=== PATIENT | female | born 1985 | race Caucasian/White ===

== ENCOUNTER 2022-02-18 00:28 | Emergency (ER) | payer OTHER, SELFPAY ==
--- NOTE | 2022-02-18 00:39 | ED.GENADULT ---
HPI - General Adult General Time Seen by Provider: 00:39 Date Seen: 02/18/22 Chief complaint: Unspecified Complaint, Adult Stated complaint: Can't find tampon Time Seen by Provider: 02/18/22 00:33 Source: patient and family Mode of arrival: ambulatory Limitations: no limitations History of Present Illness HPI narrative: 36-year-old female who comes in with concern for vaginal foreign body. She put in a tampon about 7:00 p.m. and is unable to find it now. She is concerned cancer mother has a history of toxic shock syndrome. She denies any vaginal or pelvic pain. No other concerns today. Review of Systems Status of ROS: Reports: 10 or more systems reviewed and unremarkable except as noted in History and below Exam Narrative: Exam Narrative: General: well nourished , NAD Head: Atraumatic and normocephalic ENT: External ears and external nose are normal Eyes: Conjunctiva clear, pupils are equal reactive, external ocular motions are intact Neck: Full spontaneous range of motion of the neck Lungs: No respiratory distress Musculoskeletal: No tenderness or deformity Neurologic: No gross focal neurologic deficits Skin: Psoriatic patches on the upper extremities bilaterally : No foreign body seen Psych: Mood and affect are appropriate Course Course Hospital Course: Patient seen and examined, prior records are reviewed. Patient presents with concern for vaginal foreign body. Chaperoned pelvic exam will be performed. Reevaluation(s) Reevaluation #1: Pelvic exam performed. On speculum exam, the posterior fornix was well visualized as well the cervix, no foreign body was seen. Bimanual exam was performed as well with no foreign body palpated. Patient tolerated this well and is discharged. Time: 00:58 Medical Decision Making Medical Records Medical records reviewed: Yes I reviewed the patient's medical records Lab Data Lab results reviewed: Yes I reviewed the patient's lab results Discharge Plan Discharge Clinical Impression: Normal pelvic exam Patient Disposition: Home, Self-Care Condition: Stable Additional Instructions: No vaginal foreign bodies or tampons were seen on exam today. If you have further concerns, follow-up with primary care next week. Activity Level: No Restrictions Discharge Diet: Regular Stand Alone Forms: [employer] Info Instructions
[2022-02-18 00:44] VITALS: BP 134/91; PULSE 74; RESP 16; TEMP 36.7; O2SAT 99
--- NOTE | 2022-02-18 00:45 | PC.NURSE ---
nurse set up and at bedside with pt and pts for vaginal/speculum exam. pt tolerated procedure well.
--- NOTE | 2022-02-18 01:04 | PC.NURSE ---
pt presents with , states she thought her tampon was stuck/left in her vagina tonight. She states she put a tampon in this evening and when she went to change the tampon there was no string. pt states she was unable to find so came in to ED. Denies pain/discomfort.
[2022-02-18 01:07] VITALS: BP 134/91; PULSE 74; RESP 16; TEMP 36.7; O2SAT 99
== END 2022-02-18 01:21 | disposition home or self-care (01) ==
LOC: ED 01:22
PROVIDERS: Emergency Provider Family Medicine; PCP Physician Assistant Medical
DX: Z71.1 Person with feared health complaint in whom no diagnosis is made (principal)
CPT/HCPCS: 99282

== ENCOUNTER 2022-08-24 09:47 | Outpatient (CLI) | payer OTHER, SELFPAY ==
--- NOTE | 2022-08-24 10:15 | CRLHL7_ITS ---
For Patients: As a result of the Century Cures Act, medical imaging exams and procedure reports are released immediately into your electronic medical record. You may view this report before your referring provider. If you have questions, please contact your health care provider. Indication: Fertility testing Technique: Hysterosalpingogram performed in routine fashion. Fluoroscopic time 32 seconds. IMPRESSION: Normal patency of the fallopian tubes with spillage into the peritoneal cavity. No endometrial filling defect. Dictated by Stephen Woodall MD @ 08/24/2022 11:30:14 AM (Electronically Signed)
--- NOTE | 2022-08-24 10:45 | P.GYNPRC_ITS ---
Procedure Note Date Seen: 08/24/22 Procedure Details: PREPROCEDURE DIAGNOSIS: Primary infertility, unexplained. POSTPROCEDURE DIAGNOSIS: 1. Infertility. 2. Patent fallopian tubes bilaterally. Uniform appearance to endometrial cavity. NAME OF PROCEDURE: Hysterosalpingogram. ANESTHESIA: None. COMPLICATIONS: None. PROCEDURE: After obtaining verbal consent, the patient was placed in the dorsal lithotomy position on the x-ray table. An open-sided bivalve speculum was introduced into the vagina and the cervix easily visualized. The cervix and vagina were then prepped with Betadine. The anterior lip of the cervix was grasped with a single-tooth tenaculum for traction. A balloon tipped double- lumen catheter was then gently inserted through the cervical opening into the uterine cavity to the level of the fundus. The balloon was insufflated with 1.5 mL of air. The speculum was removed. The patient was repositioned in the supine position, covered, and the radiologist was called to the room. A hysterosalpingogram was then performed. A total of approximately 3 cc of Optiray 300 water soluble contrast dye was injected through the double-lumen catheter under moderate pressure. There was immediate fill of the uterine cavity to the cornua and immediate fill of both fallopian tubes and free spillage of dye on both sides. The balloon was deflated. The catheter was removed. Tenaculum was removed. Speculum exam revealed no bleeding from cervix. The patient tolerated the procedure well, though she did have moderate cramping discomfort during and just after the procedure. She was discharged to home in stable condition.
== END 2022-08-24 09:48 | disposition home or self-care (01) ==
LOC: RAD 09:48
PROVIDERS: PCP Physician Assistant Medical; Visit Provider Family Medicine
DX: Z31.41 Encounter for fertility testing (principal)
CPT/HCPCS: 58340; 74740; A4649; Q9967

== ENCOUNTER 2022-08-28 12:55 | Outpatient (CLI) | payer OTHER, SELFPAY ==
--- NOTE | 2022-08-28 13:00 | CRLHL7_ITS ---
For Patients: As a result of the Century Cures Act, medical imaging exams and procedure reports are released immediately into your electronic medical record. You may view this report before your referring provider. If you have questions, please contact your health care provider. INDICATION: INFERTILITY COMPARISON: none TECHNIQUE: 2D lewis scale and color Doppler images were acquired of the pelvis using a transabdominal and transvaginal approach. FINDINGS: Sonographic images demonstrate a normal size and smooth outer contour of the uterus. Uterus measures 7.6 cm in length by 2.6 cm in AP diameter by 3.1 cm in transverse dimension. The myometrium has a normal uniform echotexture. The endometrial lining appears normal and measures 6 mm in composite thickness. The right ovary measures 2.5 x 1.5 x 1.6 cm in size and the left ovary measures 2.9 x 1.8 x 2.4 cm. The ovaries demonstrate normal arterial and venous blood flow on color Doppler analysis. There are no suspicious fluid collections within the cul-de-sac. IMPRESSION: Normal pelvic ultrasound. Dictated by Stephen Woodall MD @ 08/29/2022 10:03:32 AM (Electronically Signed)
--- NOTE | 2022-08-28 15:01 | P.PCN_ITS ---
Procedure Note Time Seen by Provider: : Date Seen: 08/28/22 Provider Contact Time: Date of procedure: 08/28/22 Will [facility] bill your pro fee for this procedure?: Yes Procedure: Preop diagnosis: Infertility of unknown etiology Postop diagnosis: Same with small mass consistent with endometrial polyp Procedure: Saline sonohysterogram with ultrasound. Anesthesia: None Surgeon: Taryn Herman Procedure Description: The patient was placed in the dorsal lithotomy position. A sterile, bivalve, Graves, open-sided speculum was placed in the vaginal canal to visualize the cervix. The cervix was prepped with Betadine. The anterior lip of the cervix was grasped with a single-tooth tenaculum and a sonohysterogram Pipelle was advanced into the uterus. No cervical dilator was needed. The Pipelle balloon was filled with 3 mL air. The tenaculum and speculum were removed. The vaginal ultrasound probe was then advanced into the vaginal canal. The balloon was noted to take up most of the space in the endometrium so the air was decreased and the sonohysterogram catheter pulled to the lower uterine segment. 10 mL of saline was instilled and multiple vaginal some images were taken. The endometrium appeared thin with a single 0.6 x 0.6 cm fundal mass identified which will consistent with a polyp. The sonohysterogram catheter was then removed. The patient tolerated this procedure with significant cramping but felt well once the procedure was complete. She will make an appointment with either Dr. Herman or Dr. Vila to discuss hysteroscopy dilation and curettage. Surgeon: Taryn Herman MD
== END 2022-08-28 12:56 | disposition home or self-care (01) ==
LOC: US 12:55
PROVIDERS: PCP Physician Assistant Medical; Visit Provider Family Medicine
DX: Z31.41 Encounter for fertility testing (principal)
CPT/HCPCS: 58340; 76830; 76831; 76856; A4649

== ENCOUNTER 2022-09-26 07:28 | Day surgery (SDC) | payer OTHER, SELFPAY ==
[2022-09-26 07:51] LABS: Ur HCG Qualitative* Negative (Negative)
[2022-09-26 07:54] VITALS: BMI 32.8
[2022-09-26 08:00] VITALS: BP 133/85; PULSE 87; RESP 16; TEMP 36.7; O2SAT 98
[2022-09-26] MEDS: SODIUM CHLORIDE 0.9 % (FLUSH) 10 ML SYRINGE IVF (08:19)
[2022-09-26] MEDS: LACTATED RINGERS 1000 ML 1,000 ML 100 ML IV (08:19)
--- NOTE | 2022-09-26 08:20 | SUR.PREOP ---
Patient provided home covid negative results to RN.
--- NOTE | 2022-09-26 08:36 | PM.PROC ---
Procedure Note Time Seen by Provider: 08:36 Date Seen: 09/26/22 Date of procedure: 09/26/22 Will [facility] bill your pro fee for this procedure?: Yes Procedure: Preoperative diagnosis: 36 year-old G0 with possible endometrial polyp on sonohysterogram Postoperative diagnosis: Same Procedure: Hysteroscopy, Dilation and Curettage using the Truclear incisor Anesthesia: Conscious sedation, paracervical block. Surgeon: Taryn Herman MD Install And Repair Technician: None Estimated blood loss: 3 mL Specimen: Endometrial curettings to pathology. Findings: Exam under anesthesia: Uterus: Anteverted position, less than less than 8 week sized, mobile, with no masses or nodularity palpable. Uterus sounded to 9 cm. No adnexal masses or nodularity palpable. On hysteroscopy: Possible endometrial polyp in the right cornual area of the endometrium otherwise normal. Possibly normal slightly thickened endometrium in the right cornua. Procedure: Sharri was taken to the operating operating room more conscious sedation was found to be adequate. The patient was placed on in the dorsal lithotomy position and an exam under anesthesia was performed with findings stated above. She was then prepped and draped in a normal sterile manner. A bivalve speculum was placed in the vagina. The cervix appears nulliparous. Otherwise no abnormalities. The paracervical block was placed using 0.5% Marcaine, 5 mL was injected at the 4 and 8 o'clock positions on the cervix. The anterior lip of the cervix was grasped with a long Allis clamp. The cervix dilated to Hegar 6. The uterus sounded to 9 cm. The Truclear hysteroscope was advanced into the uterus. A diagnostic hysteroscopy was performed with normal saline as the insufflation medium. Findings are stated above. The Truclear incisor was then advanced through the camera. The curettage was performed with the incisor over an approximately 2 minutes. The incisor was then removed. The endometrial cavity appeared normal. Saline deficit at the end of the procedure 265 mL. Total saline used 700 mL. Nothing was need for hemostasis. The hysteroscope, Allis clamp and speculum were removed from the vaginal canal. The patient tolerated the procedure well. Sponge, lap and instrument counts were correct x2 at the end of the procedure. The patient was taken to the recovery area in stable condition. Surgeon: Taryn Herman MD
--- NOTE | 2022-09-26 08:45 | W.ANESCHARGE ---
Anesthesia Charges Start Date/Time Anesthesia Start Date: 09/26/22 Anesthesia Start Time: 08:53 Stop Date/Time Anesthesia Stop Date: 09/26/22 Anesthesia Stop Time: 09:33
--- NOTE | 2022-09-26 09:32 | W.ANESCHARGE ---
Anesthesia Charges Start Date/Time Anesthesia Start Date: 09/26/22 Anesthesia Start Time: 08:53 Stop Date/Time Anesthesia Stop Date: 09/26/22 Anesthesia Stop Time: 09:33
[2022-09-26 09:34] VITALS: BP 113/73; PULSE 79; RESP 16; TEMP 36.3; O2SAT 91
[2022-09-26 09:45] VITALS: BP 109/72; PULSE 66; RESP 16; O2SAT 96
[2022-09-26 10:00] VITALS: BP 109/75; PULSE 64; RESP 16; O2SAT 96
[2022-09-26 10:15] VITALS: BP 105/62; PULSE 72; RESP 16; O2SAT 96
== END 2022-09-26 10:43 | disposition home or self-care (01) ==
PROVIDERS: PCP Physician Assistant Medical; Visit Provider Obstetrics & Gynecology
PROC: 0UDB8ZZ Extraction of Endometrium, Via Natural or Artificial Opening Endoscopic (ICD-10-PCS; CPT 58558; principal; 2022-09-26 08:45)
DX: N84.0 Polyp of corpus uteri (principal)
CPT/HCPCS: 58558; 00952; 81025; 88305; J1100; J1885; J2250; J2405; J2704; J3010; J7120

== ENCOUNTER 2024-04-23 20:18 | Outpatient (CLI) | payer OTHER, SELFPAY ==
[2024-04-23] VITALS (7 sets, daily range): BP systolic 133–150; BP diastolic 73–83; PULSE 77–91; TEMP 36.4; O2SAT 96
--- OUTSIDE RECORDS SUMMARY | 2024-04-23 20:21 | XMS_ITS | Clinical Summary ---
Author Organization [facility] Address [place], [place] [address] Care Team Providers Care Junior Loan Processor Name Role Phone NeelSirsherice Guerrero DO Primary Care Provider [phone] Michael Coleman Unavailable Yefri Mejia MD Unavailable [phone] Allergies No known active allergies Medications Medication Sig Dispensed Refills Start Date End Date Status ketoconazole 2% shampoo (NIZORAL) 2 % shampooIndication s:Tinea versicolor Put on your rash daily and leave on for 5 minutes before washing off 120 mL 5 12/14/2021 Active clobetasol 0.05% (TEMOVATE 0.05% OINTMENT) 0.05 % ointmentIndicatio ns:Psoriasis Apply topically to affected area(s) 2 times daily. 60 g 2 12/14/2021 Active calcipotriene 0.005% (DOVONEX) 0.005 % ointment FOR MAINTENANCE, APPLY TO AFFECTED AREAS DAILY. 02/17/2022 Active sertraline (ZOLOFT) 25 mg tabletIndications :Generalized anxiety disorder Take 1 Tablet (25 mg) by mouth every morning. Take with 50mg for total of 75mg. 90 Tablet 3 06/08/2023 Active vit no.124/iron/folic ( VITAMIN ORAL) Take by mouth. Active levothyroxine (SYNTHROID) 150 mcg tabletIndications :Hypothyroidism (acquired) Take 1 Tablet (150 mcg) by mouth before breakfast. 90 Tablet 3 10/25/2023 Active aspirin 81 mg cap Take 81 mg by mouth once daily. Active durable medical equipment (DME)Indications: Elevated blood pressure reading without diagnosis of hypertension,Supe rvision of normal first , antepartum Automated blood pressure cuff for measuring blood pressure at home. Length of need 99 1 Each 12/24/2023 Active sertraline (ZOLOFT) 50 mg tabletIndications :Generalized anxiety disorder Take 1 Tablet (50 mg) by mouth once daily in the morning. Take with 25 mg tab for TDD 75 mg 90 Tablet 3 01/29/2024 Active Breast Pump PurchaseIndicatio ns:Care and examination of lactating mother Electric breast pump for home use. Gestational age at delivery: 40 weeks. Reason for need: return to work. Length of need: 99 months (lifetime use) 1 Each 02/27/2024 Active amoxicillin-clavu lanate (AUGMENTIN) 875-125 mg tabletIndications :Acute non-recurrent maxillary sinusitis Take 1 Tablet by mouth every 12 hours for 10 days. 20 Tablet 03/31/2024 4 Discontinue d(*Med complete/Re gimen complete/[place] of care change) Active Problems Problem Noted Date Diagnosed Date Anxiety in in second trimester, antepa rtum 03/10/2024 Overview (03/10/2024): MPP CONSULT (Dr. Spicer with initial Level II scan 01/28/24) Anxiety: She reports history of anxiety. We discussed that is not protective against mental illness. Untreated depression or anxiety can increased risk of and low weight. She is encouraged to maintain contact with her mental edu providers and seek help if she feels anxiety is worsening. Medications can be used in if clinically indicated. SSRI's are the most common medications used. She is presently on sertraline and reports doing well on this. The cardiac defects associated with Paxil not observed to be a class effect. SSRI's however are associated with pulmonary hypertension in newborns exposed in the 2nd and 3rd trimester. The overall risk of this is low, however. For acute episodes, hydroxyzine (Vistaril) of Buspirone (Buspar) are preferred over benzodiazepines. Medical therapy is a weighing of risks and benefits. Peripartum anxiety and depression risk is increased and may be seen prior to delivery in up to 50% of patients. Screening for anxious/depressive symptoms at every visit is recommended. Use of mindfulness meditation apps was advised. Elderly primigravida in second trimester 024 Hypothyroidism affecting in second tri mester 01/28/2024 Overview (03/10/2024): MPP CONSULT Dr. Spicer (With initial Level II scan) 01/28/24 Hypothyroidism: The patient reports a history of hypothyroidism. The goal of thyroid replacement remains maintenance of TSH levels <2.5mU/L in the first trimester and <3.0mU/L in the second and third trimesters. The free T4 should be kept at the upper one third of normal. More than half patients with preexisting hypothyroidism will require more synthetic thyroxine during the . Typically a dose increase of 30% is required. TSH and free T4 levels should be checked every 4 weeks until 26-28wks. Once TSH levels are stable, they may be checked at minimum once a trimester. Untreated or inadequately treated hypothyroidism is associated with an increased risk for growth restriction and preeclampsia. There is debate as to whether the this may also improve neurologic outcomes and fetus is exposed to inadequate thyroid hormone during . the dose of synthetic thyroxine may be reduced to the prepregnancy level with a TSH checked 4-6wks . There has been an association with maternal hypothyroidism and low weight. Advanced maternal age: Risks of aneuploidy, GDM, preeclampsia and IUGR (more if age >40) discussed with patient. She has had low risk cell free DNA testing performed. All questions regarding aneuploidy screening options and risks of advanced maternal age were answered to her satisfaction today. Current Outpatient Medications: aspirin 81 mg cap, Take 81 mg by mouth once daily., Disp: , Rfl: levothyroxine (SYNTHROID) 150 mcg tablet, Take 1 Tablet (150 mcg) by mouth before breakfast., Disp: 90 Tablet, Rfl: 3 sertraline (ZOLOFT) 25 mg tablet, Take 1 Tablet (25 mg) by mouth every morning. Take with 50mg for total of 75mg., Disp: 90 Tablet, Rfl: 3 sertraline (ZOLOFT) 50 mg tablet, Take 1 Tablet (50 mg) by mouth once daily in the morning. Take with 25 mg tab for TDD 75 mg, Disp: 90 Tablet, Rfl: 3 Medications have been reviewed by me and are current to the best of my knowledge and ability. Chronic hypertension affecting 024 Overview (03/12/2024): No current medications [facility] High-risk supervision 12/24/2023 Overview (03/05/2024): Sharri Bailon : 1985 REFERRING PROVIDER/CLINIC LOCATION/FAX #: Yefri Mejia MD - [place] Primary provider approves scheduling of recommended ultrasounds/testing: Yes [facility] ULTRASOUND/TESTING PATIENT Support person name: Tobias ULTRASOUND TYPE: 03/12 Growth REASON FOR VISIT: AMA, assess remaining anatomy and growth: anatomy was not seen well today: aortic/ductal arches, IVC/SVC, 4CH, diaphragm and S spine. NEXT VISIT ALERTS: Final CORRINA by Early Ultrasound LMP Date: Patient's last menstrual period was 09/12/2023 (approximate). CORRINA: 06/18/21 Early US: Date: 11/06/23 GA: 7w6d CORRINA: 06/18/24 PrePregnancy Weight: 193 # 3.2 oz Height 63.5 in : BMI: 33.69 PLANS & FUTURE APPOINTMENTS: ULTRASOUND/GROWTH PLAN: 6 weeks to assess remaining anatomy and growth. - Through: - Growth: Next TESTING PLAN: - Testing: Through DELIVERY PLAN: - Scheduled delivery: - Preferred delivery location: PRIMARY DIAGNOSIS: 38 y.o. Estimated Date of Delivery: 06/18/24 AMA Hypothyroid Elevated BP without dx of hypertension (checking home BP) PREVIOUS ULTRASOUNDS: 03/12/24 26w0d 01/28/24 19w5d EFW 310 grams, percentile: 47. ECHO: SPECIALISTS/CONSULTS: Include: Specialty MD Clinic Name Phone# [facility] [place] and ADDED TO PATIENT CARE TEAM GENETICS: NIPS: low risk Declined carrier screening CARE COORDINATION: PERTINENT LABS: Labs reviewed? Yes Normal? Yes Blood type: O Rh Positive Antibody screen: Negative 02/25/24 Pre E labs WNL X PCR 0.1 PERTINENT MEDS: Levothyroxine bASA Sertraline PROCEDURES: PLAN OF CARE: 01/28/24 per RL -Return to primary provider for continued care. -A follow up ultrasound is recommended in 6 weeks to assess remaining anatomy and growth. 10/24/2023 Overview (03/21/2024): Estimated Date of Delivery: 06/18/24 c/w dating US Patient's last menstrual period was 09/12/2023 (approximate). GBS: 28wk labs: GLUCOSE,GESTATIONAL Date Value Ref Range Status 03/20/2024 128 70 - 139 mg/dL Final HEMOGLOBIN Date Value Ref Range Status 02/25/2024 12.7 12.0 - 16.0 g/dL Final TREPONEMA PALLIDUM Date Value Ref Range Status 03/20/2024 Non-Reactive Non-Reactive Final Last Tdap: 03/20/24 Last Flu vaccine: 03/20/24 OB Labs: ABORH Date Value Ref Range Status 10/24/2023 O Rh Positive Final ANTIBODY SCREEN Date Value Ref Range Status 10/24/2023 Negative Negative Final TREPONEMA PALLIDUM Date Value Ref Range Status 10/24/2023 Non-Reactive Non-Reactive Final RUBELLA IGG ANTIBODY Date Value Ref Range Status 10/24/2023 1.70 >=1.00 Index Final INTERPRETATION Date Value Ref Range Status 10/24/2023 Positive Final Comment: Presence of detectable IgG antibodies. A positive result generally indicates exposure to the virus or previous vaccination, but is not an indication of active infection or stage of disease. HBSAG Date Value Ref Range Status 10/24/2023 Nonreactive Nonreactive Final HEPATITIS C ANTIBODY Date Value Ref Range Status 12/14/2021 Non-Reactive Non-Reactive Final Comment: Antibodies to HCV not detected; does not exclude the possibility of exposure to HCV. HIV-1/HIV-2 SCREEN Date Value Ref Range Status 10/24/2023 Non-Reactive Non-Reactive Final Comment: HIV-1 p24 and HIV-1/HIV-2 Ab Not Detected. HEMOGLOBIN Date Value Ref Range Status 10/24/2023 14.1 12.0 - 16.0 g/dL Final PLATELET COUNT Date Value Ref Range Status 10/24/2023 252 140 - 440 thou/cu mm Final CHLAMYDIA PROBE Date Value Ref Range Status 10/24/2023 Negative Final N GONORRHOEAE PROBE Date Value Ref Range Status 10/24/2023 Negative Final No Known Allergies OB History Para Term AB Living 1 0 0 0 0 0 SAB IAB Ectopic Multiple Live Births 0 0 0 0 0 # Outcome Date GA Lbr Natalio/2nd Weight Sex Delivery Anes PTL Lv 1 Current Past Medical History: . Date Disease of thyroid gland hypothyroid Infertility, female Kidney stone 2021 Pap smear for cervical cancer screening 12/14/2021 Plan: Pap and HPV 12/2026 Psoriasis Varicella 1999 Past Surgical History: . Laterality Date BIOPSY ENDOMETRIAL 2022 endometrial biopsy removal OTHER Egg harvesting Problems (from 10/24/23 to present) No problems associated with this episode. Eli Paige RN ....10/24/2023 5:04 PM Psoriasis 06/08/2023 Tinea versicolor 12/14/2021 Pap smear for cervical cancer screening 12/15/19 Overview (02/23/2022): Plan: Pap and HPV 12/2026 Hypothyroidism (acquired) 07/27/2021 Overview (03/10/2024): Current Outpatient Medications: aspirin 81 mg cap, Take 81 mg by mouth once daily., Disp: , Rfl: levothyroxine (SYNTHROID) 150 mcg tablet, Take 1 Tablet (150 mcg) by mouth before breakfast., Disp: 90 Tablet, Rfl: 3 sertraline (ZOLOFT) 25 mg tablet, Take 1 Tablet (25 mg) by mouth every morning. Take with 50mg for total of 75mg., Disp: 90 Tablet, Rfl: 3 sertraline (ZOLOFT) 50 mg tablet, Take 1 Tablet (50 mg) by mouth once daily in the morning. Take with 25 mg tab for TDD 75 mg, Disp: 90 Tablet, Rfl: 3 Medications have been reviewed by me and are current to the best of my knowledge and ability. Estimated Date of Delivery Comme nts Yes 06/18/2024 Based on last me nstrual period of 09/12/2023 (Approximate), Did have spotting 10/08/23 Resolved Problems Problem Noted Date Diagnosed Date Resolved Date Infertility, female 03/10/20 24 Encounters Date Type Department Care Team Description 04/21/2024 9:55 AM CDT OB Encounter [facility] [address] [place] [address] Yefri Mejia MD Care (31w 5d/) 04/21/2024 9:00 AM CDT Ancillary Procedure [facility] [address] [place] [address] Arrived 04/21/2024 Travel 04/10/2024 3:15 PM CDT OB Encounter [facility] [place] [address] [address] Yefri Mejia MD Care (30w 1d) 04/10/2024 Travel 03/24/2024 9:05 AM CDT E-Visit [facility] [place] [address] [address] Yefri Mejia MD eVisit for Cough 03/20/2024 3:15 PM CDT OB Encounter [facility] [place] [address] [address] Yefri Mejia MD Care (27w 1d/); Immunization/Injection 03/20/2024 2:45 PM CDT Orders Only [facility] [place] [address] [address] Lab, [place] [facility] 03/20/2024 Travel 03/12/2024 9:00 AM CDT - 03/12/2024 11:59 PM CDT Hospital Encounter [facility] [address] [address] Tobias Spicer MD Supervision of high risk in second trimester (Primary Dx); Hypothyroidism (acquired); Hypothyroidism affecting in second trimester; Anxiety in in second trimester, antepartum; AMA (advanced maternal age) multigravida 35+, first trimester; Chronic hypertension affecting 03/12/2024 Travel 02/25/2024 8:40 AM CDT OB Encounter [facility] [place] [address] [address] Yefri Mejia MD Care (23 wk 5 d/) 02/25/2024 Travel 01/28/2024 12:54 PM CDT - 01/28/2024 11:59 PM CDT Hospital Encounter [facility] [address] [address] Yefri Mejia MD Hypothyroidism affecting in second trimester (Primary Dx); Supervision of high risk in second trimester; Supervision of normal first , antepartum; AMA (advanced maternal age) multigravida 35+, first trimester; High-risk in second trimester; Chronic hypertension affecting 01/28/2024 Travel 01/24/2024 3:40 PM CDT OB Encounter [facility] [address] [facility] [address] [place] [address] Yefri Mejia MD Care (19w 1d/BP have been great at home.) 01/24/2024 Travel from Last 3 Months Immunizations Name Administration Dates Next Due COVID-19 vaccine (Moderna Wero virgilio 50mcg/0.25mL) PF, MDV 05/11/2023 COVID-19 vaccine (hiQ Labs-Bio NTech 30mcg/0.3mL) 12YO+ BIVALENT PF, MDV 04/03/2022 DTaP 10/18/1999, 3,06/21/1989,05/02,03/16/1988,02/02/1988 HIB PRP-OMP (PedvaxHIB) 06/26/1989 Hepatitis B, Unspecified 11/08/1994,04/04/1994,0 02/27/1994 Human Papilloma Virus Vaccine 10/08/2009, 009 INFLUENZA, IIV3 PF (AGE >= 6 MO) 03/20/2024 Inactivated Polio Vaccine 12/07/1992,,05/02/1988,02/01 Influenza A (H1N1), Inactivated 06/02/2009 Influenza, IIV3 (Age 6-35 mos) 04/16/2008 Influenza, IIV3 (Age >=3 years) 03/08/20 14,03/09/2013,03/09/2012,03/12,03/13/2010,04/20/2007 Influenza, IIV4 04/03/2022,,04/08/2019,05/25,04/27/2017,07/04/2016 Influenza,CCIIV4 PRESERV FREE 05/11/2023 MMR 10/18/1999,03/27/1989 Meningococcal Vaccine (Menactra) 01/16/2006 Tdap 03/20/2024,12/14/2021,01/06/2011 Varicella Vaccine 01/13/1997 Family History Medical History Relation Name Comments No Known Problems Brother Hyperlipidemia Father Hypertension Father Osteoporosis Father Parkinsonism Father Cancer-breast Maternal Aunt early detecti on Dementia Maternal Grandfather Skin cancer Maternal Grandfather Alzheimer's disease Maternal Grandmother Psoriasis Maternal Grandmother Fibroids Mother Hyperlipidemia Mother Hypertension Mother Cancer Paternal Grandfather Coronary artery disease Paternal Grandmother Diabetes Paternal Grandmother type 2 Heart attack Paternal Grandmother Diabetes Paternal Uncle type 2 Testicular cancer Paternal Uncle Relation Name Status Comments Brother Alive Father Alive Maternal Aunt Maternal Grandfather Maternal Grandmother Mother Alive Paternal Grandfather Paternal Grandmother Paternal Uncle Social History Tobacco Use Types Packs/Day Years Used Date Smoking Tobacco: Never Smokeless Tobacco: Never Tobacco Cessation:Counseling Given: Yes Alcohol Use Standard Drinks/Week Comments Not Currently 0 (1 standard drink = 0.6 oz pur e alcohol) occassional PHQ-2 Answer Date Recorded PHQ-2 TOTAL SCORE 1 06/08/2023 Social Connections Answer Date Recorded Frequency of Communication with Friends and Fami ly 0 06/08/2023 Financial Resource Strain Answer Date R ecorded Difficulty of Paying Living Expenses 3 06/08/2023 Difficulty of Paying Living Expenses Not on file 06/08/2023 Food Insecurity Answer Date Recorded Worried About Running Out of Food in the Last Ye ar 1 06/08/2023 Transportation Needs Answer Date Record ed Lack of Transportation (Medical) 1 06/08/2023 Housing Stability Answer Date Recorded Unable to Pay for Housing in the Last Year 1 06/08/2023 Estimated Date of Delivery Comme nts Yes 06/18/2024 Based on last me nstrual period of 09/12/2023 (Approximate), Did have spotting 10/08/23 Sex and Gender Information Value Date Recorded Sex Assigned at Female 01/21/2021 10:56 AM CDT Gender Identity Female 01/21/2021 10:56 AM CDT Sexual Orientation Straight 01/21/2021 10 :56 AM CDT Obstetrics History Para Term AB IAB SAB Ectopic Multiple Livin g Live Births 1 Date Outcome GA Total Labor Labor/2nd/3rd Weight Sex Type Anes PTL Yolanda A1 A5 Name Clin Current Summary Episode Dates Number of Fetuses Estimated Date of Delivery 10/24/2023 - Present (04/23/2024) 06/18/2024 (set by Eli Paige RN on 11/15/2023 based on Last Menstrual Period on 09/12/2023 (Approximate)) Dating Summary Based On CORRINA GA Diff Last Menstrual Period on 09/12/2023 (Approximate ) 06/18/2024 Working Comment:Did have spotting 10/08/23 Ultrasound on 11/06/2023 06/18/2024 Same GA:7w6d Vitals Date GA Fund Present FHR Mvmt BP Weight Edema Alb Glu Ket Dil/ Eff/Sta 4 19w5d Inpatient data not displayed here. See encounter summary. 4 26w0d Inpatient data not displayed here. See encounter summary. Notes Progress Notes - OB Encounte r - 04/21/2024 - GA:31w5d 04/21/2024 - 31w5d - Yefri Mejia MD SUBJECTIVE: Sharri Bailon is a 38 y.o. female at 31+5 weeks. No concerns. See visit comments. Home blood pressure readings consistently 110-120s/80s. OBJECTIVE: see OB vitals flow sheet ASSESSMENT : 31+5 weeks gestation AMA, growth ultrasound today shows 1667g (17%) Hypothyroid. Will recheck TSH and free T4 in 3rd trimester. Chronic HTN PLAN: labor signs and symptoms reviewed with patient including pain, cramping, bleeding or leaking fluid. RTC 1 weeks. Starting weekly BPPs next week. Discussed RSV vaccine in 2 weeks Yefri Mejia MD .................... 04/21/2024 9:59 AM Progress Notes - OB Encounte r - 04/10/2024 - GA:30w1d 04/10/2024 - - Yefri Mejia MD SUBJECTIVE: Sharri Bailon is a 38 y.o. female at 30+1 weeks. Home blood pressure readings 120s/70s. See visit comments. OBJECTIVE: see OB vitals flow sheet ASSESSMENT : 30+1 weeks gestation AMA Hypothyroid, in appropriate range for last visit PLAN: labor signs and symptoms reviewed with patient including pain, cramping, bleeding or leaking fluid. RTC 2 weeks. Growth US with next visit. Reviewed RSV vaccine recommendations. Yefri Mejia MD .................... 04/10/2024 3:21 PM Progress Notes - OB Encounte r - 03/20/2024 - GA:27w1d 03/20/2024 - - Yefri Mejia MD SUBJECTIVE: Sharri Bailon is a 38 y.o. female at 27+1 weeks. Home blood pressure readings 120s/70s. Reviewed follow up recommendations from [facility]. No concerns. See visit comments. OBJECTIVE: see OB vitals flow sheet ASSESSMENT : 23+5 weeks gestation AMA Hypothyroid PLAN: labor signs and symptoms reviewed with patient including pain, cramping, bleeding or leaking fluid. TSH/T4 level today Diabetes and syphilis screening as well as TDaP. Continue home blood pressure readings. RTC 3 weeks. Yefri Mejia MD .................... 03/20/2024 2:55 PM Progress Notes - Hospital En counter - 03/12/2024 - GA:26w0d 03/12/2024 - - Sav Crystal MD [facility]/SW OB FOLLOW UP PER [facility] (30528.0) 26w0d Estimated Date of Delivery: 06/18/24 38 y.o. [id number] Your patient had an ultrasound with [facility] on 03/12/24 . The report is ready and can be found in the Results review section of the [facility]. The Impression from the report is below. Problem list updated Patient Active Problem List Diagnosis Code Hypothyroidism (acquired) E03.9 Tinea versicolor B36.0 Pap smear for cervical cancer screening Z12.4 Psoriasis L40.9 Z34.90 [facility] High-risk supervision O09.90 Elderly primigravida in second trimester O09.512 Hypothyroidism affecting in second trimester O99.282, E03.9 Chronic hypertension affecting O10.919 Anxiety in in second trimester, antepartum O99.342, F41.9 US OB FOLLOW UP PER [facility] (83670.0) Referred By: YEFRI MEJIA MD Indications Code 26 weeks gestation of Z3A.26 Advanced maternal age, primigravida 28225 Elevated BP without dx of HTN Low Risk NIPT +levothyroxine, bASA, sertraline Consult Dr. Spicer 01/28/24 01/28/24 MPP Level II: EFW 47%/AC 28% Normal anatomy/limited heart views 03/12/24 MPP f/u: EFW 814 grams (24%/AC 20%) The remaining anatomy was visualized and the anatomy survey is now complete. IMPRESSIONS: Intrauterine at 26w 0d. presentation is Cephalic. EFW 814 grams, percentile: 24. Deepest Vertical Pocket of amniotic fluid: 5.96 cm. No major anomalies identified on limited survey: The remaining anatomy was visualized and the anatomy survey is now complete. Appropriate symmetric growth. Placental location: Anterior. There is no evidence of placenta previa. The transabdominal cervical length is seen 4.7 cm. RECOMMENDATIONS: -Return to primary OB provider for continued care. -No medication changes are indicated. -Patient with history of elevated blood pressure: If meets criteria for CHTN would begin weekly testing at 32 weeks or earlier if clinically warranted with primary OB providers -Present findings are reassuring. -A follow up ultrasound for growth is recommended at 32-34 weeks (Hypothyroid on replacement) with primary OB providers. -The patient was directed to schedule with OB provider as discussed at their visit today. COMMENT: The patient was seen by the Perinatologist today. The previous ultrasound and the records were reviewed. The results of today's ultrasound were communicated to the patient. New government regulations related to the Cures act require that this note be released to the patient immediately, sometimes before the referring provider has been contacted. A portion of the information was presented verbally to the patient. The remainder is submitted as background for the referring provider, to be discussed as needed. Medical Decision Making: Moderate Level 95178 Moderate number/complexity of problems including an undiagnosed new problem with uncertain prognosis or an acute illness with systemic symptoms for mother or fetus, etc. Moderate amount and/or complexity of Data reviewed and analyzed including review of prior ultrasound, ordering another ultrasound, and review of prior external notes, etc. Moderate risk of morbidity or mortality related to prescription drug treatment, elective major surgery, or social determinants of health, etc. Services Provided: Procedures Code FOLLOW UP GROWTH 95356.0 Thank you for allowing us to participate in her care Sav Crystal MD Maternal /Critical Care Medicine [facility] [phone] office [phone] Cell/text Progress Notes - OB Encounte r - 02/25/2024 - GA:23w5d 02/25/2024 - wd - Yefri Mejia MD SUBJECTIVE: Sharri Bailon is a 38 y.o. female at 23+5 weeks. No concerns. Reviewed ultrasound report and recommendations from [facility]. Home blood pressure 110-130s/70s. OBJECTIVE: see OB vitals flow sheet ASSESSMENT : 23+5 weeks gestation AMA Elevated blood pressure readings in clinic, with normal home blood pressure readings. Hypothyroid PLAN: labor signs and symptoms reviewed with patient including pain, cramping, bleeding or leaking fluid. Baseline pre-e labs done today. TSH/T4 level checked today and again in 4 weeks per [facility] RTC 4 weeks with diabetes and syphilis screening as well as TDaP. Continue home blood pressure readings. Follow up ultrasound with [facility] in 2 weeks as scheduled. Yefri Mejia MD .................... 02/25/2024 8:50 AM Progress Notes - OB Encounte r - 01/24/2024 - GA:19w1d 01/24/2024 - 19w1d - Yefri Mejia MD SUBJECTIVE: Sharri Bailon is a 38 y.o. female at 19+1 weeks. Home blood pressure 118-131/70-80s even at the dentist. No concerns. See visit comments. OBJECTIVE: see OB vitals flow sheet ASSESSMENT : 19+1 weeks gestation AMA Hypothyroid Elevated blood pressure readings PLAN: Warning signs and symptoms reviewed with patient including pain, cramping, bleeding or leaking fluid. Level 2 US next week. Continue 81 mg ASA TSH within range last month, will check again with diabetes screening. Home readings are within normal range. However she likely has a component ofChronic vs gestational HTN. RTC 4 weeks. Yefri Mejia MD .................... 01/24/2024 4:00 PM Progress Notes - OB Encounte r - 12/24/2023 - GA:14w5d 12/24/2023 - 14w5d - Yefri Mejia MD SUBJECTIVE: Sharri Bailon is a 38 y.o. female at 14+5 weeks. No concerns. See visit comments. OBJECTIVE: see OB vitals flow sheet ASSESSMENT : 14+5 weeks gestation AMA Hypothyroid PLAN: Warning signs and symptoms reviewed with patient including pain, cramping, bleeding or leaking fluid. On ASA 81 mg. prescription for home blood pressure cuff provided today. NIPT testing is negative, level 2 ultrasound ordered for AMA. TSH today. RTC 4 weeks. Yefri Mejia MD .................... 12/24/2023 8:22 AM Progress Notes - OB Encounte r - 11/26/2023 - GA:10w5d 11/26/2023 - 10w5d - Yefri Mejia MD FIRST OB VISIT HPI: Sharri Bailon is a 37 y.o. female at 10w5d with rodríguez intrauterine here today for a initial OB exam. Estimated due date is Estimated Date of Delivery: 06/18/24 based on LMP and confirmed with 7 week 3 day ultrasound. Nausea/Vomiting: no Breast tenderness: yes Fatigue: yes Bleeding: yes Taking vitamins: yes Options of sequential screen, cell-free DNA testing, amniocentesis were discussed. Patient is interested in pursuing testing. Declines CF adn SMA testing. AMA: yes Previous : no OB History Para Term AB Living 1 SAB IAB Ectopic Multiple Live Births # Outcome Date GA Lbr Natalio/2nd Weight Sex Delivery Anes PTL Lv 1 Current Past Medical History: . Date Disease of thyroid gland hypothyroid Infertility, female Kidney stone 2021 Pap smear for cervical cancer screening 12/14/2021 Plan: Pap and HPV 12/2026 Psoriasis Varicella 1999 Past Surgical History: . Laterality Date BIOPSY ENDOMETRIAL 2022 endometrial biopsy removal OTHER Egg harvesting Family History Problem Relation Age of Onset Hypertension Mother Hyperlipidemia Mother Fibroids Mother Hypertension Father Hyperlipidemia Father Parkinsonism Father Osteoporosis Father No Known Problems Brother Cancer-breast Maternal Aunt 55 - 59 early detection Diabetes Paternal Uncle type 2 Testicular cancer Paternal Uncle 40 Alzheimer's disease Maternal Grandmother Psoriasis Maternal Grandmother Skin cancer Maternal Grandfather Dementia Maternal Grandfather Heart attack Paternal Grandmother 77 Diabetes Paternal Grandmother type 2 Coronary artery disease Paternal Grandmother Cancer Paternal Grandfather Social History Tobacco Use Smoking status: Never Smokeless tobacco: Never Substance Use Topics Alcohol use: Not Currently Comment: occassional Current Outpatient Medications Medication Sig calcipotriene 0.005% (DOVONEX) 0.005 % ointment FOR MAINTENANCE, APPLY TO AFFECTED AREAS DAILY. clobetasol 0.05% (TEMOVATE 0.05% OINTMENT) 0.05 % ointment Apply topically to affected area(s) 2 times daily. ketoconazole 2% shampoo (NIZORAL) 2 % shampoo Put on your rash daily and leave on for 5 minutes before washing off levothyroxine (SYNTHROID) 150 mcg tablet Take 1 Tablet (150 mcg) by mouth before breakfast. vit no.124/iron/folic ( VITAMIN ORAL) Take by mouth. sertraline (ZOLOFT) 25 mg tablet Take 1 Tablet (25 mg) by mouth every morning. Take with 50mg for total of 75mg. sertraline (ZOLOFT) 50 mg tablet TAKE 1 TABLET (50 MG) BY MOUTH EVERY MORNING. TAKE WITH 25 MG TAB. FOR TDD 75 MG No current facility-administered medications for this visit. Medications have been reviewed by me and are current to the best of my knowledge and ability. ALLERGIES Patient has no known allergies. MENTAL HEALTH HISTORY History of psychiatric diagnosis: Anxiety Current mental health provider: Yes: PCP Currently taking any psychiatric medications? Yes INFECTION HISTORY Current Drug Use: none Relevant infection history from OB Questionnaire: none REVIEW OF SYSTEMS Comprehensive ROS complete and negative other than noted in HPI and on OB Questionnaire. PHYSICAL EXAM BP 131/85 (Cuff Site: Left Arm, Position: Sitting, Cuff Size: Adult Large) Pulse 88 Wt 87.6 kg (193 lb 3.2 oz) LMP 09/12/2023 (Approximate) Comment: Did have spotting 10/08/23 SpO2 99% BMI 33.69 kg/m?? General Appearance: Alert, appropriate appearance for age. No acute distress. HEENT Exam: Grossly normal. Neck/Thyroid Exam: Supple, no masses, nodes or enlargement. Lungs: Clear to auscultation bilaterally. Breast Exam: Not indicated. Cardiovascular Exam: Regular rate and rhythm. S1, S2, no murmur. Abd: Soft, non-tender, no masses or organomegaly. Skin: no rashes or lesions. Lymphatics: no nodes palpable. Psychiatric Exam: Alert and oriented x 3, appropriate affect. Pelvic Exam: deferred ASSESSMENT/PLAN 37 y.o. at 10w5d with rodríguez intrauterine . ICD-10-CM 1. Supervision of normal first , antepartum Z34.00 NV COLLECTION VENOUS BLOOD VENIPUNCTURE 2. AMA (advanced maternal age) multigravida 35+, first trimester O09.521 DNA SCREEN SEND OUT NV COLLECTION VENOUS BLOOD VENIPUNCTURE Satisfactory exam. Demonstrates appropriate and health-seeking behaviors toward her . Verbalizes good understanding of care schedule and the importance of coming to each visit as scheduled. Start/continue vitamins. Reviewed labs. She was encouraged to call the office with any questions or concerns. Body mass index is 33.69 kg/m??. Diet and expected weight gain discussed with patient. DEPRESSION SCREEN 12/14/2021 11:00 AM 06/08/2023 4:00 PM PHQ Depression Screening Date of PHQ exam (doc flow) 12/14/2021 06/08/2023 1. Lack of interest/pleasure 0 - Not at all 0 - Not at all 2. Feeling down/depressed 1 - Several days 1 - Several days PHQ-2 TOTAL SCORE 1 1 3. Trouble sleeping 0 - Not at all 1 - Several days 4. Decreased energy 1 - Several days 0 - Not at all 5. Appetite change 0 - Not at all 0 - Not at all 6. Feelings of failure 1 - Several days 1 - Several days 7. Trouble concentrating 0 - Not at all 0 - Not at all 8. Activity level 0 - Not at all 0 - Not at all 9. Hurting yourself 0 - Not at all 0 - Not at all PHQ-9 TOTAL SCORE 3 3 PHQ-9 Severity Level none none Functional Impairment not difficult at all not difficult at all Intervention: Currently receiving treatment Yefri Mejia MD Progress Notes - OB Encounte r - 10/24/2023 - GA:6w0d 10/24/2023 - 6w0d - Eli Paige RN SUBJECTIVE: Sharri Bailon is a 37 y.o. female, , who presents for confirmation and ob education. Patient presents to the clinic with spouse. Had positive test at home. This was Unplanned, Desired. Patient was not on contraception. 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 Date Disease of thyroid gland hypothyroid Infertility, female Kidney stone 2021 Pap smear for cervical cancer screening 12/14/2021 Plan: Pap and HPV 12/2026 Psoriasis Varicella 1999 OB History Para Term AB Living 1 SAB IAB Ectopic Multiple Live Births # Outcome Date GA Lbr Natalio/2nd Weight Sex Delivery Anes PTL Lv 1 Current 5P'S SUBSTANCE ABUSE SCREEN FOR ALCOHOL, DRUGS AND TOBACCO: Did any of your parents have a problem with using alcohol or drugs? No Do any of your friends (peers) have problems with drug or alcohol use? No Does your partner have a problem with drug or alcohol use? No Before you knew you were , how often did you drink beer, wine, wine coolers or liquor or use any kind of drug? Rarely In the past month, how often did you drink beer, wine, wine coolers or liquor or use any kind of drug? Sometimes How much did you smoke, vape or use tobacco or nicotine in any form before you knew you were ? Don't Smoke, Vape or use Tobacco Genetic Screening Genetic Screening/Teratology Counseling- Includes patient, baby's father, or anyone in either family with: Patient's age 35 years or older as of estimated date of delivery: No Thalassemia (German, Luxembourger, Mediterranean, or background): MCV less than 80: No Neural tube defect (Meningomyelocele, Spina bifida, or Anencephaly): No Congenital heart defect: No Down syndrome: No Mukul-Sachs (Ashkenazi Adventism, Cajun, Nauruan Addison): No Brenda disease (Ashkenazi Adventism): No Familial dysautonomia (Ashkenazi Adventism): No Sickle cell disease or trait (): No Hemophilia or other blood disorders: No Muscular dystrophy: No Cystic fibrosis: No Lia's chorea: No Intellectual disability and/or autism: No Other inherited genetic or chromosomal disorder: No Maternal metabolic disorder (eg. Type 1 diabetes, PKU): No Patient or baby's father had child with defects not listed above: No Recurrent loss, or a stillbirth: No Medications (including supplements, vitamins, herbs, or OTC drugs)/illicit/recreational drugs/alcohol since last menstrual period: Yes If yes, agent(s) and strength/dosage: alcohol, THC gummies CURRENT MEDICATIONS: Current Outpatient Medications Medication Sig calcipotriene 0.005% (DOVONEX) 0.005 % ointment FOR MAINTENANCE, APPLY TO AFFECTED AREAS DAILY. clobetasol 0.05% (TEMOVATE 0.05% OINTMENT) 0.05 % ointment Apply topically to affected area(s) 2 times daily. ketoconazole 2% shampoo (NIZORAL) 2 % shampoo Put on your rash daily and leave on for 5 minutes before washing off levothyroxine (SYNTHROID) 125 mcg tablet TAKE 1 TABLET (125 MCG) BY MOUTH BEFORE BREAKFAST vit no.124/iron/folic ( VITAMIN ORAL) Take by mouth. sertraline (ZOLOFT) 25 mg tablet Take 1 Tablet (25 mg) by mouth every morning. Take with 50mg for total of 75mg. sertraline (ZOLOFT) 50 mg tablet TAKE 1 TABLET (50 MG) BY MOUTH EVERY MORNING. TAKE WITH 25 MG TAB. FOR TDD 75 MG No current facility-administered medications for this visit. Medications have been reviewed by me and are current to the best of my knowledge and ability. ALLERGIES: Patient has no known allergies. OBJECTIVE: LMP 09/12/2023 (Approximate) Comment: Did have spotting 10/08/23 ,URINE (no units) Date Value 10/24/2023 Positive (Positive) ASSESSMENT/PLAN: No diagnosis found. EDUCATION/PATIENT INSTRUCTIONS - Advised patient to start/continue vitamin. - Discussed risk of using alcohol, tobacco, other drugs in . - Discussed healthy lifestyle in . - Provided copy of Beginnings book and book inserts, discussed [id number] medications, and follow up. - Encouraged patient to call clinic at [phone] with any vaginal bleeding, fluid leaking from vagina, severe abdominal pain, nausea with severe vomiting, fever higher than 100.4F, painful urination, headache not relieved by Tylenol, or other concerns - labs completed with today's visit. - Patient informed to schedule 1st trimester dating ultrasound between 7-10 weeks. - Initial OB appointment with FP/OB scheduled. PHQ-9, and COVID-19 vaccine discussion to be completed at this visit. Future Appointments Date Time Provider Department Center 11/06/2023 4:00 PM NFLD ULTRASOUND [facility] 11/13/2023 8:[address] [facility] 11/26/2023 9:30 AM Yefri Mejia MD [facility] Eli Paige RN .................... 10/24/2023 1:52 PM Last Filed Vital Signs Vital Sign Reading Time Taken Comments Blood Pressure 136/83 04/21/2024 9:44 AM CDT Pulse 76 04/21/2024 9:44 AM CDT Temperature 36.3 ??C (97.4 ??F) 07/24/2023 9:08 AM CS T Respiratory Rate 18 06/30/2019 12:5 4 PM [employer] Oxygen Saturation 100% 04/21/2024 9:44 AM CDT Inhaled Oxygen Concentration - - Weight 93.4 kg (205 lb 12.8 oz) 04/21/2024 9:44 AM CDT Height 161.3 cm (5' 3.5) 10/24/2023 9:19 AM CDT Body Mass Index 35.88 10/24/2023 9:19 AM CDT Plan of Treatment Upcoming Encounters Date Type Department Care Team (Late st Contact Info) Description 04/28/2024 1:00 PM CDT Ancillary Procedure [facility] [address] [place] [address] 04/28/2024 2:15 PM CDT OB Encounter [facility] [address] [place] [address] Yefri Mejia MD [address] [place] [address] 05/05/2024 9:05 AM CDT OB Encounter [facility] [address] [facility] [address] Yefri Mejia MD [address] [facility] [address] 05/05/2024 4:00 PM CDT Ancillary Procedure [facility] [address] [facility] [address] 05/12/2024 9:45 AM [employer] Ancillary Procedure [facility] [address] [place] [address] 05/12/2024 10:45 AM [employer]PER[employer] OB Encounter [facility] [address] [facility] [address] Yefri Mejia MD [address] [facility] [address] 05/19/2024 8:15 AM PA[employer] SUPER[employer]OR Ancillary Procedure [facility] [address] [facility] [address] 05/19/2024 9:05 AM [employer] SUPER[employer] OB Encounter [facility] [address] [facility] [address] Yefri Mejia MD [address] [facility] [address] 05/26/2024 8:15 AM [employer] SUPER[employer]OR Ancillary Procedure [facility] [address] [facility] [address] 05/26/2024 9:05 AM PA[employer] SUPER[employer]OR OB Encounter [facility] [address] [place] [address] Yefri Mejia MD [address] [place] [address] 06/02/2024 8:15 AM PA[employer] SUPER[employer] Ancillary Procedure [facility] [address] [place] [address] 06/02/2024 9:05 AM PA[employer] PL[employer] SUPER[employer]OR OB Encounter [facility] [address] [facility] [address] [place] [address] 06/09/2024 8:15 AM [employer] SU[employer] Ancillary Procedure [facility] [place] [address] 06/09/2024 9:05 AM [employer] SUPER[employer] OB Encounter [facility] [place] [address] [place] [address] [address] 06/16/2024 8:15 AM PASTE PL[employer] SUPER[employer]OR Ancillary Procedure [facility] [place] [address] [address] 06/16/2024 9:05 AM PASTE PLANT SUPER[employer]OR OB Encounter [facility] [place] [address] Yefri Mejia MD Jaida [facility] [address] Health Maintenance Due Date Last Done Comments COVID-19 vaccine series ( season) 2024 05/11/2023, 05/11/2023, 04/03/2022, Additional history exists RSV vaccine for adults or (1 - Risk 1-dose series) 04/23/2024 Depression screening for age 12+ 06/08/2024 06/08/2023, 12/14/2021, 01/21/2021, Additional history exists BMI (ht and wt on same day) for age 18+ 10/23/2024 10/24/2023, 06/08/2023, 12/14/2021, Additional history exists Pap test for age 21-65 12/14/2026 , 12/14/2021, 11/28/2018 Tetanus booster 03/20/2034 03/20/2024, 0 02/2022, 01/06/2011 Hepatitis C screening for age 18-79 Completed 12/14/2021 HIV for age 15-65 Completed 10/24/2023, 06/08/2023 Influenza for age 9-49 Completed , 05/11/2023, 04/03/2022, Additional history exists Tdap Completed 03/20/2024, 0 02/2022, 01/06/2011 Pneumococcal series for age 6-64 Aged Out No longer eligible based on patient's age to complete this topic Procedures Procedure Name Priority Date/Time Associated Diagnosis Comments US OB FOLLOW UP ANY TRI SINGLE TA Routine 04/21/2024 9:29 AM CDT Supervision of high-risk , second trimester AMA (advanced maternal age) multigravida 35+, first trimester TREPONEMA PALLIDUM Routine 03/20/2024 3: 48 PM CDT Supervision of high-risk , second trimester GLUCOSE,GESTATIONAL Routine 03/20/2024 3 :48 PM CDT Supervision of high-risk , second trimester T4,FREE Routine 03/20/2024 3:48 PM CDT Hypothyroidism affecting in second trimester TSH Routine 03/20/2024 3:48 PM CDT Hypothyroidism affecting in second trimester US OB FOLLOW UP ANY TRI SINGLE TA Routine 03/12/2024 9:23 AM CDT AMA (advanced maternal age) multigravida 35+, first trimester Hypothyroidism affecting in second trimester Chronic hypertension affecting PROTEIN/CREAT RATIO,URINE Routine 02/25/2024 9:25 AM CDT Elevated blood pressure reading without diagnosis of hypertension Supervision of high-risk , second trimester RED CELL MORPHOLOGY Routine 02/25/2024 9 :23 AM CDT Elevated blood pressure reading without diagnosis of hypertension Supervision of high-risk , second trimester PLATELET ESTIMATE Routine 02/25/2024 9:2 3 AM CDT Elevated blood pressure reading without diagnosis of hypertension Supervision of high-risk , second trimester MANUAL DIFFERENTIAL Routine 02/25/2024 9 :23 AM CDT Elevated blood pressure reading without diagnosis of hypertension Supervision of high-risk , second trimester CBC WITH AUTO DIFFERENTIAL Routine 02/25/2024 9:23 AM CDT Elevated blood pressure reading without diagnosis of hypertension Supervision of high-risk , second trimester CBC WITH AUTO DIFFERENTIAL Routine 02/25/2024 9:23 AM CDT Elevated blood pressure reading without diagnosis of hypertension Supervision of high-risk , second trimester AST (SGOT) Routine 02/25/2024 9:23 AM CDT Elevated blood pressure reading without diagnosis of hypertension Supervision of high-risk , second trimester ALT (SGPT) Routine 02/25/2024 9:23 AM CDT Elevated blood pressure reading without diagnosis of hypertension Supervision of high-risk , second trimester CREATININE Routine 02/25/2024 9:23 AM CDT Elevated blood pressure reading without diagnosis of hypertension Supervision of high-risk , second trimester T4,FREE Routine 02/25/2024 9:23 AM CDT Hypothyroidism affecting in second trimester TSH Routine 02/25/2024 9:23 AM CDT Hypothyroidism affecting in second trimester US OB DETAIL ANATOMY SINGLE Routine 01/28/2024 2:49 PM CDT High-risk in second trimester ANTI HIV 1/2 Routine 10/24/2023 10:18 AM CDT , unspecified gestational age ANTI HCV Routine 12/14/2021 11:55 AM CDT Need for hepatitis C screening test HPV HIGH RISK Routine 12/14/2021 11:30 AM CDT Pap smear for cervical cancer screening from Last 3 Months or Most Recently Relevant to Health Maintenance Results * US OB FOLLOW UP ANY TRI SINGLE TA (04/21/2024 9:29 AM CDT) Only the most recent of2 resultswithin the time period is included. Anatomical Region Laterality Modality , 2or 3 TRIMESTER Ultrasound 04/21/2024 4:38 PM CDT Impressions 04/21/2024 4:38 PM CDT Sonographic gestational age 31 weeks 1 day and sonographic due date of 06/22/2024. Good correlation with dates. Normal interval growth. Estimated weight at 17th percentile. Abdominal circumference 35th percentile. Dictated by Stephen Wodoall MD @ 04/21/2024 4:38:54 PM (Electronically Signed) Narrative 04/21/2024 4:38 PM CDT For Patients: ??As a result of the Cures Act, medical imaging exams and procedure reports are released immediately into your electronic medical record. ??You may view this report before your referring provider. ??If you have questions, please contact your health care provider. INDICATION: Third trimester scan, evaluate growth. COMPARISON: 03/12/2024 TECHNIQUE: Real time lewis scale imaging of the fetus was performed. FINDINGS: Sonographic imaging demonstrates a single living intrauterine gestation. ??Fetus demonstrates a regular cardiac rate of 140 beats per minute. ??Fetus has a breech position. The placenta lies anteriorly without evidence of placenta previa. ??Amniotic fluid volume appears normal and there is a single deepest vertical pocket: 6.4 cm. The estimated weight is 1667gm which lies at the 17th %. ??On the prior OB ultrasound exam dated 03/12/2024 the estimated weight was at the 20th%. The biometric indices all lie within normal range. ??The HC/AC ratio measures 1.05 range (0.96-1.17). Procedure Note Stephen Woodall MD - 04/21/2024 For Patients: As a result of the Cures Act, medical imagingexams and procedure reports are released immediately into your electronicmedical record. You may view this report before your referring provider.If you have questions, please contact your health care provider. INDICATION: Third trimester scan, evaluate growth. COMPARISON: 03/12/2024 TECHNIQUE: Real time lewis scale imaging of the fetus was performed. FINDINGS: Sonographic imaging demonstrates a single living intrauterine gestation.Fetus demonstrates a regular cardiac rate of 140 beats per minute. Fetushas a breech position. The placenta lies anteriorly without evidence ofplacenta previa. Amniotic fluid volume appears normal and there is asingle deepest vertical pocket: 6.4 cm. The estimated weight [id number] which lies at the 17th %. On the prior OB ultrasound exam dated03/12/2024 the estimated weight was at the 20th%. The fetalbiometric indices all lie within normal range. The HC/AC ratio measures1.05 range (0.96- 1.17). IMPRESSION: Sonographic gestational age 31 weeks 1 day and sonographic due date of06/22/2024. Good correlation with dates. Normal interval growth. Estimated weight at 17th percentile. Abdominal circumference 35thpercentile. Dictated by Stephen Woodall MD @ 04/21/2024 4:38:54 PM (Electronically Signed) Yefri Mejia MD US * TREPONEMA PALLIDUM (03/20/2024 3:48 PM CDT) TREPONEMA PALLIDUM Non-Reacti ve Non-Reacti ve 03/21/2024 1:51 PM CDT [facility] Blood BLOOD SPECIMEN / Unknown Venipuncture / Unknown 03/20/2024 3:48 PM CDT 03/20/2024 3:51 PM CDT Yefri Mejia MD [facility] [address] [place] [address], [place] * TSH (03/20/2024 3:48 PM CDT) Only the most recent of2 resultswithin the time period is included. Pathologist [facility] TSH 1.64 0.27 - 4.20 uIU/mL 03/21/2024 1:51 PM CDT [facility] Blood BLOOD SPECIMEN / Unknown Venipuncture / Unknown 03/20/2024 3:48 PM CDT 03/20/2024 3:51 PM CDT [facility] LABOR[facility] - 03/21/2024 1:51 PM CDT In Adults, TSH values between 5.00 and 10.00 uIU/ml do not necessarily indicate the presence of Hypothyroidism. Correlation with clinical findings such as presence of goiter and/or Thyroperoxidase (TPO) Antibody may be helpful. For more information please refer to JUNIOR 2004; 291: 228-238. Yefri Mejia MD CHEMISTRY [facility] [address] [place] [address], [place] * GLUCOSE,GESTATIONAL (03/20/2024 3:48 PM CDT) GLUCOSE,GESTAT IONAL 128 70 - 139 mg/dL 03/20/2024 3:[address] [facility] Blood BLOOD SPECIMEN / Unknown Venipuncture / Unknown 03/20/2024 3:48 PM CDT 03/20/2024 3:51 PM CDT Yefri Mejia MD CHEMISTRY [facility] [address] [place] [address], [place] [phone] * T4,FREE (03/20/2024 3:48 PM CDT) Only the most recent of2 resultswithin the time period is included. T4,FREE 1.20 0.93 - 1.70 ng/dL 03/21/2024 1:51 PM CDT [facility] Blood BLOOD SPECIMEN / Unknown Venipuncture / Unknown 03/20/2024 3:48 PM CDT 03/20/2024 3:51 PM CDT Yefri Mejia MD CHEMISTRY Performing Organization Address [facility]/ZIP Co de Phone Number [facility] [address] [address], * PROTEIN/CREAT RATIO,URINE (02/25/2024 9:25 AM CDT) Pathologist [facility] PROTEIN QUANT,RAND URINE 14 1 - 14 mg/dL 02/25/2024 7:01 PM CDT [facility] CREAT,RANDOM URINE 169.0 28.0 - 217.0 mg/dL 02/25/2024 7:01 PM CDT [facility] PROT/CREAT RATIO,UR 0.1 <0.2 02/25/2024 7:01 PM CDT [facility] Urine URINE SPECIMEN / Unknown Non-Blood / Unknown 02/25/2024 9:25 AM CDT 02/25/2024 9:25 AM CDT Yefri Mejia MD URINE Performing Organization Address [facility] Co de Phone Number [facility] [address] [place] [address], * (ABNORMAL) CBC WITH AUTO DIFFERENTIAL (02/25/2024 9:23 AM CDT) [facility] WHITE BLOOD COUNT 12.5(H) 4.5 - 11.0 thou/cu mm 02/25/2024 10:[address] [facility] RED BLOOD COUNT 4.20 4.00 - 5.20 mil/cu mm 02/25/2024 10:[address] [facility] HEMOGLOBIN 12.7 12.0 - 16.0 g/dL 02/25/2024 10:[address] [facility] HEMATOCRIT 37.0 33.0 - 51.0 % 02/25/2024 10:[address] [facility] MCV 88 80 - 100 fL 02/25/2024 10:[address] [facility] MCH 30.2 26.0 - 34.0 pg 02/25/2024 10:[address] [facility] MCHC 34.3 32.0 - 36.0 g/dL 02/25/2024 10:[address] [facility] RDW 13.7 11.5 - 15.5 % 02/25/2024 10:[address] [facility] PLATELET COUNT 242 140 - 440 thou/cu mm 02/25/2024 10:[address] [facility] MPV 9.6 6.5 - 11.0 fL 02/25/2024 10:[address] [facility] Blood BLOOD SPECIMEN / Unknown Venipuncture / Unknown 02/25/2024 9:23 AM CDT 02/25/2024 9:24 AM CDT Yefri Mejia MD HEMATOLOGY Performing Organization Address City/[facility]/ZIP Co de Phone Number [facility] [address] [place] [address], * RED CELL MORPHOLOGY (02/25/2024 9:23 AM CDT) RBC COMMENT RBC morphology appears normal RBC morphology appears normal, RBC morphology within normal limits for newborns. 02/25/2024 10:[address] [facility] Blood BLOOD SPECIMEN / Unknown Venipuncture / Unknown 02/25/2024 9:23 AM CDT 02/25/2024 9:24 AM CDT Yefri Mejia MD HEMATOLOGY [facility] [address] [place] [address], [place] [phone] * PLATELET ESTIMATE (02/25/2024 9:23 AM CDT) PLATELET ESTIMATE Adequate Adequate, No estimate 02/25/2024 10:[address] [facility] Blood BLOOD SPECIMEN / Unknown Venipuncture / Unknown 02/25/2024 9:23 AM CDT 02/25/2024 9:24 AM CDT Yefri Mejia MD HEMATOLOGY [facility] [address] [place] [address], * (ABNORMAL) MANUAL DIFFERENTIAL (02/25/2024 9:23 AM CDT) % NEUTROPHILS 83.0 % 02/25/2024 10:[address] [facility] % LYMPHOCYTES 9.0 % 02/25/2024 10:[address] [facility] % MONOCYTES 5.0 % 02/25/2024 10:[address] [facility] % EOSINOPHILS 3.0 % 02/25/2024 10:[address] [facility] % BASOPHILS 0.0 % 02/25/2024 10:[address] [facility] NEUTROPHILS ABSOLUTE 10.4(H) 1.7 - 7.0 thou/cu mm 02/25/2024 10:[address] [facility] LYMPHOCYTES ABSOLUTE 1.1 0.9 - 2.9 thou/cu mm 02/25/2024 10:[address] [facility] MONOCYTES ABSOLUTE 0.6 <0.9 thou/cu mm 02/25/2024 10:[address] [facility] EOSINOPHILS ABSOLUTE 0.4 <0.5 thou/cu mm 02/25/2024 10:[address] [facility] BASOPHILS ABSOLUTE 0.0 <0.3 thou/cu mm 02/25/2024 10:[address] Blood BLOOD SPECIMEN / Unknown Venipuncture / Unknown 02/25/2024 9:23 AM CDT 02/25/2024 9:24 AM CDT Yefri Mejia MD HEMATOLOGY [facility] [address] [place] [address], [place] [phone] * (ABNORMAL) CREATININE (02/25/2024 9:23 AM CDT) eGFR >90 >90 mL/min/1.7 3m2 02/25/2024 5:03 PM CDT [facility] Comment:As of 2021, eG FR is calculated by the CKD-EPI creatinine equation without race adjustment. ??eGFR can be influenced by muscle mass, exercise, and diet. ??The reported eGFR is an estimation only and is only applicable if the renal function is stable. CREATININE 0.44(L) 0.50 - 0.90 mg/dL 02/25/2024 5:03 PM CDT [facility] Blood BLOOD SPECIMEN / Unknown Venipuncture / Unknown 02/25/2024 9:23 AM CDT 02/25/2024 9:24 AM CDT Yefri Mejia MD CHEMISTRY [facility] [address] [place] [address], * ALT (SGPT) (02/25/2024 9:23 AM CDT) Pathologist [facility] ALT (SGPT) 12 10 - 35 IU/L 02/25/2024 5:03 PM CDT [facility] Blood BLOOD SPECIMEN / Unknown Venipuncture / Unknown 02/25/2024 9:23 AM CDT 02/25/2024 9:24 AM CDT Yefri Mejia MD CHEMISTRY [facility] [address] [place] [address], * AST (SGOT) (02/25/2024 9:23 AM CDT) Pathologist [facility] AST (SGOT) 17 10 - 35 IU/L 02/25/2024 5:03 PM CDT [facility] Blood BLOOD SPECIMEN / Unknown Venipuncture / Unknown 02/25/2024 9:23 AM CDT 02/25/2024 9:24 AM CDT Yefri Mejia MD CHEMISTRY [facility] [address] [place] [address], [place] * US OB DETAIL ANATOMY SINGLE (01/28/2024 2:49 PM CDT) Anatomical Region Laterality Modality , 2or 3 TRIMESTER Ultrasound 01/28/2024 1:36 PM CDT Narrative 01/28/2024 3:12 PM CDT Referred By: ? Indications Code 19 weeks gestation of Z3A.19 Advanced maternal age, primigravida 46[address] Elevatecd BP wothout dx of HTN Low Risk NIPT +levothyroxine, bASA, sertraline IMPRESSION: Intrauterine at 19w 5d. presentation is Cephalic. EFW 310 grams, percentile: 47. ?? Growth parameters and estimated weight are appropriate for gestational age. No gross structural defects detected but some limited views. No markers for aneuploidy identified. Deepest Vertical Pocket of amniotic fluid: 5.33 ??cm. Placental location: Anterior. ?? There is no evidence of placenta previa. The transabdominal cervical length is not seen 4.7 cm. The following anatomy was not seen well today: aortic/ductal arches, IVC/SVC, 4CH, diaphragm and S spine. RECOMMENDATIONS: -Return to primary provider for continued care. -A follow up ultrasound is recommended in 6 weeks to assess remaining anatomy and growth. ?? -Serial growth scans. -The patient was directed to schedule with [facility] ??as discussed at their visit today. -Patient directed to schedule at the front office director on the way out, or to call [facility] within 2 business days to schedule follow up. COMMENT: The patient was seen by the Perinatologist today. ??The previous ultrasound and the records were reviewed. ??The results of today's ultrasound were communicated to the patient. ?? Alternatives are available for detecting anomalies, aneuploidy and predicting developmental outcome for this . ??At the conclusion of our consultation the patient decided to have a followup ultrasound in 4 weeks to complete the anatomy and growth. ??No additional screening scheduled. History of Chronic Hypertension based on review of blood pressures elevated in office prior to 20 weeks. ??BP today was 127/66, which is normal. ??Currently not taking anti-hypertension medications. ??We discussed with her the risk associated with chronic hypertension in , including increased risk of IUGR and stillbirth, abruption and superimposed preeclampsia. ?? These problems are associated with an increased risk of adverse and infant outcomes including sequelae associated with premature delivery. ??With superimposed preeclampsia there is an increased risk of liver, renal and hematologic abnormalities, stroke, and seizures. ??If not performed already, a baseline workup for preeclampsia should be initiated. ??Medical therapy should be continued in order to maintain blood pressure less than 140/90 with a target blood pressure of 120-130's/70-80's. ACEI and ARB are absolutely contraindicated in , and care should be exercised regarding the use of diuretics such as furosemide and hydrochlorothiazide. Aspirin may help reduce the risk of pre-eclampsia in women at high-risk to develop the disease. ??As such we recommend 81 mg aspirin (one baby aspirin) be taken nightly. This should be continued until one week prior to delivery. We recommend serial ultrasounds for growth. In addition, she should begin weekly testing at or around 32 weeks gestation unless clinically indicated more frequently or sooner. ??Delivery should be planned for at about 39 weeks gestation to minimize the likelihood of abruption and stillbirth, assuming that her blood pressures are stable, surveillance testing is reassuring, and the fetus is normally grown. ??Otherwise, delivery may be earlier as indicated, particularly in the presence of super-imposed pre-eclampsia. Hypothyroidism: ??The patient reports a history of hypothyroidism. ??The goal of thyroid replacement remains maintenance of TSH levels <2.5mU/L in the first trimester and <3.0mU/L in the second and third trimesters. ??The free T4 should be kept at the upper one third of normal. More than half patients with preexisting hypothyroidism will require more synthetic thyroxine during the . ??Typically a dose increase of 30% is required. ??TSH and free T4 levels should be checked every 4 weeks until 26-28wks. ??Once TSH levels are stable, they may be checked at minimum once a trimester. ??Untreated or inadequately treated hypothyroidism is associated with an increased risk for growth restriction and preeclampsia. ??There is debate as to whether the this may also improve neurologic outcomes and fetus is exposed to inadequate thyroid hormone during . the dose of synthetic thyroxine may be reduced to the prepregnancy level with a TSH checked 4-6wks . There has been an association with maternal hypothyroidism and low weight. ?? Advanced maternal age: ??Risks of aneuploidy, GDM, preeclampsia and IUGR (more if age >40) discussed with patient. ??She has had low risk cell free DNA testing performed. ?? All questions regarding aneuploidy screening options and risks of advanced maternal age were answered to her satisfaction today. Anxiety: She reports history of anxiety. We discussed that is not protective against mental illness. ??Untreated depression or anxiety can increased risk of and low weight. ??She is encouraged to maintain contact with her mental edu providers and seek help if she feels anxiety ??is worsening. ??Medications can be used in if clinically indicated. SSRI's are the most common medications used. ??She is presently on sertraline and reports doing well on this. ??The cardiac defects associated with Paxil not observed to be a class effect. ??SSRI's however are associated with pulmonary hypertension in newborns exposed in the 2nd and 3rd trimester. ??The overall risk of this is low, however. ??For acute episodes, hydroxyzine (Vistaril) of Buspirone (Buspar) are preferred over benzodiazepines. ??Medical therapy is a weighing of risks and benefits. ??Peripartum anxiety and depression risk is increased and may be seen prior to delivery in up to 50% of patients. ??Screening for anxious/depressive symptoms at every visit is recommended. ??Use of mindfulness meditation apps was advised. New government regulations related to the 21st Century Cures act require that this note be released to the patient immediately, sometimes before the referring provider has been contacted. ??A portion of the information was presented verbally to the patient. ??The remainder is submitted as background for the referring provider, to be discussed as needed. MdmMedical Decision Making: Consult Moderate Level 41183 ?Moderate number/complexity of problems including an undiagnosed new problem with uncertain prognosis or an acute illness with systemic symptoms for mother or fetus, etc. ?Moderate amount and/or complexity of Data reviewed and analyzed including review of prior ultrasound, ordering another ultrasound, and review of prior external notes, etc. ?Moderate risk of morbidity or mortality related to prescription drug treatment, elective major surgery, or social determinants of health, etc. Services Provided: Procedures Code DETAIL ANATOMY 53011.0 ?? Procedure Note Tobias Spicer MD - 01/28/2024 Referred By: IndicationsCode 19 weeks gestation of [id number] Advanced maternal age, [id number] Elevatecd BP wothout dx of HTN Low Risk NIPT +levothyroxine, bASA, sertraline IMPRESSION: Intrauterine at 19w 5d. presentation is Cephalic. EFW 310 grams, percentile: 47. Growth parameters and estimated weight are appropriate forgestational age. No gross structural defects detected but some limited views. No markers for aneuploidy identified. Deepest Vertical Pocket of amniotic fluid: 5.33 cm. Placental location: Anterior. There is no evidence of placenta previa. The transabdominal cervical length is not seen 4.7 cm. The following anatomy was not seen well today: aortic/ductal arches, IVC/SVC, 4CH, diaphragm and S spine. RECOMMENDATIONS: -Return to primary provider for continued care. -A follow up ultrasound is recommended in 6 weeks to assess remainingfetal anatomy and growth. -Serial growth scans. -The patient was directed to schedule with [facility] as discussed at theirvisit today. -Patient directed to schedule at the front office director on the way out, or [facility] business days to schedule follow up. COMMENT: The patient was seen by the Perinatologist today. The previous ultrasoundand the records were reviewed. The results of today's ultrasound werecommunicated to the patient. Alternatives are available for detecting anomalies, aneuploidy andpredicting developmental outcome for this . At the conclusion of ourconsultation the patient decided to have a followup ultrasound in 4 weeks to complete the anatomyand growth. No additional screening scheduled. History of Chronic Hypertension based on review of blood pressureselevated in office prior to 20 weeks. BP today was 127/66, which is normal. Currently not takinganti- hypertension medications. We discussed with her the risk associated with chronichypertension in , including increased risk of IUGR and stillbirth, abruption andsuperimposed preeclampsia. These problems are associated with an increased risk of adverse pregnancyand outcomes including sequelae associated with premature delivery. With superimposedpreeclampsia there is an increased risk of liver, renal and hematologic abnormalities, stroke,and seizures. If not performed already, a baseline workup for preeclampsia should beinitiated. Medical therapy should be continued in order to maintain blood pressure less than 140/90with a target blood pressure of 120-130's/70-80's. ACEI and ARB are absolutely contraindicatedin , and care should be exercised regarding the use of diuretics such as furosemideand hydrochlorothiazide. Aspirin may help reduce the risk of pre-eclampsia inwomen at high-risk to develop the disease. As such we recommend 81 mg aspirin (one babyaspirin) be taken nightly. This should be continued until one week prior to delivery. We recommendserial ultrasounds for growth. In addition, she should begin weekly testing ator around 32 weeks gestation unless clinically indicated more frequently or sooner. Deliveryshould be planned for at about 39 weeks gestation to minimize the likelihood of abruptionand stillbirth, assuming that her blood pressures are stable, surveillance testingis reassuring, and the fetus is normally grown. Otherwise, delivery may be earlier asindicated, particularly in the presence of super-imposed pre-eclampsia. Hypothyroidism: The patient reports a history of hypothyroidism. Thegoal of thyroid replacement remains maintenance of TSH levels <2.5mU/L in the firsttrimester and <3.0mU/L in the second and third trimesters. The free T4 should be kept at the upperone third of normal. More than half patients with preexisting hypothyroidism will require moresynthetic thyroxine during the . Typically a dose increase of 30% is required. TSHand free T4 levels should be checked every 4 weeks until 26-28wks. Once TSH levels arestable, they may be checked at minimum once a trimester. Untreated or inadequately treatedhypothyroidism is associated with an increased risk for growth restriction andpreeclampsia. There is debate as to whether the this may also improve neurologic outcomes andfetus is exposed to inadequate thyroid hormone during . the dose of synthetic thyroxine may be reduced to theprepregnancy level with a TSH checked 4-6wks . There has been an association with maternal hypothyroidism and low birthweight. Advanced maternal age: Risks of aneuploidy, GDM, preeclampsia and IUGR(more if age >40) discussed with patient. She has had low risk cell free DNA testingperformed. All questions regarding aneuploidy screening options and risks of advanced maternal agewere answered to her satisfaction today. Anxiety: She reports history of anxiety. We discussed that isnot protective against mental illness. Untreated depression or anxiety can increased risk ofpreterm and low weight. She is encouraged to maintain contact with her mental heathproviders and seek help if she feels anxiety is worsening. Medications can be used inpregnancy if clinically indicated. SSRI's are the most common medications used. She is presentlyon sertraline and reports doing well on this. The cardiac defects associated with Paxil notobserved to be a class effect. SSRI's however are associated with pulmonary hypertensionin newborns exposed in the 2nd and 3rd trimester. The overall risk of this is low, however.For acute episodes, hydroxyzine (Vistaril) of Buspirone (Buspar) are preferred overbenzodiazepines. Medical therapy is a weighing of risks and benefits. Peripartum anxiety anddepression risk is increased and may be seen prior to delivery in up to 50% of patients.Screening for anxious/depressive symptoms at every visit is recommended. Use ofmindfulness meditation apps was advised. New government regulations related to the Cures act requirethat this note be released to the patient immediately, sometimes before the referringprovider has been contacted. A portion of the information was presented verbally to thepatient. The remainder is submitted as background for the referring provider, to be discussed asneeded. MdmMedical Decision Making: Consult Moderate Level 70970 Moderate number/complexity of problems including an undiagnosed newproblem with uncertain prognosis or an acute illness with systemic symptoms for mother or fetus,etc. Moderate amount and/or complexity of Data reviewed and analyzedincluding review of prior ultrasound, ordering another ultrasound, and review of prior externalnotes, etc. Moderate risk of morbidity or mortality related to prescription drugtreatment, elective major surgery, or social determinants of health, etc. Services Provided: ProceduresCode DETAIL [id number] Yefri Mejia MD [place] * ANTI HIV 1/2 (10/24/2023 10:18 AM CDT) HIV-1/HIV-2 SCREEN Non-Reacti ve Non-Reacti ve 10/24/2023 5:15 PM CDT [facility] Comment:HIV-1 p24 and HIV-1/ HIV-2 Ab Not Detected. Blood BLOOD SPECIMEN / Unknown Butterfly / Unknown 10/24/2023 10:18 AM CDT 10/24/2023 10:19 AM CDT Yefri Mejia MD SEND OUTS [facility] [address] [place] [address], [place] * ANTI HCV (12/14/2021 11:55 AM CDT) HEPATITIS C ANTIBODY Non-React binu Non-React binu 12/15/2021 12:24 AM CDT [facility] Comment:Antibodies to HCV no t detected; does not exclude the possibility of exposure to HCV. Blood BLOOD SPECIMEN / Unknown Venipuncture / Unknown 12/14/2021 11:55 AM CDT 12/14/2021 11:55 AM CDT Rhea BALL SEND OUTS [facility] [address] [place] [address], [place] * HPV HIGH RISK (12/14/2021 11:30 AM CDT) TYPE 16 Negative Negative 12/16/2021 2:51 PM CDT [facility] TYPE 18 Negative Negative 12/16/2021 2:51 PM CDT [facility] OTHER HIGH RISK TYPES Negative Negative 12/16/2021 2:51 PM CDT [facility] Other (Cervical) Non-Blood / Unknown 12/14/2021 11:30 AM CDT 12/15/2021 8:23 AM CDT Narrative [facility] - 12/16/2021 2:51 PM CDT HPV types 16, 18, 31, 33, 35, 39, 45, 51, 52, 56, 58, 59, 66 and 68 DNA were undetectable or below the pre-set threshold. Methodology: Deanna Curtis 4800 HPV Test Rhea BALL MICROBIOLOGY [facility] 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
[2024-04-23 21:11] LABS: Hematocrit 38.6 % (33.0-51.0); Hemoglobin* 12.8 gm/dL (12.0-16.0); Mean Corpuscular HGB Conc 33 gm/dL (32-36); Mean Corpuscular Hemoglobin 30 pg (26-34); Mean Corpuscular Volume 90 fL (80-100); Platelet Count* 207 K/uL (140-440); Red Blood Count 4.31 m/uL (4.00-5.20); White Blood Count* 12.39 K/uL (4.50-11.00)
[2024-04-23 21:27] LABS: Slide Review Reflex No
[2024-04-23 21:42] LABS: Alanine Aminotransferase* 13 U/L (4-35); Aspartate Amino Transferase* 17 U/L (12-35); Blood Urea Nitrogen* 7 mg/dL (5-24); Creatinine* 0.5 mg/dL (0.5-1.5); Estimated Glomerular Filt Rate 125 ml/min
[2024-04-23 21:42] LABS: Total Protein Urine 13 mg/dL
[2024-04-23 21:44] LABS: Protein Creatinine Ratio Urine 0.27 (0-0.19)
--- NOTE | 2024-04-23 22:27 | PC.OBNST ---
NST Note NST Note Start: 04/23/24 20:29 Freq: ONCE Status: Complete Protocol: Document 04/23/24 22:25 ASIF (Rec: 04/23/24 22:27 ASIF [id number]) NST Note 1 Para (# of births) 0 EDC 06/18/24 Gestational Age In Weeks & Days 32 Weeks & 0 Days High Risk Factors High Blood Pressure - Preexisting Patient Presented with Complaint(s) of Other Other Complaints High blood pressure at home. Reactive Yes Appropriate for Gestational Age Yes PEDRO Pina RNC Date 04/23/24 Reactive Yes Appropriate for Gestational Age Yes PEDRO Quiles RN Date 04/23/24 OB NST charge Yes Complete NST Note via Write Note Yes The provider's electronic signature indicates the NST is reactive/appropriate for gestational age. *Note to provider: If an addendum is required, open the patient's chart and click on the note under the Nurse/Allied Health tab.
[2024-04-23] MEDS: NIFEdipine 30 MG TAB.ER.24 PO (22:44)
--- NOTE | 2024-04-23 23:34 | PM.OBLDTN ---
OB - Triage/Final Diagnosis Visit Information Date Seen: 04/23/24 Date of evaluation: 04/23/24 Narrative: The patient is a 38 year old 1 para 0 at 32.0 weeks gestation, who presents with high blood pressures at home. She was asymptomatic. Blood pressures 150/81 on arrival. Repeat 140/76, 149/73, 142/78. Pre-E labs negative (protein-creatinine ration 0.27). She received nifedipine 30mg ER and discharge home to have close follow-up with Dr Mejia. Evaluation Laboratory results: Laboratory Tests 04/23/24 04/23/24 Range/Units 21:00 20:58 WBC 12.39 H (4.50-11.00) K/uL RBC 4.31 (4.00-5.20) m/uL Hgb 12.8 (12.0-16.0) gm/dL Hct 38.6 (33.0-51.0) % MCV 90 (80-100) fL MCH 30 (26-34) pg MCHC 33 (32-36) gm/dL Plt Count 207 (140-440) K/uL BUN 7 (5-24) mg/dL Creatinine 0.5 (0.5-1.5) mg/dL Estimated GFR 125 ml/min AST 17 (12-35) U/L ALT 13 (4-35) U/L Urine Creatinine 49.0 mg/dL Protein/Creatinin Ratio 0.27 H (0-0.19) Urine Total Protein 13 mg/dL Vital signs: Vital Signs - 24 hr 04/23/24 20:45 04/23/24 20:46 04/23/24 21:03 Temperature 97.5 F L Pulse Rate 77 77 Blood Pressure 150/81 H 140/76 H Pulse Oximetry 96 04/23/24 21:18 04/23/24 21:48 04/23/24 22:03 Temperature Pulse Rate 83 85 88 Blood Pressure 149/73 H 137/83 142/78 H Pulse Oximetry 04/23/24 22:18 Temperature Pulse Rate 88 Blood Pressure 133/75 Pulse Oximetry Comments: FHT: moderate variability, baseline 125 bpm, accels, no decels. Final Diagnosis (1) Gestational hypertension: Status: Acute Problem details: Gestational hypertension, eval negative for pre-E, started nifedipine 30ER, follow-up in clinic
== END 2024-04-23 22:55 | disposition home or self-care (01) ==
LOC: OB OUT 20:19 → OB 20:20
PROVIDERS: PCP Family Medicine; Visit Provider Student in an Organized Health Care Education/Training Program
DX: O10.913 Unspecified pre-existing hypertension complicating pregnancy, third trimester (principal); Z3A.32 32 weeks gestation of pregnancy
CPT/HCPCS: 36415; 59025; 82565; 82570; 84156; 84450; 84460; 84520; 85027; G0463; A9270

== ENCOUNTER 2024-04-26 19:21 | Outpatient (CLI) | payer OTHER, SELFPAY ==
--- OUTSIDE RECORDS SUMMARY | 2024-04-26 19:24 | XMS_ITS | Clinical Summary ---
Author Organization [facility] Address [place], [place] [address] Care Team Providers Care Secretary Administrative Assistant Name Role Phone NeelSirsherice Guerrero DO Primary Care Provider [phone] Michael Coleman Unavailable Yefri Mejia MD Unavailable [phone] Allergies No known active allergies Medications Medication [...] months (lifetime use) 1 Each 02/27/2024 Active NIFEdipine (PROCARDIA XL) 60 mg extended-release tabletIndications :Gestational hypertension, third trimester Take 1 Tablet (60 mg) by mouth once daily before a meal. 60 Tablet 04/25/2024 Active amoxicillin-clavu lanate (AUGMENTIN) 875-125 mg tabletIndications [...] in second tri mester 01/28/2024 Overview (03/10/2024): [facility] CONSULT Dr. Spicer (With initial Level II [...] affecting 024 Overview (03/12/2024): No current medications MPP High-risk supervision 12/24/2023 Overview (03/05/2024): Sharri Bailon : 1985 REFERRING PROVIDER/CLINIC LOCATION/FAX #: [facility] Primary provider approves scheduling of recommended ultrasounds/testing: Yes [facility] ULTRASOUND/TESTING PATIENT Support person name: Tobias [...] Encounters Date Type Department Care Team Description 04/23/2024 Orders Only [facility] Scanner 1 scan: (1-Ord) [facility], MULTIPLE LAB RESULTS, 04/23/2024 04/21/2024 9:55 AM CDT [facility] [address] Yefri Mejia MD Care (31w 5d/) 04/21/2024 9:00 AM CDT Ancillary Procedure [facility] [address] Arrived 04/21/2024 Travel 04/10/2024 3:15 PM CDT OB [facility] [address] Yefri Mejia MD Care (30w 1d) 04/10/2024 Travel 03/24/2024 9:05 AM CDT [facility] [address] Yefri Mejia MD eVisit for Cough 03/20/2024 3:15 PM CDT OB [facility] [address] Yefri Mejia MD Care (27w 1d/); Immunization/Injection 03/20/2024 2:45 PM CDT Orders Only [facility] [place] [address] Lab, [facility] 03/20/2024 Travel 03/12/2024 9:00 AM CDT - 03/12/2024 11:59 PM CDT Hospital Encounter [facility] [address] [facility] [address] Tobias Spicer MD Supervision of high risk in second trimester (Primary Dx); Hypothyroidism (acquired); Hypothyroidism affecting in second trimester; Anxiety in in second trimester, antepartum; AMA (advanced maternal age) multigravida 35+, first trimester; Chronic hypertension affecting 03/12/2024 Travel 02/25/2024 8:40 AM CDT OB Encounter [facility] [address] [place] [address] Yefri Mejia MD Care (23 wk 5 d/) 02/25/2024 Travel 01/28/2024 12:54 PM CDT - 01/28/2024 11:59 PM CDT Hospital Encounter [facility] [address] [place] [address] Yefri Mejia MD Hypothyroidism affecting in second trimester (Primary Dx); Supervision of high risk in second trimester; Supervision of normal first , antepartum; AMA (advanced maternal age) multigravida 35+, first trimester; High-risk in second trimester; Chronic hypertension affecting 01/28/2024 Travel from Last 3 Months Immunizations Name Administration Dates Next Due COVID-19 vaccine (Moderna Wero virgilio 50mcg/0.25mL) PF, MDV 05/11/2023 COVID-19 vaccine (Pfizer-Bio NTech 30mcg/0.3mL) 12YO+ BIVALENT PF, MDV 04/03/2022 [...] Estimated Date of Delivery 10/24/2023 - Present (04/26/2024) 06/18/2024 (set by Eli Paige RN on [...] r - 04/10/2024 - GA:30w1d 04/10/2024 - 30w1d - Yefri Mejia MD SUBJECTIVE: Sharri Bailon [...] r - 03/20/2024 - GA:27w1d 03/20/2024 - 27 - Yefri Mejia MD SUBJECTIVE: Sharri Bailon is a 38 y.o. female at 27+1 weeks. Home blood pressure readings 120s/70s. Reviewed follow up recommendations from [facility]. No concerns. See visit comments. OBJECTIVE: see [...] counter - 03/12/2024 - GA:26w0d 03/12/2024 - w - Sav Crystal MD MPP/SW US OB FOLLOW UP PER [facility] (36792.0) 26w0d Estimated Date of Delivery: 06/18/24 38 y.o. [id number] Your patient had an ultrasound with [facility] on 03/12/24 . The report is ready and can be found in the Results review section of the [facility]. The Impression from the report is below. Problem list updated Patient Active Problem List Diagnosis Code Hypothyroidism (acquired) E03.9 Tinea versicolor B36.0 Pap smear for cervical cancer screening Z12.4 Psoriasis L40.9 Z34.90 [facility] High-risk supervision O09.90 Elderly primigravida in second trimester O09.512 Hypothyroidism affecting in second trimester O99.282, E03.9 Chronic hypertension affecting O10.919 Anxiety in in second trimester, antepartum O99.342, F41.9 US OB FOLLOW UP PER [facility] (71099.0) Referred By: YEFRI MEJIA MD Indications Code 26 weeks gestation of Z3A.26 Advanced maternal age, primigravida 77[address] Elevated BP without dx of HTN Low Risk NIPT +levothyroxine, bASA, sertraline Consult Dr. Spicer 01/28/24 01/28/24 [facility] Level II: EFW 47%/AC 28% Normal anatomy/limited [...] as needed. Medical Decision Making: Moderate Level 57793 Moderate number/complexity of problems including an undiagnosed [...] Services Provided: Procedures Code FOLLOW UP GROWTH 89733.0 Thank you for allowing us to participate in her care Sav Crystal MD Maternal /Critical Care Medicine [facility] [phone] office [phone] Cell/text Progress Notes - OB Encounte r - 02/25/2024 - GA:23w5d 02/25/2024 - 23w5d - Yefri Mejia MD SUBJECTIVE: Sharri Bailon is a 38 y.o. female at 23+5 weeks. No concerns. Reviewed ultrasound report and recommendations from [facility]. Home blood pressure 110-130s/70s. OBJECTIVE: see OB vitals flow sheet ASSESSMENT : 23+5 weeks gestation AMA Elevated blood pressure readings in clinic, with normal home blood pressure readings. Hypothyroid PLAN: labor signs and symptoms reviewed with patient including pain, cramping, bleeding or leaking fluid. Baseline pre-e labs done today. TSH/T4 level checked today and again in 4 weeks per [facility] RTC 4 weeks with diabetes and syphilis screening as well as TDaP. Continue home blood pressure readings. Follow up ultrasound with [facility] in 2 weeks as scheduled. Yefri Mejia [...] Plan: Pap and HPV 12/2026 Psoriasis Varicella 2000 Past Surgical History: . Laterality Date BIOPSY [...] Supervision of normal first , antepartum Z34.00 GA COLLECTION VENOUS BLOOD VENIPUNCTURE 2. AMA (advanced maternal age) multigravida 35+, first trimester O09.521 DNA SCREEN SEND OUT GA COLLECTION VENOUS BLOOD VENIPUNCTURE Satisfactory exam. 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 - Encouraged patient to call clinic at [phone] with any vaginal bleeding, fluid leaking from [...] Center 11/06/2023 4:00 PM NFLD ULTRASOUND NFLDMI [facility] 11/13/2023 8:[address] NFLDNU [facility] 11/26/2023 9:30 AM Yefri Mejia MD NFLDFP [facility] Eil Paige RN .................... 10/24/2023 1:52 PM Last Filed Vital Signs Vital Sign Reading Time Taken Comments Blood Pressure 136/83 04/21/2024 9:44 AM CDT Pulse 76 04/21/2024 9:44 AM CDT Temperature 36.3 ??C (97.4 ??F) 07/24/2023 9:08 AM CS T Respiratory Rate 18 06/30/2019 12:5 4 PM AUTOMOTIVE SERVICE MANAGER Oxygen Saturation 100% 04/21/2024 9:44 AM CDT Inhaled Oxygen Concentration - - Weight 93.4 kg (205 lb 12.8 oz) 04/21/2024 9:44 AM CDT Height 161.3 cm (5' 3.5) 10/24/2023 9:19 AM CDT Body Mass Index 35.88 10/24/2023 9:19 AM CDT Plan of Treatment Upcoming Encounters Date Type Department Care Team (Late st Contact Info) Description 04/28/2024 1:00 PM CDT Ancillary Procedure [facility] [address] [facility] [place] [address] 04/28/2024 2:15 PM CDT OB Encounter [facility] [address] [facility] [place] [address] Yefri Mejia MD [address] [facility] [place] [address] 05/05/2024 9:05 AM CDT OB Encounter [facility] [address] [facility] [address] Yefri Mejia MD [address] [facility] [address] 05/05/2024 4:00 PM CDT Ancillary Procedure [facility] [address] [facility] [address] 05/12/2024 9:45 AM AUTOMOTIVE SERVICE MANAGER [facility]illary [facility] [address] 05/12/2024 10:45 AM AUTOMOTIVE SERVICE MANAGER OB Encounter [facility] [address] [facility] [address] Yefri Mejia MD [address] [facility] [address] 05/19/2024 8:15 AM AUTOMOTIVE SERVICE MANAGER Ancillary Procedure [facility] [address] [facility] [address] 05/19/2024 9:05 AM AUTOMOTIVE SERVICE MANAGER OB Encounter [facility] [address] [facility] [place] [address] Yefri Mejia MD [address] [facility] [address] 05/26/2024 8:15 AM AUTOMOTIVE SERVICE MANAGER Ancillary Procedure [facility] [address] [facility] [place] [address] 05/26/2024 9:05 AM AUTOMOTIVE SERVICE MANAGER OB Encounter [facility] [address] [facility] [place] [address] Yefri Mejia MD [address] [facility] [place] [address] 06/02/2024 8:15 AM AUTOMOTIVE SERVICE MANAGER Ancillary Procedure [facility] [address] [place] [address] 06/02/2024 9:05 AM AUTOMOTIVE SERVICE MANAGER OB Encounter [facility] [place] [address] [place] [address] [address] 06/09/2024 8:15 AM AUTOMOTIVE SERVICE MANAGER Ancillary Procedure [facility] [place] [address] 06/09/2024 9:05 AM AUTOMOTIVE SERVICE MANAGER OB Encounter [facility] [address] [place] [address] 06/16/2024 8:15 AM AUTOMOTIVE SERVICE MANAGER Ancillary Procedure [facility] [address] 06/16/2024 9:05 AM AUTOMOTIVE SERVICE MANAGER OB Encounter [facility] [address] Yefri Mejia MD [facility] [address] Health Maintenance Due Date Last Done Comments [...] Procedure Name Priority Date/Time Associated Diagnosis Comments SCAN-LABORATORY REPORT 04/23/2024 12:00 AM CDT US OB FOLLOW UP ANY TRI SINGLE [...] Recently Relevant to Health Maintenance Results * SCAN-LABORATORY REPORT (04/23/2024 12:00 AM CDT) Scanner OTHER * US OB FOLLOW UP ANY TRI [...] Abdominal circumference 35th percentile. Dictated by Stephen Woodall MD @ 04/21/2024 [...] vertical pocket: 6.4 cm. The estimated weight [id number] which lies at the 17th %. On [...] 4:38:54 PM (Electronically Signed) Yefri Mejia MD * TREPONEMA PALLIDUM (03/20/2024 3:48 PM CDT) TREPONEMA PALLIDUM Non-Reacti ve Non-Reacti ve 03/21/2024 1:51 PM CDT [facility] Blood BLOOD SPECIMEN / Unknown Venipuncture / Unknown 03/20/2024 3:48 PM CDT 03/20/2024 3:51 PM CDT Yefri Mejia MD SEND OUTS [facility] [address] [place] [address], [place] * TSH (03/20/2024 3:48 PM CDT) Only the most recent of2 resultswithin the time period is included. TSH 1.64 0.27 - 4.20 uIU/mL 03/21/2024 1:51 PM CDT [facility] Blood BLOOD SPECIMEN / Unknown Venipuncture / Unknown 03/20/2024 3:48 PM CDT 03/20/2024 3:51 PM CDT Narrative [facility] - 03/21/2024 1:51 PM CDT In Adults, TSH values between 5.00 and 10.00 uIU/ml do not necessarily indicate the presence of Hypothyroidism. Correlation with clinical findings such as presence of goiter and/or Thyroperoxidase (TPO) Antibody may be helpful. For more information please refer to JUNIOR 2004; 291: 228-238. Yefri Mejia MD CHEMISTRY Performing Organization Address [facility] Co de Phone Number [facility] [address] [place] [address], [place] * GLUCOSE,GESTATIONAL (03/20/2024 3:48 PM CDT) Pathologist [facility] [place] GLUCOSE,GESTAT IONAL 128 70 - 139 mg/dL 03/20/2024 3:57 PM CDT [facility] Blood BLOOD SPECIMEN / Unknown Venipuncture / Unknown 03/20/2024 3:48 PM CDT 03/20/2024 3:51 PM CDT Yefri Mejia MD CHEMISTRY Performing Organization Address City/[facility]/ZIP Co de Phone Number [facility] [address] [place] [address], * T4,FREE (03/20/2024 3:48 PM CDT) Only the most recent of2 resultswithin the time period is included. T4,FREE 1.20 0.93 - 1.70 ng/dL 03/21/2024 1:51 PM CDT [facility] Blood BLOOD SPECIMEN / Unknown Venipuncture / Unknown 03/20/2024 3:48 PM CDT 03/20/2024 3:51 PM CDT Yefri Mejia MD CHEMISTRY Performing Organization Address [facility] Co de Phone Number [facility] [address] [place] [address], [place] * PROTEIN/CREAT RATIO,URINE (02/25/2024 9:25 AM CDT) [facility] PROTEIN QUANT,RAND URINE 14 1 - 14 mg/dL 02/25/2024 7:01 PM CDT [facility] CREAT,RANDOM URINE 169.0 28.0 - 217.0 mg/dL 02/25/2024 7:01 PM CDT [facility] PROT/CREAT RATIO,UR 0.1 <0.2 02/25/2024 7:01 PM CDT [facility] Urine URINE SPECIMEN / Unknown Non-Blood / Unknown 02/25/2024 9:25 AM CDT 02/25/2024 9:25 AM CDT Yefri Mejia MD URINE Performing Organization Address [facility] Co de Phone Number [facility] [address] [place] [address], * (ABNORMAL) CBC WITH AUTO DIFFERENTIAL (02/25/2024 9:23 AM CDT) [facility] WHITE BLOOD COUNT 12.5(H) 4.5 - 11.0 thou/cu mm 02/25/2024 10:26 AM CDT [facility] RED BLOOD COUNT 4.20 4.00 - 5.20 mil/cu mm 02/25/2024 10:26 AM CDT [facility] HEMOGLOBIN 12.7 12.0 - 16.0 g/dL 02/25/2024 10:26 AM CDT [facility] HEMATOCRIT 37.0 33.0 - 51.0 % 02/25/2024 10:26 AM CDT [facility] MCV 88 80 - 100 fL 02/25/2024 10:26 AM CDT [facility] MCH 30.2 26.0 - 34.0 pg 02/25/2024 10:26 AM CDT [facility] MCHC 34.3 32.0 - 36.0 g/dL 02/25/2024 10:26 AM CDT [facility] RDW 13.7 11.5 - 15.5 % 02/25/2024 10:26 AM CDT [facility] PLATELET COUNT 242 140 - 440 thou/cu mm 02/25/2024 10:26 AM CDT [facility] MPV 9.6 6.5 - 11.0 fL 02/25/2024 10:26 AM CDT [facility] Blood BLOOD SPECIMEN / Unknown Venipuncture / Unknown 02/25/2024 9:23 AM CDT 02/25/2024 9:24 AM CDT Yefri Mejia MD HEMATOLOGY [facility] [address] [place] [address], [place] [phone] * RED CELL MORPHOLOGY (02/25/2024 9:23 AM CDT) RBC COMMENT RBC morphology appears normal RBC morphology appears normal, RBC morphology within normal limits for newborns. 02/25/2024 10:26 AM CDT [facility] Blood BLOOD SPECIMEN / Unknown Venipuncture / Unknown 02/25/2024 9:23 AM CDT 02/25/2024 9:24 AM CDT Yefri Mejai MD HEMATOLOGY [facility] [address] [place] [address], [place] [phone] * PLATELET ESTIMATE (02/25/2024 9:23 AM CDT) PLATELET ESTIMATE Adequate Adequate, No estimate 02/25/2024 10:26 AM CDT [facility] Blood BLOOD SPECIMEN / Unknown Venipuncture / Unknown 02/25/2024 9:23 AM CDT 02/25/2024 9:24 AM CDT Yefri Mejia MD HEMATOLOGY [facility] [address] [place] [address], * (ABNORMAL) MANUAL DIFFERENTIAL (02/25/2024 9:23 AM CDT) % NEUTROPHILS 83.0 % 02/25/2024 10:26 AM CDT [facility] % LYMPHOCYTES 9.0 % 02/25/2024 10:26 AM CDT [facility] % MONOCYTES 5.0 % 02/25/2024 10:26 AM CDT [facility] % EOSINOPHILS 3.0 % 02/25/2024 10:26 AM CDT [facility] % BASOPHILS 0.0 % 02/25/2024 10:26 AM CDT [facility] NEUTROPHILS ABSOLUTE 10.4(H) 1.7 - 7.0 thou/cu mm 02/25/2024 10:26 AM CDT [facility] LYMPHOCYTES ABSOLUTE 1.1 0.9 - 2.9 thou/cu mm 02/25/2024 10:26 AM CDT [facility] MONOCYTES ABSOLUTE 0.6 <0.9 thou/cu mm 02/25/2024 10:26 AM CDT [facility] EOSINOPHILS ABSOLUTE 0.4 <0.5 thou/cu mm 02/25/2024 10:26 AM CDT [facility] BASOPHILS ABSOLUTE 0.0 <0.3 thou/cu mm 02/25/2024 10:26 AM CDT [facility] Blood BLOOD SPECIMEN / Unknown Venipuncture / Unknown 02/25/2024 9:23 AM CDT 02/25/2024 9:24 AM CDT Yefri Mejia MD HEMATOLOGY [facility] [address] [place] [address], * (ABNORMAL) CREATININE (02/25/2024 9:23 AM CDT) eGFR >90 >90 mL/min/1.7 3m2 02/25/2024 5:03 PM CDT [facility] Comment:As of 2021, eG FR is calculated by the CKD-EPI creatinine equation without race adjustment. ??eGFR can be influenced by muscle mass, exercise, and diet. ??The reported eGFR is an estimation only and is only applicable if the renal function is stable. CREATININE 0.44(L) 0.50 - 0.90 mg/dL 02/25/2024 5:03 PM CDT [facility] Blood BLOOD SPECIMEN / Unknown Venipuncture / Unknown 02/25/2024 9:23 AM CDT 02/25/2024 9:24 AM CDT Yefri Mejia MD CHEMISTRY [facility] [address] [place], [place] [id number], [place] * ALT (SGPT) (02/25/2024 9:23 AM CDT) ALT (SGPT) 12 10 - 35 IU/L 02/25/2024 5:03 PM CDT [facility] Blood BLOOD SPECIMEN / Unknown Venipuncture / Unknown 02/25/2024 9:23 AM CDT 02/25/2024 9:24 AM CDT Yefri Mejia MD CHEMISTRY [facility] [address] [place] [address], [place] * AST (SGOT) (02/25/2024 9:23 AM CDT) AST (SGOT) 17 10 - 35 IU/L 02/25/2024 5:03 PM CDT [facility] Blood BLOOD SPECIMEN / Unknown Venipuncture / Unknown 02/25/2024 9:23 AM CDT 02/25/2024 9:24 AM CDT Yefri Mejia MD CHEMISTRY [facility] [address] [place] [address], [place] * US OB DETAIL ANATOMY SINGLE (01/28/2024 2:49 PM CDT) Anatomical Region Laterality Modality , 2or 3 TRIMESTER Ultrasound 01/28/2024 1:36 PM CDT Narrative 01/28/2024 3:12 PM CDT Referred By: ? Indications Code 19 weeks gestation of Z3A.19 Advanced maternal age, primigravida 84455 Elevatecd BP wothout dx of HTN Low [...] -The patient was directed to schedule with MPP ??as discussed at their visit today. -Patient directed to schedule at the front window cashier on the way out, or to call MPP within 2 business days to schedule follow [...] with an increased risk of adverse and outcomes including sequelae associated with premature delivery. [...] advised. New government regulations related to the [employer] act require that this note be released to the patient immediately, sometimes before the referring provider has been contacted. ??A portion of the information was presented verbally to the patient. ??The remainder is submitted as background for the referring provider, to be discussed as needed. MdmMedical Decision Making: Consult Moderate Level 75679 ?Moderate number/complexity of problems including an undiagnosed [...] etc. Services Provided: Procedures Code DETAIL ANATOMY 63210.0 ?? Procedure Note Tobias Spicer MD - 01/28/2024 Referred By: IndicationsCode 19 weeks gestation of [id number].19 Advanced maternal age, [id number] Elevatecd BP wothout dx of HTN Low [...] -The patient was directed to schedule with MPP as discussed at theirvisit today. -Patient directed to schedule at the front window cashier on the way out, or to callP within 2 business days to schedule follow [...] with an increased risk of adverse pregnancyand infant outcomes including sequelae associated with premature [...] symptoms at every visit is recommended. Use of[employer] meditation apps was advised. New government regulations related to the Century Cures act requirethat this note be released to the patient immediately, sometimes before the referringprovider has been contacted. A portion of the information was presented verbally to thepatient. The remainder is submitted as background for the referring provider, to be discussed asneeded. MdmMedical Decision Making: Consult Moderate Level 28587 Moderate number/complexity of problems including an undiagnosed [...] of health, etc. Services Provided: ProceduresCode DETAIL [id number] Yefri Mejia MD [place] * ANTI HIV 1/2 (10/24/2023 10:18 AM CDT) HIV-1/HIV-2 SCREEN Non-Reacti ve Non-Reacti ve 10/24/2023 5:15 PM CDT [facility] Comment:HIV-1 p24 and HIV-1/ HIV-2 Ab Not Detected. Blood BLOOD SPECIMEN / Unknown Butterfly / Unknown 10/24/2023 10:18 AM CDT 10/24/2023 10:19 AM CDT Yefri Mejia MD SEND OUTS [facility] [address] [place] [address], [place] * ANTI HCV (12/14/2021 11:55 AM CDT) HEPATITIS C ANTIBODY Non-React binu Non-React binu 12/15/2021 12:24 AM CDT [facility] Comment:Antibodies to HCV no t detected; does not exclude the possibility of exposure to HCV. Blood BLOOD SPECIMEN / Unknown Venipuncture / Unknown 12/14/2021 11:55 AM CDT 12/14/2021 11:55 AM CDT Rhea BALL SEND OUTS [facility] [address] [place] [address], * HPV HIGH RISK (12/14/2021 11:30 AM CDT) TYPE 16 Negative Negative 12/16/2021 2:51 PM CDT [facility] TRAL [facility] TYPE 18 Negative Negative 12/16/2021 2:51 PM CDT [facility] OTHER HIGH RISK TYPES Negative Negative 12/16/2021 2:51 PM CDT [facility] Other (Cervical) Non-Blood / Unknown 12/14/2021 11:30 AM CDT 12/15/2021 8:23 AM CDT Narrative [facility] - 12/16/2021 2:51 PM CDT HPV types 16, 18, 31, 33, 35, 39, 45, 51, 52, 56, 58, 59, 66 and 68 DNA were undetectable or below the pre-set threshold. Methodology: Deanna Curtis 4800 HPV Test Rhea BALL MICROBIOLOGY [facility] [address] [address] [place] [address], from Last 3 Months or Most Recently Relevant to Health Maintenance Care Teams Secretary Administrative Assistant Relationship Specialty Start Date End Date Pooja Shaikh DO [address] [place] [address] PCP - General Family Practice 07/26/[address] [place], [place] [phone] Business Case Analyst 08/14/23 Yefri Mejia MD [address] [place], [place] [phone] Referring Provider Family Practice 12/24/23
[2024-04-26 19:41] LABS: Hematocrit 39.9 % (33.0-51.0); Hemoglobin* 13.2 gm/dL (12.0-16.0); Mean Corpuscular HGB Conc 33 gm/dL (32-36); Mean Corpuscular Hemoglobin 29 pg (26-34); Mean Corpuscular Volume 89 fL (80-100); Platelet Count* 239 K/uL (140-440); Red Blood Count 4.49 m/uL (4.00-5.20)
[2024-04-26 19:45] LABS: Slide Review Reflex No
[2024-04-26 19:51] VITALS: BP 141/82; PULSE 81
[2024-04-26 20:00] LABS: Total Protein Urine 16 mg/dL
[2024-04-26 20:00] LABS: Alanine Aminotransferase* 13 U/L (4-35); Aspartate Amino Transferase* 17 U/L (12-35); Blood Urea Nitrogen* 8 mg/dL (5-24); Creatinine* 0.6 mg/dL (0.5-1.5); Estimated Glomerular Filt Rate 119 ml/min
[2024-04-26 20:01] LABS: Creatinine Urine 23.4 mg/dL; Protein Creatinine Ratio Urine 0.68 (0-0.19)
[2024-04-26 20:22] VITALS: BP 140/82; PULSE 70
[2024-04-26 20:27] VITALS: BP 144/85; PULSE 78
[2024-04-26 20:42] VITALS: BP 135/80; PULSE 71
--- NOTE | 2024-05-04 05:58 | PC.OBNST ---
NST Note NST Note Start: 04/26/24 19:24 Freq: ONCE Status: Discharge Protocol: Document 04/26/24 21:55 RICARDO (Rec: 04/26/24 21:57 RICARDO Desktop) NST Note 1 Para (# of births) 0 EDC 06[birth year]18/24 Gestational Age In Weeks & Days 32 Weeks & 3 Days High Risk Factors High Blood Pressure - Preexisting,High Blood Pressure - Gestational, Advanced Maternal Age Patient Presented with Complaint(s) of Headache,Other Other Complaints Elevated Blood Pressures at Home Reactive Yes PEDRO Hernandez RN Date 04/26/24 Reactive Yes PEDRO Abbasi RN Date 04/26/24 OB NST charge Yes Complete NST Note via Write Note Yes The provider's electronic signature indicates the NST is reactive/appropriate for gestational age. *Note to provider: If an addendum is required, open the patient's chart and click on the note under the Nurse/Allied Health tab.
== END 2024-04-26 21:50 | disposition home or self-care (01) ==
LOC: OB OUT 19:22 → OB 19:23
PROVIDERS: PCP Family Medicine; Visit Provider Family Medicine
DX: O10.913 Unspecified pre-existing hypertension complicating pregnancy, third trimester (principal); O09.523 Supervision of elderly multigravida, third trimester; Z3A.32 32 weeks gestation of pregnancy
CPT/HCPCS: 36415; 59025; 82565; 82570; 84156; 84450; 84460; 84520; 85027; G0463

== ENCOUNTER 2024-05-22 18:09 | Outpatient (CLI) | payer OTHER, SELFPAY ==
[2024-05-22] VITALS (9 sets, daily range): BP systolic 139–150; BP diastolic 78–83; PULSE 82–105; RESP 20; TEMP 36.7; O2SAT 96–97
--- OUTSIDE RECORDS SUMMARY | 2024-05-22 18:12 | XMS_ITS | Clinical Summary ---
Author Organization [facility] Address [place], [place] [address] Care Team Providers Care Gun Perforator Loader Name Role Phone Michael Coleman Unavailable Yefri Mejia MD Unavailable Yefri Mejia MD Primary Care Provider Allergies No known active allergies Medications Medication [...] Take 1 Tablet (60 mg) by mouth two times daily. 180 Tablet 05/19/2024 Active NIFEdipine (PROCARDIA XL) 60 mg extended-release tabletIndications :Gestational hypertension, third trimester Take 1 Tablet (60 mg) by mouth once daily before a meal. 60 Tablet 04/25/2024 4 Discontinue d(Reorder (E-cancel not sent)) NIFEdipine (PROCARDIA XL) 30 mg extended-release tabletIndications :Pre-eclampsia in third trimester Take 1 Tablet (30 mg) by mouth once daily before a meal. 04/28/2024 4 Discontinue d(*Medicati on adjustment) Hospital, Clinic, or Other Facility Administered Medication Ordered Dose Route Frequency Start Date End Date Status betamethasone acet,sod phos 12 mg injection (CELESTONE SOLUSPAN)Indications:Pre-ec lampsia in third trimester 12 mg IM Q 24H 04/28/2024 4 Ended Active Problems Problem Noted Date Diagnosed Date [...] PROVIDER/CLINIC LOCATION/FAX #: Yefri Mejia MD - [facility] Primary provider approves scheduling of recommended ultrasounds/testing: Yes [facility] ULTRASOUND/TESTING PATIENT Support person name: Tobias [...] Pap smear for cervical cancer screening 12/15/19 22 Overview (02/23/2022): Plan: Pap and HPV 12/2026 [...] Encounters Date Type Department Care Team Description 05/19/2024 9:05 AM CLINICAL NURSING ASSISTANT OB Encounter [facility] [address] [facility] [place] [address] Yefri Mejia MD Care (35 weeks 5 days ) 05/19/2024 8:15 AM CLINICAL NURSING ASSISTANT Ancillary Procedure [facility] [address] [facility] [address] Arrived 05/19/2024 Travel 05/16/[address] [place] [address] Ashleigh Gutierrez MD Refill Request (Nifedipine) 05/12/2024 10:45 AM CLINICAL NURSING ASSISTANT OB Encounter [facility] [place] [facility] [place] [address] Yefri Mejia MD Care (34w 5d/) 05/12/2024 9:45 AM CLINICAL NURSING ASSISTANT Ancillary Procedure [place] [address] [address] [facility] [place] [address] 05/12/2024 Travel 05/05/2024 4:00 PM CDT Ancillary Procedure [place] [address] [place] [address] 05/05/2024 9:05 AM CDT OB Encounter [place] [address] [address] [facility] [address] Yefri Mejia MD Care (33w 5d/) 05/05/2024 Travel 04/29/2024 2:20 PM CDT Nurse/Clinic Staff Only [place] [address] [place] [address] Immunization/Injecti on (Betamethasone/) 04/28/2024 2:15 PM CDT OB Encounter [facility] [place] [address] Yefri Mejia MD Care (32w 5d/) 04/28/2024 1:00 PM CDT Ancillary Procedure [facility] [place] [address] [address] 04/28/2024 Travel 04/26/2024 Orders Only [facility] Scanner 1 scan: (1-Ord) [place], RESULTS, 04/26/2024 04/26/2024 Orders Only [facility] Scanner 1 scan: (1-Ord) [place], MULTIPLE LABS , 04/26/2024 04/26/2024 Telephone [facility] [place] [facility] [address] Sherice Isaacs DO Blood Pressure 04/23/2024 Orders Only [facility] Scanner 1 scan: (1-Ord) [facility], MULTIPLE LAB RESULTS, 04/23/2024 04/21/2024 9:55 AM CDT OB Encounter [facility] [facility] [address] Yefri Mejia MD Care (31w 5d/) 04/21/2024 9:00 AM CDT Ancillary Procedure [facility] [address] [facility] [address] 04/21/2024 Travel 04/10/2024 3:15 PM CDT OB Encounter [facility] [facility] [address] Yefri Mejia MD Care (30w 1d) 04/10/2024 Travel 03/24/2024 9:05 AM CDT E-Visit [facility] [place] [address] [address] Yefri Mejia MD eVisit for Cough 03/20/2024 3:15 PM CDT OB Encounter [facility] [address] [facility] [address] Yefri Mejia MD Care (27w 1d/); Immunization/Injecti on 03/20/2024 2:45 PM CDT Orders Only [facility] [address] [place] [address] Lab, [place] [facility] 03/20/2024 Travel 03/12/2024 9:00 AM CDT - 03/12/2024 11:59 PM CDT Hospital Encounter [facility] [address] [place] [address] [place] [address] Tobias Spicer MD Supervision of high risk in second trimester (Primary Dx); Hypothyroidism (acquired); Hypothyroidism affecting in second trimester; Anxiety in in second trimester, antepartum; AMA (advanced maternal age) multigravida 35+, first trimester; Chronic hypertension affecting 03/12/2024 Travel 02/25/2024 8:40 AM CDT OB Encounter [facility] [address] [facility] [address] Yefri Mejia MD Care (23 wk 5 d/) 02/25/2024 Travel from Last 3 Months Immunizations Name [...] 05/11/2023 MMR 10/18/1999,03/27/1989 Meningococcal Vaccine (Menactra) 01/16/2006 RSV, Bivalent Vaccine Recons tituted (Abrysvo 120MCG/0.5mL) 04/28/2024 Tdap 03/20/2024,12/14/2021,01/06/2011 Varicella Vaccine 01/13/1997 Family History [...] Never Smokeless Tobacco: Never Tobacco Cessation:Counseling Given: No Alcohol Use Standard Drinks/Week Comments Not Currently 0 (1 standard drink = 0.6 oz pur e alcohol) occassional PHQ-2 Answer Date Recorded PHQ-2 TOTAL SCORE 1 06/08/2023 Social Connections Answer Date Recorded Do you often feel lonely or isolated from those around you? 0 06/08/2023 Financial Resource Strain Answer Date R ecorded Difficulty of Paying Living Expenses 3 06/08/2023 Difficulty of Paying Living Expenses Not on file 06/08/2023 Food Insecurity Answer Date Recorded Do you worry your food will run out before you are able to buy more? 1 06/08/2023 Transportation Needs Answer Date Record ed Does lack of transportation keep you from medica l appointments? 1 06/08/2023 Does lack of transportation keep you from work, meetings or getting things that you need? 1 06/08/2023 Housing Stability Answer Date Recorded What is your housing situation today? 1 06/08/2023 Estimated Date of Delivery Comme [...] Estimated Date of Delivery 10/24/2023 - Present (05/22/2024) 06/18/2024 (set by Eli Paige, RN on 11/15/2023 based on Last Menstrual [...] Progress Notes - OB Encounte r - 05/19/2024 - GA:35w5d 05/19/2024 - 35w5d - Yefri Mejia MD SUBJECTIVE: Sharri Bailon is a 38 y.o. female at 35+5 weeks. Home blood pressure readings 130s/80s, although this is typically on a second try. No concerns. See visit comments. OBJECTIVE: see OB vitals flow sheet BPP 8/8, vertex position Cervix high, thick ASSESSMENT : 35_5 weeks gestation Chronic HTN with superimposed preeclampsia PLAN: labor signs and symptoms reviewed with patient including pain, cramping, bleeding or leaking fluid. Reviewed signs/symptoms severe preeclampsia and BP >160/110 for which she should be seen right away. Weekly AST, ALT, CBC and creat today GBS completed RTC 1 weeks. Yefri Mejia MD .................... 05/19/2024 8:59 AM ICAL NURSING ASSISTANT Progress Notes - OB Encounte r - 05/12/2024 - GA:34w5d 05/12/2024 - 34w5d - Yefri Mejia MD SUBJECTIVE: Sharri Bailon is a 38 y.o. female at 34+5 weeks. Home blood pressure readings typically 140s/80s for first reading, then 130s/80s. No headache, no vision changes, no abdominal pain and swelling is improved. No other concerns. See visit comments. OBJECTIVE: see OB vitals flow sheet BPP 8/8, vertex presentation ASSESSMENT : 34+5 weeks gestation Chronic HTN with superimposed preeclampsia. hypothyroid PLAN: labor signs and symptoms reviewed with patient including pain, cramping, bleeding or leaking fluid. Continue weekly BPPs, labs and induction is scheduled for 05/28 at 37 weeks. Continue nifedipine at current dose, discussed signs/symptoms severe preeclampsia and discussed BP parameters. RTC 1 weeks. Yefri Mejia MD .................... 05/12/2024 10:48 AM ICAL NURSING ASSISTANT Progress Notes - OB Encounte r - 05/05/2024 - GA:33w5d 05/05/2024 - 33w5d - Yefri Mejia MD SUBJECTIVE: Sharri Bailon is a 38 y.o. female at 33+5 weeks. Patient diagnosed with gestational HTN, then preeclampsia since 04/21/24. She is on nifedipine 30 mg in AM, 60 mg in PM. Her home BP is 136/84 today; today's BP in clinic is 133/85. Home BP readings range from 125-140 systolic and 70-84 diastolic from the date range of 04/25-05/05. She denies THAO, swelling, or abdominal pain. OBJECTIVE: see OB vitals flow sheet BPP scheduled for this afternoon ASSESSMENT : 33+5 weeks gestation AMA Preeclampsia Hypothyroidism PLAN: labor signs and symptoms reviewed with patient including pain, cramping, bleeding or leaking fluid. Weekly BPP and preeclampsia labs. Discussed blood pressure goals and symptoms of severe features. COVID-19 booster recommended in June d/t having COVID-19 in middle of March. RTC 1 weeks. LIZZY Mitchell Student .................... 05/05/2024 9:02 AM The patient was seen in conjunction with Valencia Cortés PA-C. I agree with her documentation. I also saw and examined the patient. Yefri Mejia MD .................... 05/05/2024 8:58 AM Progress Notes - OB Encounte r - 04/28/2024 - GA:32w5d 04/28/2024 - 32w5d - Yefri Mejia MD SUBJECTIVE: Sharri Bailon is a 38 y.o. female at 32+5 weeks. Patient diagnosed with gestational HTN, then preeclampsia since our last visit. She is on nifedipine 30 mg in Am, 60 mg in evening. Her home blood pressure since yesterday is 130s/70-80s. She has not had any headaches, no swelling, no abdominal pain See visit comments. OBJECTIVE: see OB vitals flow sheet BPP 02/13 baby is vertex ASSESSMENT : 32+5 weeks gestation AMA Preeclampsia hypothyroidism PLAN: labor signs and symptoms reviewed with patient including pain, cramping, bleeding or leaking fluid. Weekly BPP and preeclampsia labs. Discussed blood pressure goals and symptoms of severe features. RSV vaccine today. Betamethasone today adn repeat in 24 hours. RTC 1 weeks. Yefri Mejia MD .................... 04/28/2024 1:43 PM Progress Notes - OB Encounte r [...] r - 03/20/2024 - GA:27w1d 03/20/2024 - 27w - Yefri Mejia MD SUBJECTIVE: Sharri Bailon is a 38 y.o. female at 27+1 weeks. Home blood pressure readings 120s/70s. Reviewed follow up recommendations from [facility]. No concerns. See visit comments. OBJECTIVE: [...] counter - 03/12/2024 - GA:26w0d 03/12/2024 - 26w0d - Sav Crystal MD [facility] OB FOLLOW UP PER [facility] (52375.0) 26w0d Estimated Date of Delivery: 06/18/24 38 y.o. [id number] Your patient had an ultrasound with [facility] on 03/12/24 . The report is ready and can be found in the Results review section of the [facility]. The Impression from the report is below. Problem list updated Patient Active Problem List Diagnosis Code Hypothyroidism (acquired) E03.9 Tinea versicolor B36.0 Pap smear for cervical cancer screening Z12.4 Psoriasis L40.9 Z34.90 [facility] High-risk supervision O09.90 Elderly primigravida in second trimester O09.512 Hypothyroidism affecting in second trimester O99.282, E03.9 Chronic hypertension affecting O10.919 Anxiety in in second trimester, antepartum O99.342, F41.9 US OB FOLLOW UP PER [facility] (71983.0) Referred By: YEFRI MEJIA MD Indications Code 26 weeks gestation of Z3A.26 Advanced maternal age, primigravida [address] Elevated BP without dx of HTN Low Risk NIPT +levothyroxine, bASA, sertraline Consult Dr. Spicer 01/28/24 01/28/24 [facility] Level II: EFW 47%/AC 28% Normal [...] patient. New government regulations related to the Century C[employer] act require that this note be released to the patient immediately, sometimes before the referring provider has been contacted. A portion of the information was presented verbally to the patient. The remainder is submitted as background for the referring provider, to be discussed as needed. Medical Decision Making: Moderate Level 36148 Moderate number/complexity of problems including an undiagnosed [...] Services Provided: Procedures Code FOLLOW UP GROWTH 42268.0 Thank you for allowing us to participate in her care Sav Crystal MD Maternal /Critical Care Medicine [facility] [phone] office [phone] Cell/text Progress Notes - OB Encounte r - 02/25/2024 - GA:23w5d 02/25/2024 - d - Yefri Mejia MD SUBJECTIVE: Sharri Balion is a 38 y.o. female at 23+5 weeks. No concerns. Reviewed ultrasound report and recommendations from [facility]. Home blood pressure 110-130s/70s. OBJECTIVE: see OB vitals flow sheet ASSESSMENT : 23+5 weeks gestation AMA Elevated blood pressure readings in clinic, with normal home blood pressure readings. Hypothyroid PLAN: labor signs and symptoms reviewed with patient including pain, cramping, bleeding or leaking fluid. Baseline pre-e labs done today. TSH/T4 level checked today and again in 4 weeks per [facility] RTC 4 weeks with diabetes and syphilis screening as well as TDaP. Continue home blood pressure readings. Follow up ultrasound with [facility] in 2 weeks as scheduled. Yefri Mejia MD .................... 02/25/2024 8:50 AM Progress Notes - OB Encounte r - 01/24/2024 - GA:19w1d 01/24/2024 - - Yefri Mejia MD SUBJECTIVE: Sharri [...] Supervision of normal first , antepartum Z34.00 MA COLLECTION VENOUS BLOOD VENIPUNCTURE 2. AMA (advanced maternal age) multigravida 35+, first trimester O09.521 DNA SCREEN SEND OUT MA COLLECTION VENOUS BLOOD VENIPUNCTURE Satisfactory exam. 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 [employer] Name of Partner or Father of [...] of estimated date of delivery: No Thalassemia (Azerbaijani, Austrian, Mediterranean, or background): MCV less than 80: No Neural tube defect (Meningomyelocele, Spina bifida, or Anencephaly): No Congenital heart defect: No Down syndrome: No Mukul-Sachs (Ashkenazi Pentecostal, Cajun, Khmer Lonoke): No Brenda disease (Ashkenazi Pentecostal): No Familial dysautonomia (Ashkenazi Pentecostal): No Sickle cell disease or trait (): No Hemophilia or other blood disorders: No Muscular dystrophy: No Cystic fibrosis: No Phillips's chorea: No Intellectual disability and/or autism: No [...] of Beginnings book and book inserts, discussed [id number] medications, and follow up. - Encouraged patient to call clinic at [phone] with any vaginal bleeding, fluid leaking from [...] Center 11/06/2023 4:00 PM NFLD ULTRASOUND NFLDMI NFLD 11/13/2023 8:[address] NFLDNU NF 11/26/2023 9:30 AM Yefri Mejia MD NFLDFP NFLD Eli Paige RN .................... 10/24/2023 1:52 PM Last Filed Vital Signs Vital Sign Reading Time Taken Comments Blood Pressure 143/91 05/19/2024 8:55 AM CLINICAL NURSING ASSISTANT Pulse 100 05/19/2024 8:45 AM CLINICAL NURSING ASSISTANT Temperature 36.3 ??C (97.4 ??F) 07/24/2023 9:08 AM CS T Respiratory Rate 18 06/30/2019 12:54 PM CLINICAL NURSING ASSISTANT Oxygen Saturation 98% 05/19/2024 8:45 AM CLINICAL NURSING ASSISTANT Inhaled Oxygen Concentration - - Weight 95.8 kg (211 lb 3.2 oz) 05/19/2024 8:45 A M CLINICAL NURSING ASSISTANT Height 161.3 cm (5' 3.5) 10/24/2023 9:19 AM CDT Body Mass Index 36.83 10/24/2023 9:19 AM CDT Plan of Treatment Upcoming Encounters Date Type Department Care Team (Late st Contact Info) Description 05/23/2024 8:25 AM CLINICAL NURSING ASSISTANT Office Visit [facility] [address] [facility] [place] [address] Yefri Mejia MD [address] [place] [address] [place] [address] 05/26/2024 8:15 AM CLINICAL NURSING ASSISTANT Ancillary Procedure [facility] [place] [address] 05/26/2024 9:05 AM CLINICAL NURSING ASSISTANT OB Encounter [facility] [address] [facility] [place] [address] Yefri Mejia [place] [address] 06/02/2024 8:15 AM CLINICAL NURSING ASSISTANT Ancillary Procedure [address] [place] [address] 06/02/2024 9:05 AM CLINICAL NURSING ASSISTANT OB Encounter [facility] [address] [facility] [address] Yefri Mejia MD [address] [place] [address] 06/09/2024 8:15 AM CLINICAL NURSING ASSISTANT Ancillary Procedure [facility] [address] [facility] [address] 06/09/2024 9:05 AM CLINICAL NURSING ASSISTANT OB Encounter [facility] [address] [place] [address] Yefri Mejia MD [address] [facility] [address] 06/16/2024 8:15 AM CLINICAL NURSING ASSISTANT Ancillary Procedure [facility] [address] [facility] [address] 06/16/2024 9:05 AM CLINICAL NURSING ASSISTANT OB Encounter [facility] [place] [address] Yefri Mejia MD [address] [facility] [address] Health Maintenance Due Date Last Done Comments COVID-19 vaccine series ( season) 2024 05/11/2023, 05/11/2023, 04/03/2022, Additional history exists Depression screening for age 12+ 06/08/2024 06/08/2023, 12/14/2021, 01/21/2021, Additional history exists BMI (ht and wt on same day) for age 18+ 10/23/2024 10/24/2023, 06/08/2023, 12/14/2021, Additional history exists Pap test for age 21-65 12/14/2026 , 12/14/2021, 11/28/2018 Tetanus booster 03/20/2034 03/20/2024, 06/02/2022, 01/06/2011 Hepatitis C screening for age 18-79 Completed 12/14/2021 HIV for age 15-65 Completed 10/24/2023, 06/08/2023 Influenza for age 9-49 Completed , 05/11/2023, 04/03/2022, Additional history exists Tdap Completed 03/20/2024, 0602/2022, 01/06/2011 RSV vaccine for adults or Completed 04/28/2024 Pneumococcal series for age 6-64 Aged Out No longer eligible based on patient's age to complete this topic Procedures Procedure Name Priority Date/Time Associated Diagnosis Comments VAGINAL/RECTAL OB STREP PCR Routine 05/19/2024 9:51 AM CLINICAL NURSING ASSISTANT Supervision of high risk in third trimester CBC WITH AUTO DIFFERENTIAL Routine 05/19/2024 9:42 AM CLINICAL NURSING ASSISTANT Pre-eclampsia in third trimester CREATININE Routine 05/19/2024 9:42 AM CLINICAL NURSING ASSISTANT Pre-eclampsia in third trimester ALT (SGPT) Routine 05/19/2024 9:42 AM CLINICAL NURSING ASSISTANT Pre-eclampsia in third trimester AST (SGOT) Routine 05/19/2024 9:42 AM CLINICAL NURSING ASSISTANT Pre-eclampsia in third trimester US OB BIOPHYSICAL PROFILE SINGLE WO NST Routine 05/19/2024 8:34 AM CLINICAL NURSING ASSISTANT Supervision of high risk in third trimester CBC WITH AUTO DIFFERENTIAL Routine 05/12/2024 11:09 AM CLINICAL NURSING ASSISTANT Chronic hypertension affecting Pre-eclampsia in third trimester CREATININE Routine 05/12/2024 11:09 AM CLINICAL NURSING ASSISTANT Chronic hypertension affecting Pre-eclampsia in third trimester ALT (SGPT) Routine 05/12/2024 11:09 AM CLINICAL NURSING ASSISTANT Chronic hypertension affecting Pre-eclampsia in third trimester AST (SGOT) Routine 05/12/2024 11:09 AM CLINICAL NURSING ASSISTANT Chronic hypertension affecting Pre-eclampsia in third trimester US OB BIOPHYSICAL PROFILE SINGLE WO NST Routine 05/12/2024 10:06 AM CLINICAL NURSING ASSISTANT Supervision of high risk in third trimester US OB BIOPHYSICAL PROFILE SINGLE WO NST Routine 05/05/2024 4:28 PM CDT Supervision of high risk in third trimester CBC WITH AUTO DIFFERENTIAL Routine 05/05/2024 9:51 AM CDT Pre-eclampsia in third trimester ALT (SGPT) Routine 05/05/2024 9:51 AM CDT Pre-eclampsia in third trimester AST (SGOT) Routine 05/05/2024 9:51 AM CDT Pre-eclampsia in third trimester CREATININE Routine 05/05/2024 9:51 AM CDT Pre-eclampsia in third trimester AST (SGOT) Routine 04/28/2024 2:49 PM CDT Pre-eclampsia in third trimester ALT (SGPT) Routine 04/28/2024 2:49 PM CDT Pre-eclampsia in third trimester CREATININE Routine 04/28/2024 2:49 PM CDT Pre-eclampsia in third trimester CBC WITH AUTO DIFFERENTIAL Routine 04/28/2024 2:49 PM CDT Pre-eclampsia in third trimester US OB BIOPHYSICAL PROFILE SINGLE WO NST Routine 04/28/2024 1:32 PM CDT Supervision of high risk in third trimester SCAN-LABORATORY REPORT 04/26/2024 12:00 AM CDT SCAN-LABORATORY REPORT 04/26/2024 12:00 AM CDT SCAN-LABORATORY REPORT 04/23/2024 12:00 AM CDT US OB FOLLOW UP ANY TRI SINGLE TA Routine 04/21/2024 9:29 AM CDT Supervision of high-risk , second trimester AMA (advanced maternal age) multigravida 35+, first trimester TREPONEMA PALLIDUM Routine 03/20/2024 3: 48 PM CDT Supervision of high-risk , second trimester GLUCOSE TOLERANCE, GESTATIONAL SCREEN 1H Routine 03/20/2024 3:48 PM CDT Supervision of high-risk , second [...] AM CDT Hypothyroidism affecting in second trimester ANTI HIV 1/2 Routine 10/24/2023 10:18 AM CDT , unspecified gestational age ANTI HCV Routine 12/14/2021 11:55 AM CDT Need for hepatitis C screening test HPV HIGH RISK Routine 12/14/2021 11:30 AM CDT Pap smear for cervical cancer screening from Last 3 Months or Most Recently Relevant to Health Maintenance Results * VAGINAL/RECTAL OB STREP PCR (05/19/2024 9:51 AM CLINICAL NURSING ASSISTANT) Vaginal/Rectal OB Strep B PCR Negative 05/21/2024 11:08 AM CLINICAL NURSING ASSISTANT [facility] TRAL [facility]OR[facility] Other (Vaginal/Rectal) Non-Blood / Unknown 05/19/2024 9:51 AM CLINICAL NURSING ASSISTANT 05/19/2024 9:51 AM CLINICAL NURSING ASSISTANT Yefri Mejia MD MICROBIOLOGY [facility] [address] [place] [address], * (ABNORMAL) CREATININE (05/19/2024 9:42 AM CLINICAL NURSING ASSISTANT) Only the most recent of5 resultswithin the time period is included. Pathologist [facility] CREATININE 0.49(L) 0.50 - 0.97 mg/dL [employer] [facility] EGFR 125 > OR = 60 mL/min/1.73 m2 [employer] [facility] Blood BLOOD SPECIMEN / Unknown 05/19/2024 9:42 AM CLINICAL NURSING ASSISTANT 05/19/2024 9:43 AM CLINICAL NURSING ASSISTANT Yefri Mejia MD CHEMISTRY [employer] [facility] [address] [place] [address], [employer] [facility] [address] [place] [address] * (ABNORMAL) CBC AND DIFFERENTIAL (05/19/2024 9:42 AM CLINICAL NURSING ASSISTANT) Only the most recent of4 resultswithin the time period is included. Pathologist [facility] WHITE BLOOD CELL COUNT 11.4(H) 3.8 - 10.8 Thousand/u L [facility] RED BLOOD CELL COUNT 4.66 3.80 - 5.10 Million/uL [facility] HEMOGLOBIN 14.2 11.7 - 15.5 g/dL [facility] HEMATOCRIT 42.9 35.0 - 45.0 % [facility] MCV 92.1 80.0 - 100.0 fL [facility] MCH 30.5 27.0 - 33.0 pg [facility] MCHC 33.1 32.0 - 36.0 g/dL [facility] Comment: For adults, a slight decrease in the calculated MCHC value (in the range of 30 to 32 g/dL) is most likely not clinically significant; however, it should be interpreted with caution in correlation with other red cell parameters and the patient's clinical condition. RDW 13.8 11.0 - 15.0 % [facility] PLATELET COUNT 229 140 - 400 Thousand/u L [facility] MPV 11.6 7.5 - 12.5 fL [facility] ABSOLUTE NEUTROPHILS 9,439(H) 1,500 - 7,800 cells/uL [facility] ABSOLUTE LYMPHOCYTES 1,265 850 - 3,900 cells/uL [facility] ABSOLUTE MONOCYTES 604 200 - 950 cells/uL [facility] ABSOLUTE EOSINOPHILS 46 15 - 500 cells/uL [facility] ABSOLUTE BASOPHILS 46 0 - 200 cells/uL [facility] NEUTROPHILS 82.8 % [facility] LYMPHOCYTES 11.1 % [facility] MONOCYTES 5.3 % [facility] Compa EOSINOPHILS 0.4 % [facility] BASOPHILS 0.4 % [facility] Blood BLOOD SPECIMEN / Unknown 05/19/2024 9:42 AM CLINICAL NURSING ASSISTANT 05/19/2024 9:43 AM CLINICAL NURSING ASSISTANT Yefri Mejia MD HEMATOLOGY [facility] [address] [place] [address], [place] [phone] [facility] [address] [place] [address] * ALT (SGPT) (05/19/2024 9:42 AM CLINICAL NURSING ASSISTANT) Only the most recent of5 resultswithin the time period is included. ALT 10 6 - 29 U/L [facility] Blood BLOOD SPECIMEN / Unknown 05/19/2024 9:42 AM CLINICAL NURSING ASSISTANT 05/19/2024 9:43 AM CLINICAL NURSING ASSISTANT Yefri Mejia MD CHEMISTRY [facility] [address] [place] [address], [place] [phone] [facility] [address] [place] [address] * AST (SGOT) (05/19/2024 9:42 AM CLINICAL NURSING ASSISTANT) Only the most recent of5 resultswithin the time period is included. AST 14 10 - 30 U/L [facility] Blood BLOOD SPECIMEN / Unknown 05/19/2024 9:42 AM CLINICAL NURSING ASSISTANT 05/19/2024 9:43 AM CLINICAL NURSING ASSISTANT Yefri Mejia MD CHEMISTRY [employer] [facility] [address] [place] [address], [employer] [address] [place] [address] * [place] OB BIOPHYSICAL PROFILE SINGLE WO NST (05/19/2024 8:34 AM CLINICAL NURSING ASSISTANT) Only the most recent of4 resultswithin the time period is included. Anatomical Region Laterality Modality Ultrasound 05/19/2024 12:3 9 PM CLINICAL NURSING ASSISTANT Impressions 05/19/2024 12:39 PM CLINICAL NURSING ASSISTANT 1. Living fetus in cephalic lie with gestational age of 35 weeks 5 days and EDC of 06/18/2024. 2. Biophysical profile score is 8/8. Dictated by Sina Griffith MD @ 05/19/2024 12:39:40 PM (Electronically Signed) Narrative 05/19/2024 12:39 PM CLINICAL NURSING ASSISTANT For Patients: ??As a result of the Century Cures Act, medical imaging exams and procedure reports are released immediately into your electronic medical record. ??You may view this report before your referring provider. ??If you have questions, please contact your health care provider. INDICATION: Hypertension TECHNIQUE: Limited transabdominal two-dimensional lewis-scale ultrasound examination. COMPARISON: None FINDINGS: There is a living fetus in cephalic lie with gestational age of 35 weeks 5 days and EDC of 06/18/2024. The biophysical profile score is 8/8 with component scores of 2 for breathing movements, 2 for gross body movements, 2 for tone and 2 for amniotic fluid/SDP. The heart rate is measured at 156 beats per minute and the rhythm appears regular. The amniotic fluid volume is within normal limits with single deepest pocket of 6.4 cm. The placenta is anterior and superior to the cervical os. There is no evidence of previa. Procedure Note Sina Griffith MD - 05/19/2024 For Patients: As a result of the Cures Act, medical imagingexams and procedure reports are released immediately into your electronicmedical record. You may view this report before your referring provider.If you have questions, please contact your health care provider. INDICATION: Hypertension TECHNIQUE: Limited transabdominal two-dimensional lewis-scale ultrasoundexamination. COMPARISON: None FINDINGS: There is a living fetus in cephalic lie with gestational age of 35 weeks 5days and EDC of 06/18/2024. The biophysical profile score is 8/8 with component scores of 2 for fetalbreathing movements, 2 for gross body movements, 2 for tone and 2for amniotic fluid/SDP. The heart rate is measured at 156 beats per minute and the rhythmappears regular. The amniotic fluid volume is within normal limits with single deepestpocket of 6.4 cm. The placenta is anterior and superior to the cervical os. There is noevidence of previa. IMPRESSION: 1. Living fetus in cephalic lie with gestational age of 35 weeks 5 daysand EDC of 06/18/2024. 2. Biophysical profile score is 8/8. Dictated by Sina Griffith MD @ 05/19/2024 12:39:40 PM (Electronically Signed) Yefri Mejia MD US * SCAN-LABORATORY REPORT (04/26/2024 12:00 AM CDT) Only the most recent of3 resultswithin the time period is included. Scanner OTHER * US OB FOLLOW UP [...] vertical pocket: 6.4 cm. The estimated weight [id number] which lies at the 17th %. On [...] ve Non-Reacti ve 03/21/2024 1:51 PM CDT [facility] Blood BLOOD SPECIMEN / Unknown Venipuncture / Unknown 03/20/2024 3:48 PM CDT 03/20/2024 3:51 PM CDT Yefri Mejia MD SEND OUTS [facility] [address] [place] [address], [place] * TSH (03/20/2024 3:48 PM CDT) Only the most recent of2 resultswithin the time period is included. TSH 1.64 0.27 - 4.20 uIU/mL 03/21/2024 1:51 PM CDT [facility] Blood BLOOD SPECIMEN / Unknown Venipuncture / Unknown 03/20/2024 3:48 PM CDT 03/20/2024 3:51 PM CDT Narrative [facility] - 03/21/2024 1:51 PM CDT In Adults, TSH values between 5.00 and 10.00 uIU/ml do not necessarily indicate the presence of Hypothyroidism. Correlation with clinical findings such as presence of goiter and/or Thyroperoxidase (TPO) Antibody may be helpful. For more information please refer to JUNIOR 2004; 291: 228-238. Yefri Mejia MD CHEMISTRY Performing Organization Address [facility]/ZIP Co de Phone Number [facility] [address] [address], [place] * GLUCOSE,GESTATIONAL (03/20/2024 3:48 PM CDT) GLUCOSE,GESTAT IONAL 128 70 - 139 mg/dL 03/20/2024 3:57 PM CDT [facility] Blood BLOOD SPECIMEN / Unknown Venipuncture / Unknown 03/20/2024 3:48 PM CDT 03/20/2024 3:51 PM CDT Yefri Mejia MD CHEMISTRY Performing Organization Address [facility] Co de Phone Number [facility] [address] [place] [address], * T4,FREE (03/20/2024 3:48 PM CDT) Only the most recent of2 resultswithin the time period is included. Pathologist [facility] T4,FREE 1.20 0.93 - 1.70 ng/dL 03/21/2024 1:51 PM CDT [facility] Blood BLOOD SPECIMEN / Unknown Venipuncture / Unknown 03/20/2024 3:48 PM CDT 03/20/2024 3:51 PM CDT Yefri Mejia MD CHEMISTRY Performing Organization Address [facility]/ZIP Co de Phone Number [facility] [address] [place] [address], [place] * PROTEIN/CREAT RATIO,URINE (02/25/2024 9:25 AM CDT) PROTEIN QUANT,RAND URINE 14 1 - 14 mg/dL 02/25/2024 7:01 PM CDT [facility] CREAT,RANDOM URINE 169.0 28.0 - 217.0 mg/dL 02/25/2024 7:01 PM CDT [facility] PROT/CREAT RATIO,UR 0.1 <0.2 02/25/2024 7:01 PM CDT [facility] Urine URINE SPECIMEN / Unknown Non-Blood / Unknown 02/25/2024 9:25 AM CDT 02/25/2024 9:25 AM CDT Yefri Mejia MD URINE [facility] [address] [place] [address], * (ABNORMAL) CBC WITH AUTO DIFFERENTIAL (02/25/2024 9:23 AM CDT) WHITE BLOOD COUNT 12.5(H) 4.5 - 11.0 thou/cu mm 02/25/2024 10:26 AM CDT [facility] RED BLOOD COUNT 4.20 4.00 - 5.20 mil/cu mm 02/25/2024 10:26 AM CDT [facility] HEMOGLOBIN 12.7 12.0 - 16.0 g/dL 02/25/2024 10:26 AM CDT [facility] HEMATOCRIT 37.0 33.0 - 51.0 % 02/25/2024 10:26 AM CDT [facility] MCV 88 80 - 100 fL 02/25/2024 10:26 AM CDT [facility] MCH 30.2 26.0 - 34.0 pg 02/25/2024 10:26 AM CDT [facility] MCHC 34.3 32.0 - 36.0 g/dL 02/25/2024 10:26 AM CDT [facility] RDW 13.7 11.5 - 15.5 % 02/25/2024 10:26 AM CDT [facility] PLATELET COUNT 242 140 - 440 thou/cu mm 02/25/2024 10:26 AM CDT [facility] MPV 9.6 6.5 - 11.0 fL 02/25/2024 10:26 AM CDT [facility] Blood BLOOD SPECIMEN / Unknown Venipuncture / Unknown 02/25/2024 9:23 AM CDT 02/25/2024 9:24 AM CDT Yefri Mejia MD HEMATOLOGY Performing Organization Address [facility] Co de Phone Number [facility] [address] [place] [address], * RED CELL MORPHOLOGY (02/25/2024 9:23 AM CDT) RBC COMMENT RBC morphology appears normal RBC morphology appears normal, RBC morphology within normal limits for newborns. 02/25/2024 10:26 AM CDT [facility] Blood BLOOD SPECIMEN / Unknown Venipuncture / Unknown 02/25/2024 9:23 AM CDT 02/25/2024 9:24 AM CDT Yefri Mejia MD HEMATOLOGY Performing Organization Address [facility] Co de Phone Number [facility] [address] [place] [address], [place] [phone] * PLATELET ESTIMATE (02/25/2024 9:23 AM CDT) PLATELET ESTIMATE Adequate Adequate, No estimate 02/25/2024 10:26 AM CDT [facility] Blood BLOOD SPECIMEN / Unknown Venipuncture / Unknown 02/25/2024 9:23 AM CDT 02/25/2024 9:24 AM CDT Yefri Mejia MD HEMATOLOGY Performing Organization Address [facility] Co de Phone Number [facility] [address] [place] [address], [place] [phone] * (ABNORMAL) MANUAL DIFFERENTIAL (02/25/2024 9:23 AM CDT) % NEUTROPHILS 83.0 % 02/25/2024 10:26 AM CDT [facility] % LYMPHOCYTES 9.0 % 02/25/2024 10:26 AM CDT [facility] % MONOCYTES 5.0 % 02/25/2024 10:26 AM CDT [facility] % EOSINOPHILS 3.0 % 02/25/2024 10:26 AM CDT [facility] % BASOPHILS 0.0 % 02/25/2024 10:26 AM CDT [facility] NEUTROPHILS ABSOLUTE 10.4(H) 1.7 - 7.0 thou/cu mm 02/25/2024 10:26 AM CDT [facility] LYMPHOCYTES ABSOLUTE 1.1 0.9 - 2.9 thou/cu mm 02/25/2024 10:26 AM CDT [facility] MONOCYTES ABSOLUTE 0.6 <0.9 thou/cu mm 02/25/2024 10:26 AM CDT [facility] EOSINOPHILS ABSOLUTE 0.4 <0.5 thou/cu mm 02/25/2024 10:26 AM CDT [facility] BASOPHILS ABSOLUTE 0.0 <0.3 thou/cu mm 02/25/2024 10:26 AM CDT [facility] Blood BLOOD SPECIMEN / Unknown Venipuncture / Unknown 02/25/2024 9:23 AM CDT 02/25/2024 9:24 AM CDT Yefri Mejia MD HEMATOLOGY Performing Organization Address City/State/[facility] Co de Phone Number [facility] [address] [place] [address], * ANTI HIV 1/2 (10/24/2023 10:18 AM CDT) Pathologist [facility] HIV-1/HIV-2 SCREEN Non-Reacti ve Non-Reacti ve 10/24/2023 5:15 PM CDT [facility] Comment:HIV-1 p24 and HIV-1/ HIV-2 Ab Not Detected. Blood BLOOD SPECIMEN / Unknown Butterfly / Unknown 10/24/2023 10:18 AM CDT 10/24/2023 10:19 AM CDT Yefri Mejia MD SEND OUTS [facility] [address] [place] [address], * ANTI HCV (12/14/2021 11:55 AM CDT) HEPATITIS C ANTIBODY Non-React binu Non-React binu 12/15/2021 12:24 AM CDT [facility] Comment:Antibodies to HCV no t detected; does not exclude the possibility of exposure to HCV. Blood BLOOD SPECIMEN / Unknown Venipuncture / Unknown 12/14/2021 11:55 AM CDT 12/14/2021 11:55 AM CDT Rhea BALL SEND OUTS [facility] [address] [place] [address], * HPV HIGH RISK (12/14/2021 11:30 AM CDT) TYPE 16 Negative Negative 12/16/2021 2:51 PM CDT [facility] TYPE 18 Negative Negative 12/16/2021 2:51 PM CDT [facility] OTHER HIGH RISK TYPES Negative Negative 12/16/2021 2:51 PM CDT [facility] Other (Cervical) Non-Blood / Unknown 12/14/2021 11:30 AM CDT 12/15/2021 8:23 AM CDT Narrative [facility] - 12/16/2021 2:51 PM CDT HPV types 16, 18, 31, 33, 35, 39, 45, 51, 52, 56, 58, 59, 66 and 68 DNA were undetectable or below the pre-set threshold. Methodology: Deanna Curtis 4800 HPV Test Rhea BALL MICROBIOLOGY [facility] 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
[2024-05-22] MEDS: NIFEdipine 30 MG TAB.ER.24 60 MG PO (18:49)
[2024-05-22 19:00] LABS: Hematocrit 40.1 % (33.0-51.0); Hemoglobin* 13.4 gm/dL (12.0-16.0); Mean Corpuscular HGB Conc 33 gm/dL (32-36); Mean Corpuscular Hemoglobin 30 pg (26-34); Mean Corpuscular Volume 89 fL (80-100); Platelet Count* 208 K/uL (140-440); Red Blood Count 4.53 m/uL (4.00-5.20)
[2024-05-22 19:01] LABS: Slide Review Reflex No
[2024-05-22 19:25] LABS: Creatinine* 0.4 mg/dL (0.5-1.5); Estimated Glomerular Filt Rate 131 ml/min
[2024-05-22 19:26] LABS: Alanine Aminotransferase* 16 U/L (4-35); Aspartate Amino Transferase* 23 U/L (12-35); Blood Urea Nitrogen* 9 mg/dL (5-24)
--- NOTE | 2024-05-22 19:52 | PC.OBNST ---
NST Note NST Note Start: 05/22/24 19:50 Freq: Status: Active Protocol: Document 05/22/24 19:48 [facility] (Rec: 05/22/24 19:52 [facility] Desktop) NST Note 1 Para (# of births) 0 EDC 06/18/24 Gestational Age In Weeks & Days 36 Weeks & 1 Days High Risk Factors High Blood Pressure - Preexisting Patient Presented with Complaint(s) of Other Other Complaints Elevated BP at home Reactive Yes Appropriate for Gestational Age Yes PEDRO Barreto RN Date 05/22/24 Reactive Yes Appropriate for Gestational Age Yes PEDRO Khalil RN Date 05/22/24 OB NST charge Yes Complete NST Note via Write Note Yes The provider's electronic signature indicates the NST is reactive/appropriate for gestational age. *Note to provider: If an addendum is required, open the patient's chart and click on the note under the Nurse/Allied Health tab.
== END 2024-05-22 19:48 | disposition home or self-care (01) ==
LOC: OB OUT 18:10 → OB 18:16
PROVIDERS: PCP Family Medicine; Visit Provider Family Medicine
DX: O10.913 Unspecified pre-existing hypertension complicating pregnancy, third trimester (principal); R51.9 Headache, unspecified; Z3A.32 32 weeks gestation of pregnancy
CPT/HCPCS: 36415; 59025; 82565; 84450; 84460; 84520; 85027; G0463; A9270

== ENCOUNTER 2024-05-27 18:03 | Inpatient (IN) | payer OTHER, SELFPAY ==
[2024-05-27] VITALS (9 sets, daily range): BP systolic 131–152; BP diastolic 82–92; PULSE 73–90; RESP 18; TEMP 36.8–36.9; O2SAT 95–97; BMI 38.5
--- OUTSIDE RECORDS SUMMARY | 2024-05-27 18:06 | XMS_ITS | Clinical Summary ---
Author Organization [employer] [facility] Address [place], [place] [address] Care Team Providers Care Hook And Eye Attacher Name Role Phone Michael Coleman Unavailable Yefri Mejia MD Unavailable [phone] Yefri Mejia MD Primary Care Provider Allergies No known active allergies Medications Medication Sig Dispensed Refills Start Date End Date Status ketoconazole 2% shampoo (NIZORAL) 2 % shampooIndications :Tinea versicolor Put on your rash daily and leave on for 5 minutes before washing off 120 mL 5 12/14/2021 Active clobetasol 0.05% (TEMOVATE 0.05% OINTMENT) 0.05 % ointmentIndication s:Psoriasis Apply topically to affected area(s) 2 times daily. 60 g 2 12/14/2021 Active calcipotriene 0.005% (DOVONEX) 0.005 % ointment FOR MAINTENANCE, APPLY TO AFFECTED AREAS DAILY. 02/17/2022 Active sertraline (ZOLOFT) 25 mg tabletIndications: Generalized anxiety disorder Take 1 Tablet (25 mg) by mouth every morning. Take with 50mg for total of 75mg. 90 Tablet 3 06/08/2023 Active vit no.124/iron/folic ( VITAMIN ORAL) Take by mouth. Active levothyroxine (SYNTHROID) 150 mcg tabletIndications: Hypothyroidism (acquired) Take 1 Tablet (150 mcg) by mouth before breakfast. 90 Tablet 3 10/25/2023 Active aspirin 81 mg cap Take 81 mg by mouth once daily. Active durable medical equipment (DME)Indications:E levated blood pressure reading without diagnosis of hypertension,Super vision of normal first , antepartum Automated blood pressure cuff for measuring blood pressure at home. Length of need 99 1 Each 12/24/2023 Active sertraline (ZOLOFT) 50 mg tabletIndications: Generalized anxiety disorder Take 1 Tablet (50 mg) by mouth once daily in the morning. Take with 25 mg tab for TDD 75 mg 90 Tablet 3 01/29/2024 Active Breast Pump PurchaseIndication s:Care and examination of lactating mother Electric breast pump for home use. Gestational age at delivery: 40 weeks. Reason for need: return to work. Length of need: 99 months (lifetime use) 1 Each 02/27/2024 Active NIFEdipine (PROCARDIA XL) 60 mg extended-release tabletIndications: Gestational hypertension, third trimester Take 1 Tablet (60 mg) by mouth two times daily. 180 Tablet 05/19/2024 Active labetaloL (TRANDATE) 100 mg tabletIndications: Chronic hypertension affecting ,Pre-ecla mpsia in third trimester Take 2 Tablets (200 mg) by mouth two times daily. 05/26/2024 Active NIFEdipine (PROCARDIA XL) 60 mg extended-release tabletIndications: Gestational hypertension, third trimester Take 1 Tablet (60 mg) by mouth once daily before a meal. 60 Tablet 04/25/2024 Discontinue d(Reorder (E-cancel not sent)) NIFEdipine (PROCARDIA XL) 30 mg extended-release tabletIndications: Pre-eclampsia in third trimester Take 1 Tablet (30 mg) by mouth once daily before a meal. 04/28/2024 4 Discontinue d(*Medicati on adjustment) labetaloL (TRANDATE) 100 mg tabletIndications: Chronic hypertension affecting ,Pre-ecla mpsia in third trimester Take 1 Tablet (100 mg) by mouth two times daily. 60 Tablet 05/23/2024 4 Discontinue d(Reorder (E-cancel not sent)) Hospital, Clinic, or Other Facility Administered Medication Ordered Dose Route Frequency Start Date End Date Status betamethasone acet,sod phos 12 mg injection (CELESTONE SOLUSPAN)Indications:Pre-ec lampsia in third trimester 12 mg IM Q 24H 04/28/2024 4 Ended Active Problems Problem Noted Date Diagnosed Date Anxiety in in second trimester, antepa rtum 03/10/2024 Overview (03/10/2024): [facility] (Dr. Spicer with initial Level II [...] in second tri mester 01/28/2024 Overview (03/10/2024): [facility] Dr. Spicer (With initial Level II [...] LOCATION/FAX #: Yefri Mejia MD - [facility] Primary provider approves scheduling of recommended ultrasounds/testing: Yes [facility] ULTRASOUND/TESTING PATIENT Support person name: Tobias ULTRASOUND [...] Encounters Date Type Department Care Team Description 05/26/2024 9:05 AM MANAGER TRAFFIC OB Encounter [facility] [address] [facility] [address] Yefri Mejia MD Care (36 weeks 5 days) 05/26/2024 8:15 AM MANAGER TRAFFIC Ancillary Procedure [facility] [address] [place] [address] Arrived 05/26/2024 Travel 05/23/2024 8:25 AM MANAGER TRAFFIC OB Encounter [facility] [address] [place] [address] Yefri Mejia MD Care (Elevated BP Went to L&D last night) 05/23/2024 Travel 05/19/2024 9:05 AM MANAGER TRAFFIC OB Encounter [facility] [address] [place] [address] Yefri Mejia MD Care (35 weeks 5 days ) 05/19/2024 8:15 AM MANAGER TRAFFIC Ancillary Procedure [facility] [address] [place] [address] 05/19/2024 Travel 05/16/2024 Refill [facility] [address] [place] [address] Ashleigh Gutierrez MD Refill Request (Nifedipine) 05/12/2024 10:45 AM MANAGER TRAFFIC OB Encounter [facility] [address] [facility] [address] Yefri Mejia MD Care (34w 5d/) 05/12/2024 9:45 AM MANAGER TRAFFIC Ancillary Procedure [facility] [address] [facility] [address] 05/12/2024 Travel 05/05/2024 4:00 PM CDT Ancillary Procedure [facility] [address] [facility] [address] 05/05/2024 9:05 AM CDT OB Encounter [facility] [address] [place] [address] Yefri Mejia MD Care (33w 5d/) 05/05/2024 Travel 04/29/2024 2:20 PM CDT Nurse/Clinic Staff Only [facility] [address] [place] [address] Immunization/Injecti on (Betamethasone/) 04/28/2024 2:15 PM CDT OB Encounter [facility] [address] [facility] [address] Yefri Mejia MD Care (32w 5d/) 04/28/2024 1:00 PM CDT Ancillary Procedure [facility] [address] [place] [address] 04/28/2024 Travel 04/26/2024 Orders Only [facility] Scanner 1 scan: (1-Ord) [facility] RESULTS, 04/26/2024 04/26/2024 Orders Only [facility] Scanner 1 scan: (1-Ord) [facility] MULTIPLE LABS , 04/26/2024 04/26/2024 Telephone [facility] [address] [place] [address] Sherice Isaacs DO Blood Pressure 04/23/2024 Orders Only [facility] Scanner 1 scan: (1-Ord) [facility], MULTIPLE LAB RESULTS, 04/23/2024 04/21/2024 9:55 AM CDT OB Encounter [facility] [address] [facility] [address] Yefri Mejia MD Care (31w 5d/) 04/21/2024 9:00 AM CDT Ancillary Procedure [facility] [address] [place] [address] 04/21/2024 Travel 04/10/2024 3:15 PM CDT OB Encounter [facility] [address] [facility] [address] Yefri Mejia MD Care (30w 1d) 04/10/2024 Travel 03/24/2024 9:05 AM CDT E-Visit [facility] [address] [facility] [address] Yefri Mejia MD eVisit for Cough 03/20/2024 3:15 PM CDT OB Encounter [facility] [address] [facility] [address] Yefri Mejia MD Care (27w 1d/); Immunization/Injecti on 03/20/2024 2:45 PM CDT Orders Only [address] [place] [address] Lab, [place] [facility] 03/20/2024 Travel 03/12/2024 9:00 AM CDT - 03/12/2024 11:59 PM CDT Hospital Encounter [facility] [address] [facility] [place] [address] Tobias Spicer MD Supervision of high risk in second trimester (Primary Dx); Hypothyroidism (acquired); Hypothyroidism affecting in second trimester; Anxiety in in second trimester, antepartum; AMA (advanced maternal age) multigravida 35+, first trimester; Chronic hypertension affecting 03/12/2024 Travel 02/25/2024 8:40 AM CDT OB Encounter [facility] [address] [place], [place] [id number] Yefri Mejia MD Care (23 wk 5 [...] Estimated Date of Delivery 10/24/2023 - Present (05/27/2024) 06/18/2024 (set by Eli Paige RN on [...] Progress Notes - OB Encounte r - 05/26/2024 - GA:36w5d 05/26/2024 - 36w5d - Yefri Mejia MD SUBJECTIVE: Sharri Bailon is a 38 y.o. female at 36+5 weeks. Home blood pressures, 130-140s/80-90s. No headache, vision changes, increased swelling or abdominal pain. No concerns. See visit comments. OBJECTIVE: see OB vitals flow sheet BPP:02/13, cephalic ASSESSMENT : 36+5 weeks gestation AMA Chronic HTN with superimposed preeclampsia. Hypothyroidism. PLAN: Labor signs and symptoms reviewed with patient including painful regular contractions or leaking fluid. Otherwise plan for induction tomorrow night for cervical ripening. Increase labetalol to 200 mg twice daily in addition to nifedipine 60 mg twice daily. Pre-e labs done today Yefri Mejia MD .................... 05/26/2024 8:44 AM GER TRAFFIC Progress Notes - OB Encounte r - 05/23/2024 - GA:36w2d 05/23/2024 - 36w2d - Yefri Mejia MD SUBJECTIVE: Sharri Bailon is a 38 y.o. female at 36+2 weeks. Seen today for elevated blood pressure over the last 2 days. Had one severe range blood pressure yesterday which brought her to L&D, this was prior to taking her second dose of nifedipine. Labs and repeat blood pressures were appropriate. She reports no headache, vision changes, RUQ pain or swelling. See visit comments. OBJECTIVE: see OB vitals flow sheet ASSESSMENT : 36+2 weeks gestation with chronic htn and superimposed preeclampsia PLAN: Labor signs and symptoms reviewed with patient including painful regular contractions or leaking fluid. Start labetalol 100 twice daily in addition to nifedipine Signs/symptoms severe features and severe range blood pressure reviewed. Follow up on Saturday 05/26 as scheduled prior to induction 05/28 (37 weeks) Yefri Mejia MD .................... 05/23/2024 8:38 AM GER TRAFFIC Progress Notes - OB Encounte r - [...] Yefri Mejia MD .................... 05/19/2024 8:59 AM GER TRAFFIC Progress Notes - OB Encounte r - [...] OBJECTIVE: see OB vitals flow sheet BPP 02/13, vertex presentation ASSESSMENT : 34+5 weeks gestation [...] Yefri Mejia MD .................... 05/12/2024 10:48 AM GER TRAFFIC Progress Notes - OB Encounte r - [...] r - 04/28/2024 - GA:32w5d 04/28/2024 - 32wd - Yefri Mejia MD SUBJECTIVE: Sharri Bailon [...] 04/21/2024 9:59 AM [facility] - GA:30w1d 04/10/2024 - [...] 04/10/2024 3:21 PM [facility] 03/20/2024 - GA:27w1d 03/20/2024 - - Yefri Mejia MD SUBJECTIVE: Sharri Bailon is a 38 y.o. female at 27+1 weeks. Home blood pressure readings 120s/70s. Reviewed follow up recommendations from [facility]. No concerns. See visit comments. OBJECTIVE: [...] 03/12/2024 - 26w0d - Sav Crystal MD MPP/ US OB FOLLOW UP PER [facility] (44291.0) 26w0d Estimated Date of Delivery: 06/18/24 38 y.o. [id number] Your patient had an ultrasound with [facility] on 03/12/24 . The report is ready and can be found in the Results review section of the [facility] chart. The Impression from the report is below. Problem list updated Patient Active Problem List Diagnosis Code Hypothyroidism (acquired) E03.9 Tinea versicolor B36.0 Pap smear for cervical cancer screening Z12.4 Psoriasis L40.9 Z34.90 [facility] High-risk supervision O09.90 Elderly primigravida in second trimester O09.512 Hypothyroidism affecting in second trimester O99.282, E03.9 Chronic hypertension affecting O10.919 Anxiety in in second trimester, antepartum O99.342, F41.9 US OB FOLLOW UP PER [facility] (92142.0) Referred By: YEFRI MEJIA MD Indications Code 26 weeks gestation of Z3A.26 Advanced maternal age, primigravida [address] Elevated BP without dx of HTN Low Risk NIPT +levothyroxine, bASA, sertraline Consult Dr. Spicer 01/28/24 01/28/24 MPP Level II: EFW 47%/AC 28% Normal anatomy/limited heart views 9/4/24 MPP f/u: EFW 814 grams (24%/AC 20%) [...] as needed. Medical Decision Making: Moderate Level 11855 Moderate number/complexity of problems including an undiagnosed [...] Services Provided: Procedures Code FOLLOW UP GROWTH 89438.0 Thank you for allowing us to participate in her care Sav Crystal MD Maternal /Critical Care Medicine [facility] [phone] office [phone] Cell/text Progress Notes - OB Encounte r - 02/25/2024 - GA:23w5d 02/25/2024 - w5d - Yefri Mejia MD SUBJECTIVE: Sharri Bailon is a 38 y.o. female at 23+5 weeks. No concerns. Reviewed ultrasound report and recommendations from [facility]. Home blood pressure 110-130s/70s. OBJECTIVE: see OB vitals flow sheet ASSESSMENT : 23+5 weeks gestation AMA Elevated blood pressure readings in clinic, with normal home blood pressure readings. Hypothyroid PLAN: labor signs and symptoms reviewed with patient including pain, cramping, bleeding or leaking fluid. Baseline pre-e labs done today. TSH/T4 level checked today and again in 4 weeks per [facility] RTC 4 weeks with diabetes and syphilis screening as well as TDaP. Continue home blood pressure readings. Follow up ultrasound with [facility] in 2 weeks as scheduled. Yefri Mejia MD .................... 02/25/2024 8:50 AM Progress Notes - OB Encounte r - 01/24/2024 - GA:19w1d 01/24/2024 - w1d - Yefri Mejia MD SUBJECTIVE: Sharri Bailon [...] 01/24/2024 4:00 PM [facility] - GA:14w5d 12/24/2023 - 14w5d - Yefri Mejai MD SUBJECTIVE: Sharri Bailon is a 38 [...] 12/24/2023 8:22 AM [facility] 11/26/[facility] - GA:10w5d 11/26/2023 - [...] have spotting 10/08/23 SpO2 99% BMI 33.69 kg/m General Appearance: Alert, appropriate appearance for age. [...] Supervision of normal first , antepartum Z34.00 CO COLLECTION VENOUS BLOOD VENIPUNCTURE 2. AMA (advanced maternal age) multigravida 35+, first trimester O09.521 DNA SCREEN SEND OUT CO COLLECTION VENOUS BLOOD VENIPUNCTURE Satisfactory exam. Demonstrates appropriate and health-seeking behaviors toward her . Verbalizes good understanding of care schedule and the importance of coming to each visit as scheduled. Start/continue vitamins. Reviewed labs. She was encouraged to call the office with any questions or concerns. Body mass index is 33.69 kg/m . 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 Name of Partner or Father of [...] of estimated date of delivery: No Thalassemia (Cape Verdean, Tuvaluan, Mediterranean, or background): MCV less than 80: No Neural tube defect (Meningomyelocele, Spina bifida, or Anencephaly): No Congenital heart defect: No Down syndrome: No Mukul-Sachs (Ashkenazi Evangelical, Cajun, Bulgarian Payette): No Brenda disease (Ashkenazi Evangelical): No Familial dysautonomia (Ashkenazi Evangelical): No Sickle cell disease or trait (): No Hemophilia or other blood disorders: No Muscular dystrophy: No Cystic fibrosis: No Jim Wells's chorea: No Intellectual disability and/or autism: No [...] of Beginnings book and book inserts, discussed [id number] medications, and follow up. - Encouraged patient to call clinic at [phone] with any vaginal bleeding, fluid leaking from [...] Time Provider Department Center 11/06/2023 4:00 PM NF ULTRASOUND [facility] 11/13/2023 8:[address] 11/26/2023 9:30 AM [facility] Eli Paige RN .................... 10/24/2023 1:52 PM Last Filed Vital Signs Vital Sign Reading Time Taken Comments Blood Pressure 142/90 05/26/2024 8:42 AM MANAGER TRAFFIC Pulse 105 05/26/2024 8:42 AM MANAGER TRAFFIC Temperature 36.3 C (97.4 F) 07/24/2023 9:08 AM MANAGER TRAFFIC Respiratory Rate 18 06/30/2019 12:54 PM MANAGER TRAFFIC Oxygen Saturation 98% 05/26/2024 8:42 AM MANAGER TRAFFIC Inhaled Oxygen Concentration - - Weight 97.5 kg (215 lb) 05/26/2024 8:42 AM MANAGER TRAFFIC Height 161.3 cm (5' 3.5) 10/24/2023 9:19 AM CDT Body Mass Index 37.49 10/24/2023 9:19 AM CDT Plan of Treatment Upcoming Encounters Date Type Department Care Team (Late st Contact Info) Description 06/02/2024 8:15 AM MANAGER TRAFFIC Ancillary Procedure [facility] [address] [address] 06/02/2024 9:05 AM MANAGER TRAFFIC OB Encounter [facility] [address] Yefri Mejia MD [address] [facility] [address] 06/09/2024 8:15 AM MANAGER TRAFFIC Ancillary Procedure [facility] [address] [facility] [address] 06/09/2024 9:05 AM MANAGER TRAFFIC OB Encounter [facility] [address] [place] [address] Yefri Mejia MD [address] [facility] [address] 06/16/2024 8:15 AM MANAGER TRAFFIC Ancillary Procedure [facility] [address] [facility] [address] 06/16/2024 9:05 AM MANAGER TRAFFIC OB Encounter [facility] [address] [place] [address] Yefri Mejia MD [address] [place] [address] Health Maintenance Due Date Last Done Comments COVID-19 vaccine series ( season) 2024 05/11/2023, 05/11/2023, 04/03/2022, Additional history exists Depression screening for age 12+ 06/08/2024 06/08/2023, 12/14/2021, 01/21/2021, Additional history exists BMI (ht and wt on same day) for age 18+ 10/23/2024 10/24/2023, 06/08/2023, 12/14/2021, Additional history exists Pap test for age 21-65 12/14/2026 2, 12/14/2021, 11/28/2018 Tetanus booster 03/20/2034 03/20/2024, 0 02/2022, 01/06/2011 Hepatitis C screening for age 18-79 Completed 12/14/2021 HIV for age 15-65 Completed 10/24/2023, 06/08/2023 Influenza for age 9-49 Completed 4, 05/11/2023, 04/03/2022, Additional history exists Tdap Completed 03/20/2024, 0 02/2022, 01/06/2011 RSV vaccine for adults or Completed 04/28/2024 Pneumococcal series for age 6-64 Aged Out No longer eligible based on patient's age to complete this topic Procedures Procedure Name Priority Date/Time Associated Diagnosis Comments AST (SGOT) Routine 05/26/2024 9:16 AM MANAGER TRAFFIC Pre-eclampsia in third trimester ALT (SGPT) Routine 05/26/2024 9:16 AM MANAGER TRAFFIC Pre-eclampsia in third trimester CBC WITH AUTO DIFFERENTIAL Routine 05/26/2024 9:16 AM MANAGER TRAFFIC Pre-eclampsia in third trimester CREATININE Routine 05/26/2024 9:16 AM MANAGER TRAFFIC Pre-eclampsia in third trimester US OB BIOPHYSICAL PROFILE SINGLE WO NST Routine 05/26/2024 8:38 AM MANAGER TRAFFIC Supervision of high risk in third trimester VAGINAL/RECTAL OB STREP PCR Routine 05/19/2024 9:51 AM MANAGER TRAFFIC Supervision of high risk in third trimester CBC WITH AUTO DIFFERENTIAL Routine 05/19/2024 9:42 AM MANAGER TRAFFIC Pre-eclampsia in third trimester CREATININE Routine 05/19/2024 9:42 AM MANAGER TRAFFIC Pre-eclampsia in third trimester ALT (SGPT) Routine 05/19/2024 9:42 AM MANAGER TRAFFIC Pre-eclampsia in third trimester AST (SGOT) Routine 05/19/2024 9:42 AM MANAGER TRAFFIC Pre-eclampsia in third trimester US OB BIOPHYSICAL PROFILE SINGLE WO NST Routine 05/19/2024 8:34 AM MANAGER TRAFFIC Supervision of high risk in third trimester CBC WITH AUTO DIFFERENTIAL Routine 05/12/2024 11:09 AM MANAGER TRAFFIC Chronic hypertension affecting Pre-eclampsia in third trimester CREATININE Routine 05/12/2024 11:09 AM MANAGER TRAFFIC Chronic hypertension affecting Pre-eclampsia in third trimester ALT (SGPT) Routine 05/12/2024 11:09 AM MANAGER TRAFFIC Chronic hypertension affecting Pre-eclampsia in third trimester AST (SGOT) Routine 05/12/2024 11:09 AM MANAGER TRAFFIC Chronic hypertension affecting Pre-eclampsia in third trimester US OB BIOPHYSICAL PROFILE SINGLE WO NST Routine 05/12/2024 10:06 AM MANAGER TRAFFIC Supervision of high risk in third trimester [...] Recently Relevant to Health Maintenance Results * CREATININE (05/26/2024 9:16 AM MANAGER TRAFFIC) Only the most recent of6 resultswithin the time period is included. CREATININE 0.51 0.50 - 0.97 mg/dL [facility] EGFR 124 > OR = 60 mL/min/1.73 m2 [facility] Blood BLOOD SPECIMEN / Unknown 05/26/2024 9:16 AM MANAGER TRAFFIC 05/26/2024 9:17 AM MANAGER TRAFFIC Yerfi Mejia MD CHEMISTRY [facility] [address] [place] [address], [facility] [address] [place] [address] * (ABNORMAL) CBC AND DIFFERENTIAL (05/26/2024 9:16 AM MANAGER TRAFFIC) Only the most recent of5 resultswithin the time period is included. WHITE BLOOD CELL COUNT 11.2(H) 3.8 - 10.8 Thousand/u L [facility] RED BLOOD CELL COUNT 4.56 3.80 - 5.10 Million/uL [facility] HEMOGLOBIN 13.8 11.7 - 15.5 g/dL [facility] HEMATOCRIT 41.6 35.0 - 45.0 % [facility] MCV 91.2 80.0 - 100.0 fL [facility] MCH 30.3 27.0 - 33.0 pg [facility] MCHC 33.2 32.0 - 36.0 g/dL [facility] Comment: For adults, a slight decrease in the calculated MCHC value (in the range of 30 to 32 g/dL) is most likely not clinically significant; however, it should be interpreted with caution in correlation with other red cell parameters and the patient's clinical condition. RDW 13.5 11.0 - 15.0 % [facility] PLATELET COUNT 215 140 - 400 Thousand/u L [facility] MPV 11.5 7.5 - 12.5 fL [facility] ABSOLUTE NEUTROPHILS 9,173(H) 1,500 - 7,800 cells/uL [facility] ABSOLUTE LYMPHOCYTES 1,254 850 - 3,900 cells/uL [facility] ABSOLUTE MONOCYTES 661 200 - 950 cells/uL [facility] ABSOLUTE EOSINOPHILS 67 15 - 500 cells/uL [facility] ABSOLUTE BASOPHILS 45 0 - 200 cells/uL [facility] NEUTROPHILS 81.9 % [facility] LYMPHOCYTES 11.2 % [facility] MONOCYTES 5.9 % [facility] EOSINOPHILS 0.6 % [facility] BASOPHILS 0.4 % [facility] Blood BLOOD SPECIMEN / Unknown 05/26/2024 9:16 AM MANAGER TRAFFIC 05/26/2024 9:17 AM MANAGER TRAFFIC Yefri Mejia MD HEMATOLOGY [facility] [address] [place] [address], [facility] [address] [place] [address] * ALT (SGPT) (05/26/2024 9:16 AM MANAGER TRAFFIC) Only the most recent of6 resultswithin the time period is included. ALT 18 6 - 29 U/L [facility] Blood BLOOD SPECIMEN / Unknown 05/26/2024 9:16 AM MANAGER TRAFFIC 05/26/2024 9:17 AM MANAGER TRAFFIC Yefri Mejia MD CHEMISTRY Performing Organization Address [facility]/ZIP Co de Phone Number [facility] [address] [place] [address], [place] [phone] [facility] [address] [facility] [place] [address] * AST (SGOT) (05/26/2024 9:16 AM MANAGER TRAFFIC) Only the most recent of6 resultswithin the time period is included. AST 20 10 - 30 U/L [facility] Blood BLOOD SPECIMEN / Unknown 05/26/2024 9:16 AM MANAGER TRAFFIC 05/26/2024 9:17 AM MANAGER TRAFFIC Yefri Mejia MD CHEMISTRY Performing Organization Address [facility]/ZIP Co de Phone Number [facility] [address] [place] [address], [place] [phone] [facility] [address] [place] [address] * US OB BIOPHYSICAL PROFILE SINGLE WO NST (05/26/2024 8:38 AM MANAGER TRAFFIC) Only the most recent of5 resultswithin the time period is included. Anatomical Region Laterality Modality Ultrasound 05/26/2024 10:2 4 AM MANAGER TRAFFIC Impressions 05/26/2024 10:24 AM MANAGER TRAFFIC 1. Living fetus in cephalic lie with gestational age of 36 weeks 5 days and EDC of 06/18/2024. 2. Biophysical profile score is 8/8. Dictated by Sina Griffith MD @ 05/26/2024 10:24:48 AM (Electronically Signed) Narrative 05/26/2024 10:24 AM MANAGER TRAFFIC For Patients: As a result of the Cures Act, medical imaging exams and procedure reports are released immediately into your electronic medical record. You may view this report before your referring provider. If you have questions, please contact your health care provider. INDICATION: Hypertension TECHNIQUE: Limited transabdominal two-dimensional lewis-scale ultrasound examination. COMPARISON: None FINDINGS: There is a living fetus in cephalic lie with gestational age of 36 weeks 5 days and EDC of 06/18/2024. The biophysical profile score is 8/8 with component scores of 2 for breathing movements, 2 for gross body movements, 2 for tone and 2 for amniotic fluid/SDP. The heart rate is measured at 136 beats per minute and the rhythm appears regular. The amniotic fluid volume is within normal limits with single deepest pocket of 6.2 cm. Procedure Note Sina Griffith MD - 05/26/2024 For Patients: As a result of the Cures Act, medical imagingexams and procedure reports are released immediately into your electronicmedical record. You may view this report before your referring provider.If you have questions, please contact your health care provider. INDICATION: Hypertension TECHNIQUE: Limited transabdominal two-dimensional lewis-scale ultrasoundexamination. COMPARISON: None FINDINGS: There is a living fetus in cephalic lie with gestational age of 36 weeks 5days and EDC of 06/18/2024. The biophysical profile score is 8/8 with component scores of 2 for fetalbreathing movements, 2 for gross body movements, 2 for tone and 2for amniotic fluid/SDP. The heart rate is measured at 136 beats per minute and the rhythmappears regular. The amniotic fluid volume is within normal limits with single deepestpocket of 6.2 cm. IMPRESSION: 1. Living fetus in cephalic lie with gestational age of 36 weeks 5 daysand EDC of 06/18/2024. 2. Biophysical profile score is 8/8. Dictated by Sina Griffith MD @ 05/26/2024 10:24:48 AM (Electronically Signed) Yefri Mejia MD US * VAGINAL/RECTAL OB STREP PCR (05/19/2024 9:51 AM MANAGER TRAFFIC) Vaginal/Rectal OB Strep B PCR Negative 05/21/2024 11:08 AM MANAGER TRAFFIC [facility] Other (Vaginal/Rectal) Non-Blood / Unknown 05/19/2024 9:51 AM MANAGER TRAFFIC 05/19/2024 9:51 AM MANAGER TRAFFIC Yefri Mejia MD MICROBIOLOGY [facility] [address] [place] [id number], [place] * SCAN-LABORATORY REPORT (04/26/2024 12:00 AM [...] Narrative 04/21/2024 4:38 PM CDT For Patients: As a result of the Century Cures Act, medical imaging exams and procedure reports are released immediately into your electronic medical record. You may view this report before your referring provider. If you have questions, please contact your health care provider. INDICATION: Third trimester scan, evaluate growth. COMPARISON: 03/12/2024 TECHNIQUE: Real time lewis scale imaging of the fetus was performed. FINDINGS: Sonographic imaging demonstrates a single living intrauterine gestation. Fetus demonstrates a regular cardiac rate of 140 beats per minute. Fetus has a breech position. The placenta lies anteriorly without evidence of placenta previa. Amniotic fluid volume appears normal and there is a single deepest vertical pocket: 6.4 cm. The estimated weight is 1667gm which lies at the 17th %. On the prior OB ultrasound exam dated 03/12/2024 the estimated weight was at the 20th%. The biometric indices all lie within normal range. The HC/AC ratio measures 1.05 range (0.96-1.17). Procedure [...] vertical pocket: 6.4 cm. The estimated weight [id number] which lies at the 17th %. On [...] ve Non-Reacti ve 03/21/2024 1:51 PM CDT [facility] Blood BLOOD SPECIMEN / Unknown Venipuncture / Unknown 03/20/2024 3:48 PM CDT 03/20/2024 3:51 PM CDT Yefri Mejia MD SEND OUTS Performing Organization Address City/[facility]/ZIP Co de Phone Number [facility] [address] [place] [id number], [place] * TSH (03/20/2024 3:48 PM CDT) Only the most recent of2 resultswithin the time period is included. TSH 1.64 0.27 - 4.20 uIU/mL 03/21/2024 1:51 PM CDT [facility] Blood BLOOD SPECIMEN / Unknown Venipuncture / Unknown 03/20/2024 3:48 PM CDT 03/20/2024 3:51 PM CDT Narrative [facility] - 03/21/2024 1:51 PM CDT In Adults, TSH values between 5.00 and 10.00 uIU/ml do not necessarily indicate the presence of Hypothyroidism. Correlation with clinical findings such as presence of goiter and/or Thyroperoxidase (TPO) Antibody may be helpful. For more information please refer to JUNIOR 2004; 291: 228-238. Yefri Mejia MD CHEMISTRY Performing Organization Address [facility] Co de Phone Number [facility] [address] [place] [phone], [place] * GLUCOSE,GESTATIONAL (03/20/2024 3:48 PM CDT) GLUCOSE,GESTAT IONAL 128 70 - 139 mg/dL 03/20/2024 3:57 PM CDT [facility] Blood BLOOD SPECIMEN / Unknown Venipuncture / Unknown 03/20/2024 3:48 PM CDT 03/20/2024 3:51 PM CDT Yefri Mejia MD CHEMISTRY Performing Organization Address City/[facility]/ZIP Co de Phone Number [facility] [address] [place] [address], [place] [phone] * T4,FREE (03/20/2024 3:48 PM CDT) Only the most recent of2 resultswithin the time period is included. Pathologist [facility] T4,FREE 1.20 0.93 - 1.70 ng/dL 03/21/2024 1:51 PM CDT [facility] Blood BLOOD SPECIMEN / Unknown Venipuncture / Unknown 03/20/2024 3:48 PM CDT 03/20/2024 3:51 PM CDT Yefri Mejia MD CHEMISTRY Performing Organization Address City/[facility]/ZIP Co de Phone Number [facility] [address] [address], [place] * PROTEIN/CREAT RATIO,URINE (02/25/2024 9:25 AM CDT) [facility] PROTEIN QUANT,RAND URINE 14 1 - 14 mg/dL 02/25/2024 7:01 PM CDT [facility] CREAT,RANDOM URINE 169.0 28.0 - 217.0 mg/dL 02/25/2024 7:01 PM CDT [facility] PROT/CREAT RATIO,UR 0.1 <0.2 02/25/2024 7:01 PM CDT [facility] Urine URINE SPECIMEN / Unknown Non-Blood / Unknown 02/25/2024 9:25 AM CDT 02/25/2024 9:25 AM CDT Yefri Mejia MD URINE Performing Organization Address City/[facility]/ZIP Co de Phone Number [facility] [address] [address], [place] * (ABNORMAL) CBC WITH AUTO DIFFERENTIAL (02/25/2024 9:23 AM CDT) [facility] WHITE BLOOD COUNT 12.5(H) 4.5 - 11.0 thou/cu mm 02/25/2024 10:26 AM CDT [facility] RED BLOOD COUNT 4.20 4.00 - 5.20 mil/cu mm 02/25/2024 10:26 AM CDT [facility] HEMOGLOBIN 12.7 12.0 - 16.0 g/dL 02/25/2024 10:26 AM CDT [facility] HEMATOCRIT 37.0 33.0 - 51.0 % 02/25/2024 10:26 AM CDT [facility] MCV 88 80 - 100 fL 02/25/2024 10:26 AM CDT [facility] MCH 30.2 26.0 - 34.0 pg 02/25/2024 10:26 AM CDT [facility] MCHC 34.3 32.0 - 36.0 g/dL 02/25/2024 10:26 AM CDT [facility] RDW 13.7 11.5 - 15.5 % 02/25/2024 10:26 AM CDT [facility] PLATELET COUNT 242 140 - 440 thou/cu mm 02/25/2024 10:26 AM CDT [facility] MPV 9.6 6.5 - 11.0 fL 02/25/2024 10:26 AM CDT [facility] Blood BLOOD SPECIMEN / Unknown Venipuncture / Unknown 02/25/2024 9:23 AM CDT 02/25/2024 9:24 AM CDT [place] [address], * RED CELL MORPHOLOGY (02/25/2024 9:23 AM CDT) RBC COMMENT RBC morphology appears normal RBC morphology appears normal, RBC morphology within normal limits for newborns. 02/25/2024 10:26 AM CDT [facility] Blood BLOOD SPECIMEN / Unknown Venipuncture / Unknown 02/25/2024 9:23 AM CDT 02/25/2024 9:24 AM CDT Yefri Mejia MD HEMATOLOGY [facility] [address] [place] [address], * PLATELET ESTIMATE (02/25/2024 9:23 AM CDT) PLATELET ESTIMATE Adequate Adequate, No estimate 02/25/2024 10:26 AM CDT [facility] Blood BLOOD SPECIMEN / Unknown Venipuncture / Unknown 02/25/2024 9:23 AM CDT 02/25/2024 9:24 AM CDT Yefri Mejia MD HEMATOLOGY [facility] [address] [place] [address], * (ABNORMAL) MANUAL DIFFERENTIAL (02/25/2024 9:23 AM CDT) % NEUTROPHILS 83.0 % 02/25/2024 10:26 AM CDT [facility] % LYMPHOCYTES 9.0 % 02/25/2024 10:26 AM CDT [facility] % MONOCYTES 5.0 % 02/25/2024 10:26 AM CDT [facility] % EOSINOPHILS 3.0 % 02/25/2024 10:26 AM CDT [facility] % BASOPHILS 0.0 % 02/25/2024 10:26 AM CDT [facility] NEUTROPHILS ABSOLUTE 10.4(H) 1.7 - 7.0 thou/cu mm 02/25/2024 10:26 AM CDT [facility] LYMPHOCYTES ABSOLUTE 1.1 0.9 - 2.9 thou/cu mm 02/25/2024 10:26 AM CDT [facility] MONOCYTES ABSOLUTE 0.6 <0.9 thou/cu mm 02/25/2024 10:26 AM CDT [facility] EOSINOPHILS ABSOLUTE 0.4 <0.5 thou/cu mm 02/25/2024 10:26 AM CDT [facility] BASOPHILS ABSOLUTE 0.0 <0.3 thou/cu mm 02/25/2024 10:26 AM CDT [facility] Blood BLOOD SPECIMEN / Unknown Venipuncture / Unknown 02/25/2024 9:23 AM CDT 02/25/2024 9:24 AM CDT Yefri Mejia MD HEMATOLOGY [facility] [address] [place] [address], * ANTI HIV 1/2 (10/24/2023 10:18 AM CDT) Pathologist [facility] HIV-1/HIV-2 SCREEN Non-Reacti ve Non-Reacti ve 10/24/2023 5:15 PM CDT [facility] Comment:HIV-1 p24 and HIV-1/ HIV-2 Ab Not Detected. Blood BLOOD SPECIMEN / Unknown Butterfly / Unknown 10/24/2023 10:18 AM CDT 10/24/2023 10:19 AM CDT Yefri Mejia MD SEND OUTS Performing Organization Address [facility]/ZIP Co de Phone Number [facility] [address] [place] [address], [place] * ANTI HCV (12/14/2021 11:55 AM CDT) Pathologist [facility] HEPATITIS C ANTIBODY Non-React binu Non-React binu 12/15/2021 12:24 AM CDT [facility] Comment:Antibodies to HCV no t detected; does not exclude the possibility of exposure to HCV. Blood BLOOD SPECIMEN / Unknown Venipuncture / Unknown 12/14/2021 11:55 AM CDT 12/14/2021 11:55 AM CDT Rhea BALL SEND OUTS [facility] [address] [place] [address], [place] * HPV HIGH RISK (12/14/2021 11:30 AM CDT) TYPE 16 Negative Negative 12/16/2021 2:51 PM CDT [facility] TYPE 18 Negative Negative 12/16/2021 2:51 PM CDT [facility] OTHER HIGH RISK TYPES Negative Negative 12/16/2021 2:51 PM CDT [facility] Other (Cervical) Non-Blood / Unknown 12/14/2021 11:30 AM CDT 12/15/2021 8:23 AM CDT Narrative [facility] - 12/16/2021 2:51 PM CDT HPV types 16, 18, 31, 33, 35, 39, 45, 51, 52, 56, 58, 59, 66 and 68 DNA were undetectable or below the pre-set threshold. Methodology: Deanna Curtis 4800 HPV Test Rhea BALL MICROBIOLOGY [facility] [address] [place] [address], [place] from Last 3 Months or Most Recently Relevant to Health Maintenance Care Teams [employer] Attacher Relationship Specialty Start Date End Date Yefri Mejia MD [address] [place] [address] PCP - General Family Practice 05/06/[address] [place] [address] Search Marketing Specialist 08/14/23 Yefri Mejia MD [address] [place] [address] Referring Provider Family Practice 12/24/23
[2024-05-27 18:38] LABS: Mean Corpuscular HGB Conc 33 gm/dL (32-36); Mean Corpuscular Hemoglobin 30 pg (26-34); Mean Corpuscular Volume 89 fL (80-100); Platelet Count* 198 K/uL (140-440); White Blood Count* 10.57 K/uL (4.50-11.00)
[2024-05-27 18:39] LABS: Slide Review Reflex No
--- NOTE | 2024-05-27 19:04 | P.OBHP_ITS ---
OB - H&P: HPI Labor/Induction History of Present Illness Time Seen by Provider: 19:07 Date Seen: 05/27/24 Chief Complaint: The patient is a 38 year old 1 para 0 at 36.6 weeks gestation by LMP and consistent with 7 week ultrasound, who presents for IOL for chronic hypertension with superimposed preeclampsia (based off of elevated BP and elevated prot/cr ratio). Chief complaint: OBG : 1 Para: 0 Date of last menstrual period: 09/12/23 Estimated date of delivery: 06/18/24 Gestational age based on last menstrual period: 38 Indications for induction: pre-eclampsia Narrative: Sharri Bailon is a 38 year old 1 para 0 at 36.6 weeks gestation by LMP and consistent with 7 week ultrasound, who presents for IOL for chronic hypertension with superimposed preeclampsia (based off of elevated BP and elevated prot/cr ratio). Patient reports she has felt well. is additionally complicated by hypothyroidism, on synthroid; AMA (Age 38); Anxiety (on sertraline) History of Present Dating criteria: based on LMP (and 7 week ultrasound) care: good care Ultrasounds: normal 1st trimester US and normal mid trimester US (Level 2 ultrasound completed in 2 parts for anatomy views but was reassuring. Growth 24%ile. ) complications: preeclampsia and chronic hypertension Medical complications: psychiatric (anxiety) Labs Blood type: O (+) positive Rubella: immune RPR/VDLR: nonreactive GBS status: negative HBsAG: negative Review of Systems Status of ROS: Reports: 10 or more systems reviewed and unremarkable except as noted in History and below Meds Home Medications and Allergies Home Medications ?Medication ?Instructions ?Recorded ?Confirmed ?Type calcipotriene 0.005 % topical 1 applic topical 08/30/22 10/12/22 History ointment clobetasol 0.05 % scalp solution 1 applic topical 08/30/22 10/12/22 History clobetasol 0.05 % topical cream 1 applic topical 08/30/22 10/12/22 History ketoconazole 2 % shampoo 1 applic topical 08/30/22 10/12/22 History levothyroxine 112 mcg tablet 150 mcg PO QDAY 08/30/22 05/27/24 History sertraline 50 mg tablet 75 mg PO QDAY 08/30/22 05/27/24 History vitamin E 100 unit capsule 180 mg PO DAILY 09/26/22 04/26/24 History aspirin 81 mg tablet,delayed 81 mg PO DAILY 04/23/24 05/22/24 History release gavxcywm-lrb-Gr-FA 1 mg tab PO 04/23/24 History tablet nifedipine 30 mg tablet,extended 60 mg PO BID gestational 04/26/24 05/27/24 History release 24 hr hypertension Allergies Allergy/AdvReac Type Severity Reaction Status Date / Time No Known Drug Allergies Allergy Verified 05/27/24 18:16 OB - H&P: Exam Physical Exam: Vital signs: Pulse BP Pulse Ox 85 138/86 96 05/27/24 18:18 05/27/24 18:18 05/27/24 18:21 Constitutional: Constitutional: no acute distress Routine HEENT Exam: Head: Present atraumatic and normal inspection Routine Neck Exam: Neck: Present full ROM Routine Respiratory Exam: Respiratory: Present CTA bilaterally Routine Cardiovascular Exam: Cardiovascular: RRR, S1 and S2 Routine Exam: Perineum Description: Normal Detailed Labor and Delivery Exam: Patient Gravid: Yes Dilation (cm): 0 Effacement (%): 0 Cervix position: posterior Consistency: firm Cervical ripeness score: 0 Contraction frequency (min): 0 Tachysystole: No Comments: Cephalic position of baby confirmed by bedside ultrasound Fetus (Single): Station: -3 Amniotic Membrane Status: intact Heart Rate Baseline: 120 Monitor Accelerations: Present Monitor Decelerations: None Retirement Variability: Moderate (6-25) Routine Skin Exam: Present intact Comments: psoriatic plaques present. Routine Neurological Exam: Present alert and oriented X3 Routine Psychiatric Exam: Present normal affect OB - Results Labs Labs: Short CBC 05/27/24 Range/Units 18:33 WBC 10.57 (4.50-11.00) K/uL Hgb 13.0 (12.0-16.0) gm/dL Hct 39.0 (33.0-51.0) % Plt Count 198 (140-440) K/uL OB - Problem Based A/P Additional Plan (1) Chronic hypertension with superimposed preeclampsia: Problem details: Chronic hypertension, accelerating blood pressure and superimposed preeclampsia based on elevated prot/cr ratio. Admitted on 60 nifedipine bid and labetalol 200 mg bid. Status: Acute Plan: - repeat Preeclampsia labs tonight - continue Nifedipine 60 mg and Labetalol 200 bid - Preeclampsia assessments. - IOL (2) Obesity (BMI 30.0-34.9): Status: Acute (3) Hypothyroidism (acquired): Problem details: On Synthroid Status: Acute Plan: - continue synthroid during labor (4) AMA (advanced maternal age) primigravida 35+: Status: Acute (5) ULYSSES (generalized anxiety disorder): Problem details: Stable on Sertraline Status: Chronic Plan: - continue Sertraline (6) Psoriasis: Problem details: - may use topical steroids prn Status: Chronic Plan - IOL for chronic HTN with superimposed preeclampsia. Delivery/Labor/Induction Plan Plan: induction Induction method: per misoprostol protocol (Vaginal cytotec per protocol )
[2024-05-27 19:08] LABS: Alanine Aminotransferase* 19 U/L (4-35); Aspartate Amino Transferase* 22 U/L (12-35); Creatinine* 0.4 mg/dL (0.5-1.5); Estimated Glomerular Filt Rate 131 ml/min
[2024-05-27 19:09] LABS: Blood Urea Nitrogen* 10 mg/dL (5-24)
[2024-05-27] MEDS: miSOPROStoL 25 MCG/0.25 TABLET VAGINAL ×2 (20:27→23:12)
[2024-05-27] MEDS: hydrOXYzine pamoate 25 MG CAPSULE 100 MG PO (23:05)
[2024-05-27] MEDS: MORPHINE 10 MG/ML inj IM (23:05)
[2024-05-27] MEDS: SERTRALINE 50 MG TABLET 75 MG PO (23:05)
[2024-05-28] VITALS (22 sets, daily range): BP systolic 119–154; BP diastolic 60–86; PULSE 65–84; RESP 16–18; TEMP 36.4–36.8; O2SAT 96
[2024-05-28] MEDS: LEVOTHYROXINE 75 MCG TABLET 150 MCG PO (02:24)
[2024-05-28] MEDS: miSOPROStoL 25 MCG/0.25 TABLET VAGINAL ×2 (02:28→05:38)
[2024-05-28] MEDS: NIFEdipine 30 MG TAB.ER.24 60 MG PO (05:37)
[2024-05-28] MEDS: LABETALOL HCL 100 MG TABLET 200 MG PO ×2 (05:37→17:09)
[2024-05-28 06:59] LABS: Basophils Percent Auto 0.2 % (0.0-3.0); Eosinophils Percent Auto 0.6 % (0.0-7.0); Hematocrit 40.4 % (33.0-51.0); Hemoglobin* 13.4 gm/dL (12.0-16.0); Mean Corpuscular HGB Conc 33 gm/dL (32-36); Mean Corpuscular Hemoglobin 30 pg (26-34); Mean Corpuscular Volume 90 fL (80-100); Monocytes Percent Auto 7.7 % (0.0-11.0); Neutrophils Percent Auto 74.5 % (42.0-72.0); Platelet Count* 192 K/uL (140-440); RDW Coefficient of Variation % 13.7 % (11.5-15.5); Slide Review Reflex No; White Blood Count* 11.54 K/uL (4.50-11.00)
--- NOTE | 2024-05-28 08:24 | P.OBPN_ITS ---
Subjective Date Seen: 05/28/24 Narrative: Sharri is a 38 yo at 37 weeks who presented last night for cervical ripening for IOL for chronic HTN with superimposed preeclampsia. She had 4 doses of cytotec overnight. She reports occasional uterine tightening, but no significant cramping/contractions. Cervix was 1/40/-3 this morning and cook catheter placed with 60 mL in both uterine and vaginal balloons. Patient tolerated the procedure well. Objective Vital Signs: Last Vital Signs Temp 98.3 F 05/28/24 07:27 Pulse 78 05/28/24 07:27 Resp 18 05/28/24 05:35 BP 139/83 05/28/24 07:27 Pulse Ox 95 05/27/24 20:26 Pelvic Exam Dilation (cm): 1 Effacement (%): 40 Station: -3 Contractions Monitor mode: External Contraction Frequency: occasional Contraction intensity: Mild Assessment Assessment: induction ongoing Station: -3 Status: Category l Heart Rate Baseline: 125 Dot Compliance Coordinator Variability: Moderate (6-25) Monitor Accelerations: Present Monitor Decelerations: None Plan Plan: Cook catheter placed, will start low dose pitocin after about an hour of monitoring. Continue antihypertensives, zoloft and levothyroxine. Epidural per patient request, once in active labor.
[2024-05-28] MEDS: LACTATED RINGERS 1000 ML 1,000 ML 30 ML IV (10:33)
[2024-05-28] MEDS: OXYTOCIN 30 unit/500 ML in NS 30 UNIT/500 ML BAG IVPB (10:34)
[2024-05-28] MEDS: MORPHINE 10 MG/ML inj IM (14:28)
[2024-05-28] MEDS: hydrOXYzine pamoate 25 MG CAPSULE 100 MG PO (14:29)
[2024-05-28] MEDS: SERTRALINE 50 MG TABLET PO (20:37)
[2024-05-28 22:22] LABS: Hematocrit 39.4 % (33.0-51.0); Mean Corpuscular HGB Conc 33 gm/dL (32-36); Mean Corpuscular Hemoglobin 29 pg (26-34); Mean Corpuscular Volume 89 fL (80-100); Platelet Count* 179 K/uL (140-440); Red Blood Count 4.42 m/uL (4.00-5.20); White Blood Count* 12.74 K/uL (4.50-11.00)
[2024-05-28 22:37] LABS: Alanine Aminotransferase* 17 U/L (4-35); Aspartate Amino Transferase* 20 U/L (12-35); Blood Urea Nitrogen* 8 mg/dL (5-24); Creatinine* 0.4 mg/dL (0.5-1.5); Est. Creatinine Clearance* 160.84; Estimated Glomerular Filt Rate 131 ml/min
[2024-05-28 22:56] LABS: Slide Review Reflex No
[2024-05-29] VITALS (79 sets, daily range): BP systolic 116–155; BP diastolic 7–94; PULSE 73–130; RESP 12–18; TEMP 36.5–36.8; O2SAT 92–98
--- NOTE | 2024-05-29 00:41 | P.OBPN_ITS ---
Subjective Date Seen: 05/29/24 Narrative: Sharri is a 38 yo at 37+1 weeks here for IOL for chronic HTN and sup erimposed preeclampsia. She had 4 doses of Cytotec starting 05/27, then cook catheter x12 hours starting at 0800 on 05/28. Cervical exam 1 hour after removal was 2/30/-3. starting a 2245, she reports contractions have increased in intensity with increasing pitocin and she had SROM of clear fluid at 2330. Due to difficulty tracing both contractions and FHTs, IUP and FSE placed without difficulty. Pre-e labs remain WNL this morning and at 2200 tonight. Objective Vital Signs: Last Vital Signs Temp 97.9 F 05/29/24 00:33 Pulse 84 05/29/24 00:33 Resp 18 05/29/24 00:33 BP 155/76 H 05/29/24 00:33 Pulse Ox 96 05/28/24 20:34 Pelvic Exam Dilation (cm): 4 Effacement (%): 80 Station: -2 Contractions Monitor mode: Internal Contraction Frequency: 1-2 Contraction pattern: Regular Contraction intensity: Strong/Firm Pitocin Rate (mU/min): 18 Assessment Assessment: active labor and induction ongoing Station: -2 Amniotic Membrane Status: SROM (clear) Status: Category l Heart Rate Baseline: 125 Correction Variability: Moderate (6-25) Monitor Accelerations: Present Monitor Decelerations: None Plan Plan: Continue Pitocin per protocol. Continue antihypertensives and monitoring for severe signs/symptoms. Epidural per patient request. Anticipate .
[2024-05-29] MEDS: ROPIVACAINE 0.2% 100 ml 100 ML 10 MG EPIDURAL (01:58)
[2024-05-29] MEDS: LIDOCAINE 2% (PF) 5 ML VIAL EPIDURAL ×2 (01:58→04:44)
--- NOTE | 2024-05-29 02:09 | P.ANBPRC_ITS ---
[facility] Medical History (Updated 05/27/24 @ 19:21 by Sumi Neves MD) Obesity (BMI 30.0-34.9) ?E66.9 - Obesity, unspecified (ICD-10) Hypothyroidism (acquired) ?E03.9 - Hypothyroidism, unspecified (ICD-10) Endometrial polyp ?N84.0 - Polyp of corpus uteri (ICD-10) Calculus of ureter (02/18/21) ?N20.1 - Calculus of ureter (ICD-10) Surgical History (Updated 09/26/22 @ 10:41 by Taryn Herman MD) History of D&C (09/26/22) ?Z98.890 - Other specified postprocedural states (ICD-10) History of wisdom tooth extraction ?K08.409 - Partial loss of teeth, unspecified cause, unspecified class (ICD- 10) Family History (Updated 08/29/22 @ 11:39 by Lizbet Parra) Paternal Grandmother Coronary artery disease, Onset Age: 70 Diabetes Maternal Grandmother Coronary artery disease, Onset Age: 60 Maternal Grandfather Stroke, Onset Age: 70 Family/Other Breast cancer, Onset Age: 60 Aunt Breast cancer, Onset Age: 58 Uncle Diabetes FH: testicular cancer, Onset Age: 40 Mother High blood pressure High cholesterol Father High blood pressure High cholesterol Paternal Grandfather Diabetes Liver cancer Social History (Updated 08/30/22 @ 11:52 by Taryn Herman MD) Narrative: Cis-gender, heterosexual woman Relationship status: . 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 Tobacco: Lifetime nonsmoker E-cigarettes: No Alcohol: Yes: 1-2 servings/week Illicit/recreational drugs: No Safety concerns at home or work: No Dietary restriction(s): No Exercise: Yes, walking and weights every day What is your current living situation?: I presently have a place to live Problems where you live: no known problems In the past 12 months, utilities in danger of being shut off: no In the past 12 mos, have been you worried that your food would run out before you had money to buy more?: never true In the past 12 mos, the food you bought just didn't last and you didn't have money to buy more?: never true Smoking Status: Never smoker Do you use any of these nicotine containing products: None Second hand tobacco smoke exposure: No How often do you have a drink containing alcohol: monthly or less How many standard drinks containing alcohol do you have on a typical day: 1 or 2 How often do you have six or more drinks on one occasion: Less than monthly AUDIT-C Alcohol total score: 2 Non-prescribed substance use: marijuana (any form) Non-prescribed substance use details: some edibles Caffeine: No How often does anyone, including family, friends and others, physically hurt you : never How often does anyone, including family, friends and others, insult or talk down to you: never How often does anyone, including family, friends and others, threaten you with harm: never How often does anyone, including family, friends and others, scream or curse at you: never Are you using contraception or practicing any form of control: No service: No Meds Home Medications and Allergies Home Medications ?Medication ?Instructions ?Recorded ?Confirmed ?Type calcipotriene 0.005 % topical 1 applic topical DAILY PRN 08/30/22 05/28/24 History ointment clobetasol 0.05 % scalp solution 1 applic topical DAILY PRN 08/30/22 05/28/24 History clobetasol 0.05 % topical cream 1 applic topical DAILY PRN 08/30/22 05/28/24 History ketoconazole 2 % shampoo 1 applic topical DAILY PRN 08/30/22 05/28/24 History levothyroxine 112 mcg tablet 150 mcg PO QDAY 08/30/22 05/27/24 History sertraline 50 mg tablet 75 mg PO QDAY 08/30/22 05/27/24 History vitamin E 100 unit capsule 180 mg PO DAILY 09/26/22 05/28/24 History aspirin 81 mg tablet,delayed 81 mg PO DAILY 04/23/24 05/27/24 History release qhbamuax-uvq-Ku-FA 1 mg 1 tab PO DAILY PRN 04/23/24 05/28/24 History tablet nifedipine 30 mg tablet,extended 60 mg PO BID gestational 04/26/24 05/27/24 History release 24 hr hypertension Allergies Allergy/AdvReac Type Severity Reaction Status Date / Time No Known Drug Allergies Allergy Verified 11/19/24 18:16 Results Labs Labs: Laboratory Results - last 24 hr 05/27/24 05/28/24 05/28/24 06:03 06:03 22:19 WBC Cancelled 11.54 H 12.74 H Corrected WBC Cancelled RBC Cancelled 4.50 4.42 Hgb Cancelled 13.4 13.0 Hct Cancelled 40.4 39.4 MCV Cancelled 90 89 MCH Cancelled 30 29 MCHC Cancelled 33 33 RDW Coeff of Vinayak Cancelled 13.7 Plt Count Cancelled 192 179 Neut % (Auto) Cancelled 74.5 H Lymph % (Auto) Cancelled 16.0 L [place] % (Auto) Cancelled 7.7 Eos % (Auto) Cancelled 0.6 Baso % (Auto) Cancelled 0.2 Neut # (Auto) Cancelled 8.60 H Lymph # (Auto) Cancelled 1.80 [place] # (Auto) Cancelled 0.90 Eos # (Auto) Cancelled 0.10 Baso # (Auto) Cancelled 0.00 Abs Immat Gran (auto) Cancelled 0.10 Imm/Tot Granulo (auto) Cancelled 1.0 BUN 8 Creatinine 0.4 L Estimated Creat Clear 160.84 Estimated GFR 131 AST 20 ALT 17 Vital Signs Vital Signs: Last Vital Signs Temp 97.9 F 05/29/24 00:33 Pulse 82 05/29/24 02:08 Resp 18 05/29/24 00:33 BP 140/80 H 05/29/24 02:08 Pulse Ox 94 05/29/24 02:07 Weight: 98.52 kg Height: 160.02 cm Anesthesia Procedures Epidural Insertion Patient Location: OB Start Time: :30 Stop Time: 02:15 Start Date: 05/29/24 Stop Date: 05/29/24 Reason for Block: primary anesthetic Patient Position: sitting Performed By: Tobias Addison Preanesthetic Checklist: IV checked, risks and benefits discussed, surgical consent, monitors and equipment checked, pre-op evaluation, timeout performed and anesthesia consent Prep: chlorhexidine gluconate Monitoring: blood pressure monitoring, manager monitoring, continuous pulse oximetry and heart rate Approach: midline Vertebral Space: lumbar (1-5) Needle Type: Tuohy needle Injection Technique: continuous catheter (catheter) Needle gauge: 17 Needle Length (cm): 10 cm Needle Insertion Depth (cm): 5 Catheter Gauge: 19 Catheter Type: multi-orifice Catheter at skin depth (cm): 10 Test Dose Result: negative and lidocaine 1.5% with epinephrine 1 to 200,000
[2024-05-29] MEDS: LACTATED RINGERS 1000 ML 1,000 ML 30 ML IV (02:21)
--- NOTE | 2024-05-29 03:55 | P.OBPN_ITS ---
Subjective Date Seen: 05/29/24 Narrative: Sharri is doing well, now comfortable with epidural. She does feel some c ontractions on left side and starting to feel some rectal pressure. we replaced FSE. Objective Vital Signs: Last Vital Signs Temp 97.7 F 05/29/24 02:30 Pulse 89 05/29/24 03:43 Resp 12 05/29/24 02:30 BP 141/78 H 05/29/24 03:43 Pulse Ox 97 05/29/24 03:40 Pelvic Exam Dilation (cm): 8 Effacement (%): 80 Station: -2 Contractions Monitor mode: Internal Contraction Frequency: 2-3 Contraction pattern: Regular Contraction intensity: Strong/Firm Pitocin Rate (mU/min): 28 Assessment Assessment: active labor Station: -2 Amniotic Membrane Status: SROM (clear) Status: Category l Heart Rate Baseline: 130 Senior Clinical Study Manager Variability: Moderate (6-25) Monitor Accelerations: Present Monitor Decelerations: None Plan Plan: Continue pitocin per protocol. Continue close monitoring of BP signs/symptoms preeclampsia. Anticipate .
[2024-05-29] MEDS: LABETALOL HCL 100 MG TABLET 200 MG PO ×2 (05:07→18:11)
[2024-05-29] MEDS: PHENYLEPHRINE 100 MCG/ML SYRINGE IVP (06:28)
[2024-05-29] MEDS: miSOPROStoL 800 MCG/4 TABLET SUBLINGUAL (07:07)
[2024-05-29] MEDS: METHYLERGONOVINE MALEATE 0.2 MG/ML INJ IM (07:12)
[2024-05-29] MEDS: TRANEXAMIC ACID 100 MG/ML INJ 1000 MG IV (07:19)
--- NOTE | 2024-05-29 07:33 | W.PM.VAGDEL1 ---
Procedure Delivery date: 05/29/24 Procedure Done: Global Events: Chronic Hypertension, Pre-Eclampsia and AMA Intrapartal Events: Labor Induction and Excessive Bleeding Delivery monitor: external FHT and internal uterine Route of delivery: Laceration description: None Estimated blood loss (mL): 300 Anesthesia type: Epidural Disposition: floor Narrative: The patient is a 38 year-old admitted on 05/27/2024 at 36 Weeks, 6 Days gestation for cervical ripening prior to IOL for CTN with superimposed preeclampsia.? Cervical exam on admission was 0 cm/0 % effaced/-4 station with membranes intact in vertex presentation.? Contractions were absent.? heart rate demonstrated baseline 120 bpm with moderate variability, + accelerations, - decelerations; a category 1 tracing.? She had 4 doses of cytotec followed by cook catheter x12 hours and then pitocin per protocol. SROM occurred at 2336 with clear fluid. ? Labor Analgesia:? epidural ? Pitocin:? yes ? Labor onset:? 0347 ? Complete:? 0539 ? Pushing:? 0539 ? heart tones during second stage were category 2 with recurrent variable decels with pushing. ? At 0658 a viable male delivered in vertex OA presentation over intact perineum via spontaneous vaginal delivery.? was placed on maternal abdomen.? Cord was clamped and cut after a 30-60 second delay.? Nose and mouth were bulb suctioned.? Infant weight 5lb9oz.? 2 at 1 minute and 6 at 5 minutes and 8 at 10 minutes.? Shoulder dystocia: no.? Nuchal cord: no. ? Placenta delivered spontaneously and complete at 0704 with a 3 vessel cord. Mom had uterine atony with pp hemorrhage treated with bimanual massage, IV piotcin, rectal cytotec, methergine and TXA. ? Mother and infant were stable after delivery. ? Lacerations:? none. ? Blood loss: 300 mL. Blood loss measurement type: QBL ? Sponge and needles counts are correct. [place] Gender: Male presentation: vertex Placental Delivery Description: Spontaneous Cord Description: 3 Vessels
[2024-05-29] MEDS: DOCUSATE SODIUM 100 MG CAPSULE PO (09:38)
[2024-05-29 10:07] LABS: Rapid Plasma Reagin (RPR) Non Reactive (Non Reactive)
--- NOTE | 2024-05-29 13:06 | PM.ANPOST ---
Post Anesthesia Note Post Anesthesia Note Patient seen: Inpatient Respiratory Status: adequate Cardiovascular Status: adequate Mental Status: baseline Pain: adequate Temp: baseline Anesthetic awareness: N/A Complications: none Follow care: none
[2024-05-29] MEDS: IBUPROFEN 600 MG TABLET PO (19:43)
[2024-05-29] MEDS: SERTRALINE 50 MG TABLET PO (21:17)
[2024-05-30 01:18] VITALS: BP 123/80; PULSE 69; RESP 18; TEMP 36.4; O2SAT 95
[2024-05-30] MEDS: IBUPROFEN 600 MG TABLET PO ×3 (04:15→21:15)
[2024-05-30 04:53] VITALS: BP 123/82; PULSE 87; RESP 18; TEMP 36.4
[2024-05-30 06:36] LABS: Hematocrit 35.4 % (33.0-51.0); Hemoglobin* 11.7 gm/dL (12.0-16.0); Mean Corpuscular HGB Conc 33 gm/dL (32-36); Mean Corpuscular Hemoglobin 30 pg (26-34); Mean Corpuscular Volume 90 fL (80-100); Platelet Count* 162 K/uL (140-440); Red Blood Count 3.94 m/uL (4.00-5.20); White Blood Count* 15.06 K/uL (4.50-11.00)
[2024-05-30 06:51] LABS: Slide Review Reflex No
[2024-05-30 07:21] LABS: Alanine Aminotransferase* 17 U/L (4-35); Aspartate Amino Transferase* 28 U/L (12-35); Blood Urea Nitrogen* 5 mg/dL (5-24); Creatinine* 0.4 mg/dL (0.5-1.5); Est. Creatinine Clearance* 160.84; Estimated Glomerular Filt Rate 131 ml/min
--- NOTE | 2024-05-30 07:41 | PM.OBPNVD1 ---
OB - PN:Subj Subjective Date Seen: 05/30/24 Narrative: Patient seen today on PP day 1. Doing well. H/o cHTN with superimposed pre-eclampsia. BP have been great . Adjusting timing of medication last night and today. Does endorse some swelling. No additional side effects. Lochia decreasing. Ambulating. Tolerating diet. Normal urination. going well. Baby doing well. OB - PN: Obj Exam Physical Exam: Vital signs: Temp Pulse Resp BP Pulse Ox O2 Del Method 97.5 F L 87 18 123/82 95 Room Air 05/30/24 04:53 05/30/24 04:53 05/30/24 04:53 05/30/24 04:53 05/30/24 01:18 05/30/24 04:53 Narrative: Gen: NAD CV: RRR, normal S1,S2, no murmurs Resp: normal rate and effort, clear to auscultation Ext: Warm, dry, 2+ pedal pulses, 1-2+ edema b/l. Calves non-tender to palpation. Mood: Appropriate OB - PN: Obj Data Labs Labs: Laboratory Results - last 24 hr 05/27/24 05/30/24 18:33 06:12 WBC 15.06 H RBC 3.94 L Hgb 11.7 L Hct 35.4 MCV 90 MCH 30 MCHC 33 Plt Count 162 BUN 5 Creatinine 0.4 L Estimated Creat Clear 160.84 Estimated GFR 131 AST 28 ALT 17 RPR Screen Non Reactive OB - PN: A/P Delivery Assessment and Plan (1) Chronic hypertension with superimposed preeclampsia: Problem details: Chronic hypertension, accelerating blood pressure and superimposed preeclampsia based on elevated prot/cr ratio. Admitted on 60 nifedipine bid and labetalol 200 mg bid. Adjusting timing of meds to 9AM/PM, likely discharge on 05/31. Status: Acute (2) Obesity (BMI 30.0-34.9): Status: Acute (3) Hypothyroidism (acquired): Problem details: On Synthroid Status: Acute (4) AMA (advanced maternal age) primigravida 35+: Status: Acute (5) ULYSSES (generalized anxiety disorder): Problem details: Stable on Sertraline Status: Chronic (6) Psoriasis: Problem details: - may use topical steroids prn Status: Chronic Plan Comments: PPD#1 s/p uncomplicated , doing well. Plan: -- Continue current cares. -- Encourage ambulation. -- Take Vitamins while . -- Colace prn for constipation prophylaxis. -- BP monitoring - continue with meds at 9AM/PM
[2024-05-30 08:42] VITALS: BP 126/82; PULSE 75; RESP 16; TEMP 36.5; O2SAT 96
[2024-05-30] MEDS: DOCUSATE SODIUM 100 MG CAPSULE PO (09:05)
[2024-05-30] MEDS: LABETALOL HCL 100 MG TABLET 200 MG PO ×2 (09:09→21:06)
[2024-05-30 12:27] VITALS: BP 122/77; PULSE 74; RESP 16; TEMP 36.7; O2SAT 97
[2024-05-30 16:13] VITALS: BP 124/80; PULSE 80; RESP 17; TEMP 36.5; O2SAT 97
[2024-05-30 21:03] VITALS: BP 145/79; PULSE 78; RESP 16; TEMP 36.5
[2024-05-30] MEDS: SERTRALINE 50 MG TABLET PO (21:09)
[2024-05-31 00:04] VITALS: BP 113/70; PULSE 78; RESP 16; TEMP 36.5
[2024-05-31 04:44] VITALS: BP 120/78; PULSE 78; RESP 16; TEMP 36.7
--- NOTE | 2024-05-31 07:59 | P.DS_ITS ---
DS: Providers Provider Date Seen: 05/31/24 Date of admission: 05/27/24 18:03 Primary care physician: Pooja Shaikh DO Admitting Clinician: Sumi Neves MD Attending Physician on discharge: Meena Mejia MD DS: Diagnosis Discharge Diagnosis (1) Vaginal delivery: Status: Acute Problem details: IOL for cHTN with superimposed preeclampsia, required cytotec, balloon and pi tocin; vaginal delivery on 05/29, uncomplicated. (2) Chronic hypertension with superimposed preeclampsia: Status: Acute Problem details: Chronic hypertension, accelerating blood pressure and superimposed preeclampsia based on elevated prot/cr ratio. Admitted on 60 nifedipine bid and labetalol 200 mg bid. Blood pressure stable on home meds at time of discharge. (3) Hypothyroidism (acquired): Status: Acute Problem details: On Synthroid (4) ULYSSES (generalized anxiety disorder): Status: Chronic Problem details: Stable on Sertraline Exam Narrative: Exam Narrative: Gen: No acute distress CV: Regular rate and rhythm, normal S1,S2, no murmurs Resp: Normal rate and effort, clear to auscultation bilaterally Abd: Soft, uterus firm and nontender at umbilicus Ext: Warm, dry, 2+ pedal pulses, no edema bilaterally. Calves non-tender to palpation. Const: Vital Signs, click to edit/add: Vital Signs - 24 hr 05/30/24 08:42 05/30/24 12:27 05/30/24 16:13 Temperature 97.7 F 98.0 F 97.7 F Pulse Rate [Right Pulse Oximeter] 75 74 80 Respiratory Rate 16 16 17 Blood Pressure [Le ft Arm] 126/82 122/77 124/80 Pulse Oximetry 96 97 97 Oxygen Delivery Me thod Room Air Room Air Room Air 05/30/24 21:03 05/31/24 00:04 05/31/24 04:44 Temperature 97.7 F 97.7 F 98.0 F Pulse Rate [Right Pulse Oximeter] 78 78 78 Respiratory Rate 16 16 16 Blood Pressure [Le ft Arm] 145/79 H 113/70 120/78 Pulse Oximetry Oxygen Delivery Me thod OB - DS: Summary Hospital Course Hospital Course: The patient is a 38 year old G 1 P 1 at 37.1 weeks gestation that was admitted to the Center on 05/27/24 for IOL for cHTN with superimposed preeclampsia. She had an uncomplicated vaginal delivery. She delivered a viable male infant. She is breast feeding. the patient has done well. Blood pressures stable. Star Infant Gender: Male Status at Discharge Functional status at discharge: independent ambulation Overall status at discharge: patient is progressing back to baseline Time Spent with Patient Time attestation: Total time spent providing and/or coordinating discharge services: Discharge Plan Discharge Disposition: Home, Self-Care Date of Admission: 05/27/24 18:03 Primary Care Provider: Pooja Shaikh Condition: Stable Anticipated Discharge Date/Time: 05/31/24 08:02 Discharge Medications: Continued levothyroxine 112 mcg tablet 150 mcg PO QDAY sertraline 50 mg tablet 75 mg PO QDAY Patient Comments: TAKE 1 TABLET BY MOUTH EVERY MORNING. TAKE WITH 25 MG TAB FOR TOTAL OF 75 MG ketoconazole 2 % shampoo 1 applic topical DAILY PRN calcipotriene 0.005 % ointment 1 applic topical DAILY PRN Patient Comments: FOR MAINTENANCE, APPLY TO AFFECTED AREAS DAILY. clobetasol 0.05 % solution 1 applic topical DAILY PRN clobetasol 0.05 % cream 1 applic topical DAILY PRN vitamin E 100 unit capsule 180 mg PO DAILY [id number]-[id number]-[id number] 1 mg tablet 1 tab PO DAILY PRN nifedipine 30 mg Tablet Extended Release 24hr 60 mg PO BID Discontinued aspirin 81 mg tablet,delayed release (DR/EC) 81 mg PO DAILY Discharge Orders: Discharge Order (Routine); Ordered 05/31/24 Ordered By: Ashleigh Gutierrez Patient Education: OB High Blood Pressure DC, OB Star Care, OB Vaginal/Breast Feeding Activity Level: Activity as Tolerated Follow Up Appointments: Pooja Shaikh DO [Primary Care Provider] - Forms: [employer] Info Instructions Discharge Comments: Blood pressure check at weight check on 06/[address] Mejia DS:Data Additional Comments Additional comments: - Pelvic rest for 6 weeks (no intercourse, tampons or douching), or until one week after vaginal bleeding stops. - Daily activities for the first week should be limited to taking care of patient and her baby, and only as tolerated. - Call MD if fever > 100.4 degrees, bleeding more than 1 pad / hour, foul- smelling discharge, passage of golf-ball sized blood clots, or worsening of pain not controlled by medications. - Counseled on signs of post- depression
[2024-05-31 08:34] VITALS: BP 123/82; PULSE 78; RESP 16; TEMP 36.9; O2SAT 97
[2024-05-31] MEDS: ACETAMINOPHEN 500 MG TABLET 1000 MG PO (08:49)
[2024-05-31] MEDS: DOCUSATE SODIUM 100 MG CAPSULE PO (08:50)
[2024-05-31] MEDS: LABETALOL HCL 100 MG TABLET 200 MG PO (08:51)
== END 2024-05-31 12:30 | disposition home or self-care (01) | DRG 806 ==
PROVIDERS: Admitting Provider Family Medicine; PCP Family Medicine; Visit Provider Family Medicine
DX: O10.92 Unspecified pre-existing hypertension complicating childbirth (principal); O72.1 Other immediate postpartum hemorrhage; Z37.0 Single live birth; O11.4 Pre-existing hypertension with pre-eclampsia, complicating childbirth; O99.284 Endocrine, nutritional and metabolic diseases complicating childbirth; E03.9 Hypothyroidism, unspecified; O99.344 Other mental disorders complicating childbirth; F41.1 Generalized anxiety disorder; O99.214 Obesity complicating childbirth; E66.9 Obesity, unspecified; L40.9 Psoriasis, unspecified; Z3A.36 36 weeks gestation of pregnancy
CPT/HCPCS: 01967; 36415; 59200; 82565; 82570; 84156; 84450; 84460; 84520; 85018; 85025; 85027; 86592; 86850; 86900; 86901; 88307; A9270; C1726; J2210; J2270; J2371; J2795; J7120

== ENCOUNTER 2024-11-29 23:04 | Emergency (ER) | payer OTHER, SELFPAY ==
[2024-11-29 23:28] VITALS: BP 131/86; PULSE 79; RESP 16; TEMP 36.4; O2SAT 96; BMI 33.1
[2024-11-29 23:42] LABS: Appearance Urine Clear (Clear); Bilirubin Urine Negative (Negative); Blood Urine Negative (Negative); Color Urine Yellow (Yellow); Glucose Urine Negative (Negative); Ketones Urine Negative (Negative); Leukocyte Esterase Urine Negative (Negative); Nitrite Urine Negative (Negative); Protein Urine Negative (Negative); Specific Gravity Urine 1.015 (1.000-1.030); Urobilinogen Urine 0.2 (0.2-1.0); pH Urine 7.5 (5.0-8.5)
--- NOTE | 2024-11-29 23:47 | CRLHL7_ITS ---
For Patients: As a result of the Century Cures Act, medical imaging exams and procedure reports are released immediately into your electronic medical record. You may view this report before your referring provider. If you have questions, please contact your health care provider. INDICATION: Left lower abdominal pain x1 day. TECHNIQUE: CT abdomen and pelvis acquired with 92 cc of Isovue 370 IV contrast. COMPARISON: CT abdomen and pelvis 02/18/2021. FINDINGS: Lower chest: Unremarkable. Liver: Unremarkable. Normal in size and attenuation. No suspicious masses. Gallbladder and bile ducts: Unremarkable. No stones or inflammation. No biliary dilatation. Pancreas: Unremarkable. No mass or inflammation. Spleen: Unremarkable. Normal in size. No masses. Adrenal glands: Unremarkable. No nodules. Kidneys: Unremarkable. No suspicious masses, stones, or hydronephrosis. GI tract: Unremarkable. Normal in caliber. No sign of mass or inflammation. The appendix is not clearly visualized; however, there are no inflammatory changes in the right lower quadrant. Vasculature: Abdominal aorta is normal in caliber. Mesenteric arteries are patent. Lymph nodes: No lymphadenopathy. Peritoneum/Abdominal Wall: 2.2 cm ovoid focus of fat with [id number] surrounding inflammatory stranding adjacent to the distal descending colon. The adjacent descending colon is otherwise unremarkable small fat-containing umbilical hernia. No free air or significant free fluid. Pelvis: Unremarkable. Bones: Unremarkable for age. IMPRESSION: Findings compatible with epiploic appendagitis adjacent to the distal descending colon. Please note that all CT scans at this facility use dose modulation, iterative reconstruction, and/or weight-based dosing when appropriate to reduce radiation dose to as low as reasonably achievable. Dictated by Redd Mcdonald MD @ 11/30/2024 1:32:36 AM (Electronically Signed)
--- NOTE | 2024-11-29 23:48 | ED.ABDPAIN ---
HPI - Abdominal Pain General Chief Complaint: Abdominal Pain Stated Complaint: abdominal pain Time Seen by Provider: 11/29/24 23:44 History of Present Illness HPI narrative: Patient is a 38-year-old woman with history of kidney stones who comes in tonight with left flank pain. She has had no blood in her urine. No fevers no chills no night sweats no nausea no vomiting. The pain localizes to the pubic region. She had a baby 6 months ago and is using condoms for control. She has no other related symptoms. Her pain is been progressing last 24 hours. Pain is moderate and sharp. Related Data Home Medications ?Medication ?Instructions ?Recorded ?Confirmed calcipotriene 0.005 % topical 1 applic topical DAILY PRN 08/30/22 05/28/24 ointment clobetasol 0.05 % scalp solution 1 applic topical DAILY PRN 08/30/22 05/28/24 clobetasol 0.05 % topical cream 1 applic topical DAILY PRN 08/30/22 05/28/24 ketoconazole 2 % shampoo 1 applic topical DAILY PRN 08/30/22 05/28/24 levothyroxine 112 mcg tablet 150 mcg PO QDAY 08/30/22 05/27/24 sertraline 50 mg tablet 75 mg PO QDAY 08/30/22 05/27/24 vitamin E 100 unit capsule 180 mg PO DAILY 09/26/22 05/28/24 [id number] 1 mg 1 tab PO DAILY PRN 04/23/24 05/28/24 tablet nifedipine 30 mg tablet,extended 60 mg PO BID gestational 04/26/24 05/27/24 release 24 hr hypertension Allergies Allergy/AdvReac Type Severity Reaction Status Date / Time No Known Drug Allergies Allergy Verified 11/30/24 01:22 Review of Systems Status of ROS Reports: 10 or more systems reviewed and unremarkable except as noted in History and below [facility] Medical History Obesity (BMI 30.0-34.9) ?E66.9 - Obesity, unspecified (ICD-10) Hypothyroidism (acquired) ?E03.9 - Hypothyroidism, unspecified (ICD-10) Endometrial polyp ?N84.0 - Polyp of corpus uteri (ICD-10) Calculus of ureter (02/18/21) ?N20.1 - Calculus of ureter (ICD-10) Surgical History History of D&C (09/26/22) ?Z98.890 - Other specified postprocedural states (ICD-10) History of wisdom tooth extraction ?K08.409 - Partial loss of teeth, unspecified cause, unspecified class (ICD-10) Family History Paternal Grandmother Coronary artery disease, Onset Age: 70 Diabetes Maternal Grandmother Coronary artery disease, Onset Age: 60 Maternal Grandfather Stroke, Onset Age: 70 Family/Other Breast cancer, Onset Age: 60 Aunt Breast cancer, Onset Age: 58 Uncle Diabetes FH: testicular cancer, Onset Age: 40 Mother High blood pressure High cholesterol Father High blood pressure High cholesterol Paternal Grandfather Diabetes Liver cancer Social History (Updated 08/30/22 @ 11:52 by Taryn Herman MD) Narrative: Cis-gender, heterosexual woman Relationship status: . 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 Tobacco: Lifetime nonsmoker E-cigarettes: No Alcohol: Yes: 1-2 servings/week Illicit/recreational drugs: No Safety concerns at home or work: No Dietary restriction(s): No Exercise: Yes, walking and weights every day What is your current living situation?: I presently have a place to live Problems where you live: no known problems In the past 12 months, utilities in danger of being shut off: no In past 12 months, lack of transportation kept you from medical appts, meetings, work, or getting things needed for daily living: no In the past 12 mos, have been you worried that your food would run out before you had money to buy more?: never true In the past 12 mos, the food you bought just didn't last and you didn't have money to buy more?: never true Smoking Status: Never smoker Do you use any of these nicotine containing products: None Second hand tobacco smoke exposure: No How often do you have a drink containing alcohol: monthly or less How many standard drinks containing alcohol do you have on a typical day: 1 or 2 How often do you have six or more drinks on one occasion: Less than monthly AUDIT-C Alcohol total score: 2 Non-prescribed substance use: marijuana (any form) Non-prescribed substance use details: some edibles Caffeine: No How often does anyone, including family, friends and others, physically hurt you: never How often does anyone, including family, friends and others, insult or talk down to you: never How often does anyone, including family, friends and others, threaten you with harm: never How often does anyone, including family, friends and others, scream or curse at you: never Are you using contraception or practicing any form of control: No service: No Exam Narrative: Exam Narrative: EXAM GENERAL: Patient appears comfortable and well. EYES: No scleral icterus. LYMPH: No supraclavicular or cervical lymphadenopathy. SKIN: Visible skin seen during exam normal or with benign process only. EXT: No dependent lower extremity pedal edema. HEART: Regular rate and rhythm with no murmurs, rubs, or gallops. LUNGS: Clear to auscultation bilaterally with no crackles or wheezes. ABD: Soft, non tender, non distended. PSYCH: Good eye contact, speech is not pressured. Const: Vital Signs, click to edit/add: Vital Signs - 24 hr 11/29/24 23:28 Temperature 97.6 F Pulse Rate [Pulse Oximeter] 79 Respiratory Rate 16 Blood Pressure [Le ft Upper Arm] 131/86 Pulse Oximetry 96 Oxygen Delivery Me thod Room Air Course Course ED Course: Patient seen examined. CT abdomen pelvis CBC comprehensive metabolic panel lipase UA ordered. Vital Signs Vital signs: Initial Vital Signs Temperature 97.6 F 11/29/24 23:28 Temperature Source Temporal Artery Scan 11/29/24 23:28 Pulse Rate 79 11/29/24 23:28 Respiratory Rate 16 11/29/24 23:28 Blood Pressure 131/86 11/29/24 23:28 Blood Pressure Mean 101 11/29/24 23:28 Blood Pressure Position Sitting 11/29/24 23:28 Pulse Oximetry 96 11/29/24 23:28 Oxygen Delivery Method Room Air 11/29/24 23:28 Vital Signs Temperature 97.6 F 11/29/24 23:28 Pulse Rate 79 11/29/24 23:28 Respiratory Rate 16 11/29/24 23:28 Blood Pressure 131/86 11/29/24 23:28 Pulse Oximetry 96 11/29/24 23:28 Oxygen Delivery Method Room Air 11/29/24 23:28 Temperature 97.6 F 11/29/24 23:28 Pulse Rate 79 11/29/24 23:28 Respiratory Rate 16 11/29/24 23:28 Blood Pressure 131/86 11/29/24 23:28 Pulse Oximetry 96 11/29/24 23:28 Oxygen Delivery Method Room Air 11/29/24 23:28 MDM - Abdominal Pain MDM Narrative Medical decision making narrative: Patient is a 38-year-old woman who presents with left lower quadrant pain. Her CT scan is consistent with epiploic appendagitis. Laboratory studies are reassuring. At this time I did recommend advancement of her diet as tolerated ibuprofen Tylenol rest and follow-up with her primary physician as needed. Lab Data Labs: Lab Results 11/29/24 11/29/24 Range/Units 23:32 23:53 WBC 11.99 H (4.50-11.00) K/uL RBC 4.96 (4.00-5.20) m/uL Hgb 14.2 (12.0-16.0) gm/dL Hct 43.2 (33.0-51.0) % MCV 87 (80-100) fL MCH 29 (26-34) pg MCHC 33 (32-36) gm/dL RDW Coeff of Vinayak 13.1 (11.5-15.5) % Plt Count 285 (140-440) K/uL Neut % (Auto) 69.9 (42.0-72.0) % Lymph % (Auto) 20.5 (20-44) % [place] % (Auto) 6.3 (0.0-11.0) % Eos % (Auto) 1.8 (0.0-7.0) % Baso % (Auto) 0.3 (0.0-3.0) % Neut # (Auto) 8.40 H (1.7-7.0) K/uL Lymph # (Auto) 2.50 (0.90-2.90) K/uL [place] # (Auto) 0.80 (0.00-0.90) K/UL Eos # (Auto) 0.20 (0.00-0.50) K/uL Baso # (Auto) 0.00 (0.00-0.30) K/uL Abs Immat Gran (auto) 0.10 (0.00-0.30) K/uL Imm/Tot Granulo (auto) 1.2 % Sodium 141 (135-149) mmol/L Potassium 3.7 (3.6-5.1) mmol/L Chloride 105 (96-114) mmol/L Carbon Dioxide 29 (20-32) mmol/L Anion Gap 7 (7-15) mEq/L BUN 16 (5-24) mg/dL Creatinine 0.7 (0.5-1.5) mg/dL Estimated Creat Clear 91.91 Estimated GFR 115 ml/min Glucose 104 (60-115) mg/dL Calcium 9.9 (8.4-10.6) mg/dL Total Bilirubin 0.3 (0.1-1.5) mg/dL AST 23 (12-35) U/L ALT 18 (4-35) U/L Alkaline Phosphatase 90 (40-150) U/L Total Protein 7.6 (6.0-8.3) g/dL Albumin 4.6 (3.3-5.0) g/dL Lipase 100 (23-300) U/L HCG, Qual Negative (Negative) Urine Color Yellow (Yellow) Urine Appearance Clear (Clear) Urine pH 7.5 (5.0-8.5) Ur Specific Lowgap 1.015 (1.000-1.030) Urine Protein Negative (Negative) Urine Glucose (UA) Negative (Negative) Urine Ketones Negative (Negative) Urine Blood Negative (Negative) Urine Nitrite Negative (Negative) Urine Bilirubin Negative (Negative) Urine Urobilinogen 0.2 (0.2-1.0) Ur Leukocyte Esterase Negative (Negative) Discharge Plan Discharge Clinical Impression: Epiploic appendagitis Patient Disposition: Home, Self-Care Condition: Stable Additional Instructions: Advanced diet as tolerated Rest Ibuprofen 600 mg 3-4 times per day as needed Tylenol 653-4 times per day as needed Follow-up with your doctor as needed Activity Level: No Restrictions Discharge Diet: Regular Prescriptions: No Action levothyroxine 112 mcg tablet 150 mcg PO QDAY sertraline 50 mg tablet 75 mg PO QDAY Patient Comments: TAKE 1 TABLET BY MOUTH EVERY MORNING. TAKE WITH 25 MG TAB FOR TOTAL OF 75 MG ketoconazole 2 % shampoo 1 applic topical DAILY PRN calcipotriene 0.005 % ointment 1 applic topical DAILY PRN Patient Comments: FOR MAINTENANCE, APPLY TO AFFECTED AREAS DAILY. clobetasol 0.05 % solution 1 applic topical DAILY PRN clobetasol 0.05 % cream 1 applic topical DAILY PRN vitamin E 100 unit capsule 180 mg PO DAILY [id number] 1 mg tablet 1 tab PO DAILY PRN nifedipine 30 mg Tablet Extended Release 24hr 60 mg PO BID Follow Up/Referrals: Pooja Shaikh DO [Staff Physician, Family Practice] Stand Alone Forms: [facility] Info Instructions
[2024-11-30] LABS: Basophils Percent Auto 0.3 % (0.0-3.0); Eosinophils Percent Auto 1.8 % (0.0-7.0); Hematocrit 43.2 % (33.0-51.0); Hemoglobin* 14.2 gm/dL (12.0-16.0); Immature Granulocytes Pct Auto 1.2 %; Lymphocytes Percent Auto 20.5 % (20-44); Mean Corpuscular HGB Conc 33 gm/dL (32-36); Mean Corpuscular Hemoglobin 29 pg (26-34); Mean Corpuscular Volume 87 fL (80-100); Monocytes Percent Auto 6.3 % (0.0-11.0); Neutrophils Percent Auto 69.9 % (42.0-72.0); Platelet Count* 285 K/uL (140-440); RDW Coefficient of Variation % 13.1 % (11.5-15.5); Red Blood Count 4.96 m/uL (4.00-5.20); White Blood Count* 11.99 K/uL (4.50-11.00)
--- OUTSIDE RECORDS SUMMARY | 2024-11-30 00:03 | XMS_ITS | Clinical Summary ---
Author Organization [facility] Address [address] [place] [address] Care Team Providers Care Retail Pricing Coordinator Name Role Phone Michael Coleman Unavailable RobertoMeena MD Unavailable [phone] RobertoMeena MD Primary Care Provider Allergies No known active allergies Medications vit no.124/iron/foli c ( VITAMIN ORAL) Take by mouth. A ctive durable medical equipment (DME)Indications :Elevated blood pressure reading without diagnosis of hypertension,Sup ervision of normal first , antepartum (HC) Automated blood pressure cuff for measuring blood pressure at home. Length of need 99 1 Each 4 Active Breast Pump PurchaseIndicati ons:Care and examination of lactating mother (HC) Electric breast pump for home use. Gestational age at delivery: 40 weeks. Reason for need: return to work. Length of need: 99 months (lifetime use) 1 Each 4 Active triamcinolone (ARISTOCORT; KENALOG) 0.1 % creamIndications :Idiopathic urticaria Apply topically to affected area(s) three times daily. 80 g 4 Active sertraline (ZOLOFT) 50 mg tabletIndication s:Generalized anxiety disorder Take 1 Tablet (50 mg) by mouth once daily in the morning. Take with 25 mg tab for TDD 75 mg 90 Tablet 3 5 Active sertraline (ZOLOFT) 25 mg tabletIndication s:Generalized anxiety disorder Take 1 Tablet (25 mg) by mouth once daily in the morning. Take with 50mg for total of 75mg. 90 Tablet 3 5 Active levothyroxine (SYNTHROID) 125 mcg tabletIndication s:Hypothyroidism (acquired) Take 1 Tablet (125 mcg) by mouth before breakfast. 90 Tablet 3 5 Active NIFEdipine 30 mg extended-release tabletIndication s:Gestational hypertension, third trimester (HC) Take 1 Tablet (30 mg) by mouth once daily before a meal. 90 Tablet 3 5 Active Active Problems Problem Noted Date Diagnosed Date [...] [place] : 1985 REFERRING PROVIDER/CLINIC LOCATION/FAX #: Meena Mejia MD - Belén Brooks Primary provider approves scheduling of recommended ultrasounds/testing: Yes [facility] ULTRASOUND/TESTING PATIENT Support person name: Tobias ULTRASOUND [...] assess remaining anatomy and growth. 10/24/2023 Overview (06/10/2024): Estimated Date of Delivery: 06/18/24 c/w dating US Patient's last menstrual period was 09/12/2023 (approximate). GBS: Vaginal/Rectal OB Strep B PCR Date Value Ref Range Status 05/19/2024 Negative Final 28wk labs: GLUCOSE,GESTATIONAL Date Value Ref Range [...] Surgical History: . Laterality Date BIOPSY ENDOMETRIAL 2023 endometrial biopsy removal OTHER Egg harvesting Problems [...] the best of my knowledge and ability. Resolved Problems Problem Noted Date Diagnosed Date Resolved Date Infertility, female 03/10/20 24 Encounters Date Type Department Care Team Description 10/09/2024 Telephone [facility] [address] [place] [address] Meena Mejia MD 09/24/2024 Refill [facility] [address] [place] [address] Meena Mejia MD Refill Request (Nifedipine ER 60mg) 09/09/2024 Orders Only [facility] Scanner 1 scan: (1-Ord) [facility], LUIS BX RT MEDIAL KNEE, 09/09/2024 09/04/2024 3:15 PM CAR SALESMAN Orders Only [facility] [address] [place] [address] Lab, [place] [facility] 09/04/2024 Travel from Last 3 Months Immunizations Immunization Administration Dates Next Due COVID-19 VACCINE SPIKEVAX (M ODERNA 50MCG/0.5ML) 12YO+ PFS 06/09/2024 COVID-19 vaccine (Moderna Wero virgilio 50mcg/0.25mL) PF, [...] PHQ-2 Answer Date Recorded PHQ-2 TOTAL SCORE 0 07/10/2024 Social Connections Answer Date Recorded Do you often feel lonely or isolated from those around you? 0 07/10/2024 Financial Resource Strain Answer Date R ecorded Difficulty of Paying Living Expenses 3 07/10/2024 Difficulty of Paying Living Expenses Not on file 07/10/2024 Food Insecurity Answer Date Recorded Do you worry your food will run out before you are able to buy more? 1 07/10/2024 Transportation Needs Answer Date Record ed Does lack of transportation keep you from medica l appointments? 1 07/10/2024 Does lack of transportation keep you from work, meetings or getting things that you need? 1 07/10/2024 Housing Stability Answer Date Recorded What is your housing situation today? 1 07/10/2024 Utilities Answer Date Recorded Do you have trouble paying f or utilities (for example, heat, electricity, water, phone)? 1 07/10/2024 Comments No Sex and Gender Information Value Date Recorded Sex Assigned at Female 01/21/2021 10:56 AM CDT Legal Sex Female 10:26 AM CDT Gender Identity Female 01/21/2021 10:56 AM CDT Sexual Orientation Straight 01/21/2021 10 :56 AM CDT Obstetrics History Para Term AB IAB SAB Ectopic Multiple Livin g Live Births 1 1 Date Outcome GA Total Labor Labor/2nd/3rd Weight Sex Type Anes PTL Yolanda A1 A5 Name Clin 2023 Term 37w 1d M VAGINA L ARMANDO Epidur al Livin g 6 8 Tappe r Complications:Pre-eclampsia (HC),Chronic hypertension affecting (HC) Last Filed Vital Signs Vital Sign Reading Time Taken Comments Blood Pressure 115/76 07/10/2024 10:09 AM CAR SALESMAN Pulse 80 07/10/2024 10:09 AM CAR SALESMAN Temperature 36.3 C (97.4 F) 07/24/2023 9:08 AM CAR SALESMAN Respiratory Rate 18 06/30/2019 12:54 PM CAR SALESMAN Oxygen Saturation 97% 07/10/2024 10:09 AM CAR SALESMAN Inhaled Oxygen Concentration - - Weight 85.9 kg (189 lb 6.4 oz) 07/10/2024 10:09 AM CAR SALESMAN Height 160.7 cm (5' 3.25) 07/10/2024 10:[address] Body Mass Index 33.29 07/10/2024 10:09 AM CAR SALESMAN Plan of Treatment Health Maintenance Due Date Last Done Comments BMI (ht and wt on same day) for age 18+ 07/10/2025 07/10/2024, 10/24/2023, 06/08/2023, Additional history exists Depression screening for age 12+ 07/10/2025 07/10/2024, 06/08/2023, 12/14/2021, Additional history exists Pap test for age 21-65 12/14/2026 , 12/14/2021, 11/28/2018 Tetanus booster 03/20/2034 03/20/2024, 0 02/2022, 01/06/2011 Hepatitis B series for 19+ Completed 11/08, 04/04/1994, 02/27/1994 Hepatitis C screening for age 18-79 Completed 12/14/2021 HIV for age 15-65 Completed 10/24/2023, 06/08/2023 Influenza Vaccine Completed 03/20/2024, , 04/03/2022, Additional history exists Tdap Completed 03/20/2024, 0 02/2022, 01/06/2011 COVID-19 vaccine series Completed 06/09/20 24, 05/11/2023, 05/11/2023, Additional history exists Pneumococcal series for age 6-49 Aged Out No longer eligible based on patient's age to complete this topic Procedures Procedure Name Priority Date/Time Associated Diagnosis Comments SCAN-OPERATIVE/PROC EDURE REPORT 09/09/2024 12:00 AM CAR SALESMAN TSH Routine 09/04/2024 3:14 PM CAR SALESMAN Hypothyroidism (acquired) ANTI HIV 1/2 Routine 10/24/2023 10:18 AM CDT , unspecified gestational age (HC) ANTI HCV Routine 12/14/2021 11:55 AM CDT Need for hepatitis C screening test HPV HIGH RISK Routine 12/14/2021 11:30 AM CDT Pap smear for cervical cancer screening from Last 3 Months or Most Recently Relevant to Health Maintenance Results * SCAN-OPERATIVE/PROCEDURE REPORT (09/09/2024 12:00 AM CAR SALESMAN) us Scanner OTHER Final Result * TSH (09/04/2024 3:14 PM CAR SALESMAN) Pathologist [facility] TSH 1.13 mIU/L [facility] [place] Comment: Reference Range > or = 20 Years 0.40-4.50 Ranges First trimester 0.26-2.66 Second trimester 0.55-2.73 Third trimester 0.43-2.91 Blood BLOOD SPECIMEN / Unknown 09/04/2024 3:14 PM CAR SALESMAN 09/04/2024 3:15 PM CAR SALESMAN Meena Mejia MD CHEMISTRY Final R esult [facility] [address] [place] [address], [facility] [address] [place] [address] * ANTI HIV 1/2 (10/24/2023 10:18 AM CDT) Pathologist [facility] HIV-1/HIV-2 SCREEN Non-Reacti ve Non-Reacti ve 10/24/2023 5:15 PM CDT [facility] Comment:HIV-1 p24 and HIV-1/ HIV-2 Ab Not Detected. Blood BLOOD SPECIMEN / Unknown Butterfly / Unknown 10/24/2023 10:18 AM CDT 10/24/2023 10:19 AM CDT Meena Mejia MD SEND OUTS Final R esult [facility] [address] [place] [address], * ANTI HCV (12/14/2021 11:55 AM CDT) HEPATITIS C ANTIBODY Non-React binu Non-React binu 12/15/2021 12:24 AM CDT [facility] Comment:Antibodies to HCV no t detected; does not exclude the possibility of exposure to HCV. Blood BLOOD SPECIMEN / Unknown Venipuncture / Unknown 12/14/2021 11:55 AM CDT 12/14/2021 11:55 AM CDT Rhea BALL SEND OUTS Final Result Performing Organization Address City/[facility]/ZIP Co de Phone Number [facility] [address] [place] [address], * HPV HIGH RISK (12/14/2021 11:30 AM CDT) TYPE 16 Negative Negative 12/16/2021 2:51 PM CDT [facility] TYPE 18 Negative Negative 12/16/2021 2:51 PM CDT [facility] OTHER HIGH RISK TYPES Negative Negative 12/16/2021 2:51 PM CDT [facility] Other (Cervical) Non-Blood / Unknown 12/14/2021 11:30 AM CDT 12/15/2021 8:23 AM CDT Narrative [facility] - 12/16/2021 2:51 PM CDT HPV types 16, 18, 31, 33, 35, 39, 45, 51, 52, 56, 58, 59, 66 and 68 DNA were undetectable or below the pre-set threshold. Methodology: Deanna Curtis 4800 HPV Test Rhea BALL MICROBIOLOGY Final Result [facility] [address] [place] [address], from Last 3 Months or Most Recently Relevant to Health Maintenance Insurance [address] [place] [id number] [facility] [employer] [place] [id number] Care Teams Retail Pricing Coordinator Relationship Specialty Start Date End Date Meena Mejia MD [address] [place] [address] PCP - General Family Practice 05/06/[address] [place] [address] Game Design Instructor 08/14/23 Meena Mejia MD [address] [place] [address] Referring Provider Family Practice 12/24/23
[2024-11-30 00:15] LABS: Slide Review Reflex No
[2024-11-30 00:27] LABS: Albumin* 4.6 g/dL (3.3-5.0); Chloride* 105 mmol/L (96-114)
[2024-11-30 00:28] LABS: Potassium* 3.7 mmol/L (3.6-5.1); Sodium* 141 mmol/L (135-149)
[2024-11-30 00:30] LABS: Alanine Aminotransferase* 18 U/L (4-35); Anion Gap 7 mEq/L (7-15); Aspartate Amino Transferase* 23 U/L (12-35); Blood Urea Nitrogen* 16 mg/dL (5-24); Carbon Dioxide* 29 mmol/L (20-32); Creatinine* 0.7 mg/dL (0.5-1.5); Est. Creatinine Clearance* 91.91; Estimated Glomerular Filt Rate 115 ml/min
[2024-11-30 00:31] LABS: Alkaline Phosphatase* 90 U/L (40-150); Bilirubin Total* 0.3 mg/dL (0.1-1.5); Calcium* 9.9 mg/dL (8.4-10.6); Glucose* 104 mg/dL (60-115); Lipase* 100 U/L (23-300); Total Protein* 7.6 g/dL (6.0-8.3)
[2024-11-30 01:09] LABS: HCG Qualitative Serum* Negative (Negative)
== END 2024-11-30 01:48 | disposition home or self-care (01) ==
PROVIDERS: Emergency Provider Internal Medicine
DX: K65.9 Peritonitis, unspecified (principal)
CPT/HCPCS: 36415; 74177; 80053; 81003; 83690; 84703; 85025; 99283; 99284; Q9967